=== PATIENT | male | born 1935 | race Caucasian/White ===

== ENCOUNTER 2016-12-02 20:18 | Inpatient (IN) | payer MEDICARE, OTHER ==
[~2016-12-02] VITALS: Ht 175.3 cm; Wt 59.0 kg
[~2016-12-02 20:18] MED LIST: ADVAIR 250-501 EACH INH; ALFUZOSIN HCL10 MG PO; AMBIEN5 MG PO; ASPIRIN EC81 MG PO; ATROVENT HFA12.9 GM HHN; AVODART0.5 MG PO; BYSTOLIC 10MG10 MG *; CARDIZEM60 MG PO; CICLOPIROX15 GM TP; CREON DR 24,001 EACH PO; Daliresp; FLOMAX0.4 MG PO; KLONOPIN1 MG PO; LEVAQUIN500 MG PO; LEXAPRO20 MG PO; LIPITOR10 MG PO; LORAZEPAM0.5 MG PO; MACRODANTIN100 MG PO; MEDROL4 MG PO; MEDROL8 MG PO; MOM30 ML PO; MONTELUKAST SOD10 MG PO; MUCINEX600 MG PO; NEXIUM40 MG PO; NICODERM 21MG/241 EA TD; NITROGLYCERIN0.4 MG SL; PROSCAR5 MG PO; PROTONIX40 MG PO; PROVENTIL4 MG INH; SPIRIVA18 MCG INH; SYMBICORT 1601 PUFFS INH; ZAFIRLUKAST10 MG PO; ZOFRAN4 MG PO; ZOLPIDEM TARTRA10 MG PO; [UNRECOGNIZED DRUG - OTHER]
[2016-12-02] MEDS ORDERED: PROPYLTHIOURACI50 MG PO (20:23)
[2016-12-02] MEDS ORDERED: BYSTOLIC10 MG ORAL (20:23)
[2016-12-02] MEDS ORDERED: CREON DR 24,001 EACH PO (20:23)
[2016-12-02] MEDS ORDERED: Solu-MEDROL 125mg Inj IVP ONE (20:30)
[2016-12-02] MEDS: Albuterol ud Inhalation HHN SCH ×2 (20:32→21:14)
[2016-12-02] MEDS: Ipratropium 0.02% Inh Soln 2.5ml UD HHN SCH ×2 (20:32→21:14)
[2016-12-02 21:09] LABS: BASOPHILS % (AUTO) 1.5 % (0.0-2.0); EOSINOPHILS % (AUTO) 4.4 % (0.0-3.0); LYMPHOCYTES % (AUTO) 8.3 % (20.0-45.0); MEAN CORPUSCULAR HEMOGLOBIN 30.6 PG (27.0-31.0); MEAN CORPUSCULAR HGB CONC 31.5 G/DL (32.0-36.0); MEAN CORPUSCULAR VOLUME 97 FL (80-99); MEAN PLATELET VOLUME 6.1 FL (6.5-10.1); NEUTROPHILS % (AUTO) 76.7 % (45.0-75.0); PLATELET COUNT 195 K/UL (150-450); RED BLOOD COUNT 4.59 M/UL (4.70-6.10); RED CELL DISTRIBUTION WIDTH 12.7 % (11.6-14.8); WHITE BLOOD COUNT 10.1 K/UL (4.8-10.8)
[2016-12-02 21:14] VITALS: BP 127/48
[2016-12-02 21:35] LABS: ALANINE AMINOTRANSFERASE 12 U/L (3-41); ALBUMIN/GLOBULIN RATIO 1.7 (1.0-2.7); ANION GAP 6 (5-15); ASPARTATE AMINO TRANSFERASE 18 U/L (5-40); CALCIUM 9.5 mg/dL (8.6-10.2); CARBON DIOXIDE 38 mEQ/L (20-30); CHLORIDE 98 mEQ/L (98-107); CREATININE 0.7 mg/dL (0.7-1.2); HEMOLYSIS 2; POTASSIUM 4.4 mEQ/L (3.4-4.9); SODIUM 142 mEQ/L (135-145); TOTAL PROTEIN 6.5 g/dL (6.6-8.7); TROPONIN I < 0.30 ng/mL (<=0.30)
[2016-12-02 21:45] LABS: CKMB 1.9 ng/mL (< 6.7)
[2016-12-02] MEDS ORDERED: cefTRIAXone 1 GM in D5W 55 ML IVPB SCH (21:45)
[2016-12-02] MEDS ORDERED: Nitroglycerin Subl 0.4mg tab (Bottle Of 25) SL PRN (21:45)
[2016-12-02] MEDS ORDERED: LORazepam 0.5mg tab ORAL PRN ×2 (21:45→22:45)
[2016-12-02] MEDS ORDERED: Solu-MEDROL 125mg Inj IVP SCH (22:00)
[2016-12-02 22:42] VITALS: BP 95/53
--- NOTE | 2016-12-02 22:46 | Emergency Room Report ---
History of Present Illness General Chief Complaint: Dyspnea/Respdistress Source: Patient, Family Member, EMS Present Illness HPI 81 yo Male presents ED for respiratory distress. Per EMS patient called 911 because he was short of breath today. Patient has history of COPD. Per EMS patient was in distress initially and was started on CPAP + nebs. Upon arrival patient is improved but is still wheezing diffusely. Denies any chest pain. Denies any fevers or chills. Denies sick contacts or recent travel. No other aggravating relieving factors. Denies any other associated symptom Allergies: Coded Allergies: No Known Allergies (Unverified , 09/26/12) Patient History Past Medical History: COPD Past Surgical History: none Pertinent Family History: none Social History: Denies: alcohol use, drug use, smoking Immunizations: UTD Reviewed Nursing Documentation: PMH: Agreed, PSxH: Agreed Nursing Documentation-PMH Past Medical History: No History, Except For Hx Cardiac Problems: No Hx Asthma: No Hx COPD: Yes Hx Cancer: No Hx Gastrointestinal Problems: No Hx Neurological Problems: No Review of Systems All Other Systems: negative except mentioned in HPI Physical Exam Vital Signs Date Time Temp Pulse Resp B/P Pulse Ox O2 Delivery O2 Flow Rate FiO2 12/02/16 20:14 113 21 167/93 100 Simple Mask 15.0 Sp02 EP Interpretation: reviewed, normal General Appearance: alert, GCS 15, non-toxic, mild distress Head: normocephalic Eyes: bilateral eye PERRL, bilateral eye normal inspection ENT: normal ENT inspection Neck: normal inspection Respiratory: chest non-tender, speaking full sentences, wheezing Cardiovascular #1: regular rate, rhythm, no edema Gastrointestinal: normal inspection Rectal: deferred Genitourinary: no CVA tenderness Musculoskeletal: normal inspection Neurologic: alert, oriented x3, responsive, motor strength/tone normal, sensory intact, speech normal Psychiatric: normal inspection Skin: normal inspection Lymphatic: normal inspection Medical Decision Making Diagnostic Impression: Primary Impression: COPD exacerbation ER Course Hospital Course 81-year-old M presenting to ED with SOB. h/o COPD Differential diagnoses include: Pneumonia, CHF exacerbation, pneumothorax, fluid overload Clinical course Patient placed on stretcher. On phototypesetting equipment monitor. Patient looks improved but still has diffuse wheezing. Will discontinue the CPAP and continue on nebulizer treatments I ordered labs, IV fluids, EKG, chest x-ray, blood cultures, UA. Labs - no leukocytosis noted, hemoglobin/hematocrit stable, electrolytes okay, lactate okay, troponins negative CXR - hyperinflated lungs. no infiltrates patient does appear improved but still has wheezing, tachycardic. Antibiotics given per Case discussed with Dr. Arevalo (covering for Dion) and he agreed to the patient to his service for further care and support I feel this is a highly complex case requiring extensive working including EKG/ Rhythm strip, Xray/CT/US, Blood/urine lab work, repeat exams while in ED, and administration of strong opiates/narcotics for pain control, admission to hospital or close patient follow up. Diagnosis - COPD exacerbation Patient admitted to telemetry in serious condition Labs Test 12/02/16 20:55 White Blood Count 10.1 K/UL (4.8-10.8) Red Blood Count 4.59 M/UL (4.70-6.10) Hemoglobin 14.0 G/DL (14.2-18.0) Hematocrit 44.5 % (42.0-52.0) Mean Corpuscular Volume 97 FL (80-99) Mean Corpuscular Hemoglobin 30.6 PG (27.0-31.0) Mean Corpuscular Hemoglobin Concent 31.5 G/DL (32.0-36.0) Red Cell Distribution Width 12.7 % (11.6-14.8) Platelet Count 195 K/UL (150-450) Mean Platelet Volume 6.1 FL (6.5-10.1) Neutrophils (%) (Auto) 76.7 % (45.0-75.0) Lymphocytes (%) (Auto) 8.3 % (20.0-45.0) Monocytes (%) (Auto) 9.0 % (1.0-10.0) Eosinophils (%) (Auto) 4.4 % (0.0-3.0) Basophils (%) (Auto) 1.5 % (0.0-2.0) Sodium Level 142 mEQ/L (135-145) Potassium Level 4.4 mEQ/L (3.4-4.9) Chloride Level 98 mEQ/L (98-107) Carbon Dioxide Level 38 mEQ/L (20-30) Anion Gap 6 (5-15) Blood Urea Nitrogen 14 mg/dL (7-23) Creatinine 0.7 mg/dL (0.7-1.2) Estimat Glomerular Filtration Rate mL/min (>60) Glucose Level 131 mg/dL (74-106) Lactic Acid Level 1.10 mmol/L (0.66-2.22) Calcium Level 9.5 mg/dL (8.6-10.2) Total Bilirubin 0.2 mg/dL (0.0-1.2) Aspartate Amino Transf (AST/SGOT) 18 U/L (5-40) Alanine Aminotransferase (ALT/SGPT) 12 U/L (3-41) Alkaline Phosphatase 84 U/L (40-129) Total Creatine Kinase 29 U/L (38-174) Creatine Kinase MB 1.9 ng/mL (< 6.7) Creatine Kinase MB Relative Index 6.5 Troponin I < 0.30 ng/mL (<=0.30) Pro-B-Type Natriuretic Peptide 178 pg/mL (0-450) Total Protein 6.5 g/dL (6.6-8.7) Albumin 4.1 g/dL (3.5-5.2) Globulin 2.4 g/dL Albumin/Globulin Ratio 1.7 (1.0-2.7) EKG Diagnostic Results Rate: tachycardiac Rhythm: NSR ST Segments: no acute changes ASA given to the pt in ED: No Rhythm Strip Diag. Results EP Interpretation: yes Rhythm: NSR, no PVC's, no ectopy Chest X-Ray Diagnostic Results EP Interpretation: Yes Findings: no consolidation, no effusion, no pneumothorax, no acute cardiopulmonary disease, other - hyperinflated lungs Number of Views: 1 Last Vital Signs Date Time Temp Pulse Resp B/P Pulse Ox O2 Delivery O2 Flow Rate FiO2 12/02/16 22:34 139 18 127/48 100 Room Air 15.0 Status: improved Disposition: ADMITTED INPATIENT Condition: Serious Referrals: NOT CHOSEN ESTEPHANIA/,REFERRING (PCP) BIN HEREDIA M.D. Dec 02, 2016 22:46
[2016-12-03] MEDS: cefTRIAXone 1 GM in D5W 55 ML IVPB SCH ×2
[2016-12-03 00:31] VITALS: BP 113/54
[2016-12-03] MEDS: DuoNeb 0.5-3(2.5)mg/3ml neb HHN SCH ×7 (02:09→23:30)
[2016-12-03 02:55] LABS: APPEARANCE,URINE CLEAR; KETONES,URINE NEGATIVE (NEGATIVE); LEUKOCYTE ESTERASE ,URINE 1+ (NEGATIVE); NITRITE,URINE NEGATIVE (NEGATIVE); PH,URINE 5 (4.5-8.0); PROTEIN,URINE 1+ (NEGATIVE); UROBILINOGEN,URINE NORMAL MG/DL (0.0-1.0)
[2016-12-03 03:08] LABS: BACTERIA,URINE FEW /HPF; MUCUS,URINE FEW /LPF (NONE/OCC); RBC,URINE 0-2 /HPF (0 - 0); SQUAMOUS EPITHELIAL CELL,UR FEW /LPF (NONE/OCC)
[2016-12-03 04:16] VITALS: BP 123/64
[2016-12-03] MEDS: Solu-MEDROL 125mg Inj IVP SCH ×3 (06:25→21:00)
[2016-12-03 07:10] LABS: MEAN CORPUSCULAR HEMOGLOBIN 30.9 PG (27.0-31.0); MEAN CORPUSCULAR HGB CONC 32.4 G/DL (32.0-36.0); MEAN CORPUSCULAR VOLUME 96 FL (80-99); MEAN PLATELET VOLUME 6.8 FL (6.5-10.1); PLATELET COUNT 201 K/UL (150-450); RED BLOOD COUNT 4.03 M/UL (4.70-6.10); RED CELL DISTRIBUTION WIDTH 13.3 % (11.6-14.8); WHITE BLOOD COUNT 6.8 K/UL (4.8-10.8)
[2016-12-03 07:20] LABS: ALANINE AMINOTRANSFERASE 11 U/L (3-41); ALBUMIN/GLOBULIN RATIO 1.4 (1.0-2.7); ANION GAP 16 (5-15); ASPARTATE AMINO TRANSFERASE 16 U/L (5-40); CALCIUM 9.4 mg/dL (8.6-10.2); CARBON DIOXIDE 28 mEQ/L (20-30); CHLORIDE 103 mEQ/L (98-107); CREATININE 0.8 mg/dL (0.7-1.2); HEMOLYSIS 8; POTASSIUM 4.2 mEQ/L (3.4-4.9); SODIUM 147 mEQ/L (135-145); TOTAL PROTEIN 5.7 g/dL (6.6-8.7)
[2016-12-03 08:00] VITALS: BP 125/69
[2016-12-03] MEDS: Montelukast 10mg tablet ORAL SCH (09:26)
[2016-12-03] MEDS: Pancrease Cap ORAL SCH ×3 (09:27→18:07)
[2016-12-03] MEDS: Aspirin EC 81mg tab ORAL SCH (09:27)
[2016-12-03] MEDS: Propylthiouracil 50mg tab ORAL SCH ×3 (09:27→18:07)
[2016-12-03] MEDS: Heparin 5000 units/ml inj SUBQ SCH ×2 (09:31→21:10)
[2016-12-03] MEDS: Advair 250/50 Inhaler - 14 dose INH SCH ×2 (09:55→18:38)
--- NOTE | 2016-12-03 10:05 | Diagnostic Imaging Report ---
Indication: SOB Technique: One view of the chest Comparison: none Findings: Lungs and pleural spaces are clear. Heart size is normal. No significant interim change Impression: No acute process This agrees with the preliminary interpretation provided by the emergency room physician
[2016-12-03 11:00] LABS: BAND NEUTROPHILS % (MANUAL) 0 % (0-8); BASOPHILS % (MANUAL) 0 % (0-2); EOSINOPHILS % (MANUAL) 0 % (0-3); LYMPHOCYTES % (MANUAL) 2 % (20-45); NEUTROPHILS % (MANUAL) 97 % (45-75); PLATELET ESTIMATE ADEQUATE; PLATELET MORPHOLOGY NORMAL; TOTAL CELLS COUNTED 100
[2016-12-03 12:00] VITALS: BP 137/84
--- NOTE | 2016-12-03 12:47 | Consultation ---
Consult Note Assessment/Plan [id number] MARTINA ATWOOD M.D. Dec 03, 2016 12:47
[2016-12-03 13:01] LABS: ABG PCO2 66.8 mmHg (35.0-45.0)
[2016-12-03 13:02] LABS: ABG ALLEN TEST POSITIVE; ABG BASE EXCESS 6.8
[2016-12-03] MEDS ORDERED: DuoNeb 0.5-3(2.5)mg/3ml neb HHN PRN (13:30)
--- NOTE | 2016-12-03 15:37 | History and Physical Report ---
DATE OF ADMISSION: 12/02/2016 CHIEF COMPLAINT: Chronic obstructive pulmonary disease exacerbation and shortness of breath. HISTORY OF PRESENT ILLNESS: The patient is a pleasant 81-year-old male. He has a history of chronic obstructive pulmonary disease, hypertension, pancreatic insufficiency who presented from home with complaints of several days of progressive shortness of breath. He had been using nebulizers at home but has failed to improve. He presented to the emergency room, there he was initially placed on BiPAP. Because of respiratory distress, he has received a dose of intravenous steroids and additional breathing treatment, he has improved but remains significantly symptomatic. He is now admitted for further evaluation and care. The patient denies any fevers or chills. He has had nonproductive cough. He denies any ill contacts. PAST MEDICAL HISTORY: As above. PAST SURGICAL HISTORY: None. CURRENT MEDICATIONS: Reconciled and reviewed. ALLERGIES: None. SOCIAL HISTORY: The patient is a former smoker but quit. No alcohol or drugs. FAMILY HISTORY: None. REVIEW OF SYSTEMS: General: No fever or chills. HEENT: No headaches or visual changes. Cardiopulmonary: Positive shortness of breath, chest tightness. Mild nonproductive cough. Gastrointestinal: No nausea or vomiting. Genitourinary: No urgency or frequency. Musculoskeletal: No joint pain or swelling. Neurologic: No evidence of seizures. PHYSICAL EXAMINATION: VITAL SIGNS: Temperature 98 degrees, blood pressure 123/64, pulse of 108, respirations 20, O2 saturation 98% on 3 liters nasal cannula. GENERAL: The patient is a well-developed male, in no apparent distress. HEART: Regular rate and rhythm. LUNGS: Significant for poor breath sounds with diffuse wheezes and poor air movement. ABDOMEN: Soft, nontender, nondistended. EXTREMITIES: Without clubbing or cyanosis. LABORATORY AND DIAGNOSTIC DATA: White count of 10, hemoglobin 14, hematocrit 44, platelets 195,000. Sodium 142, potassium 4.4, glucose 131, creatinine 0.7. Troponin was negative. Urine was clear. Chest x-ray also was clear ASSESSMENT: This is a pleasant male admitted with complaints of shortness of breath secondary to severe chronic obstructive pulmonary disease exacerbation. 1. Chronic obstructive pulmonary disease exacerbation. 2. Hypertension. 3. History of . PLAN: 1. IV steroids. 2. Respiratory treatments. 3. Empiric antibiotic therapy. 4. Pulmonary consultation and monitor. 5. We will follow up chest x-ray results. 6. The patient will receive deep venous thrombosis and stress ulcer prophylaxis. Nilo Arevalo M.D. DR: Sarabjit JOB#: [id number] CC:
[2016-12-03 16:00] VITALS: BP 119/55
--- NOTE | 2016-12-03 18:27 | Consultation ---
DATE OF CONSULTATION: 12/03/2016 PULMONARY CONSULTATION This is in coverage of Dr. Munir Ashley. CONSULTING PHYSICIAN: Aime Lawrence M.D. REFERRING PHYSICIAN: Nilo Arevalo M.D. REASON FOR CONSULTATION: COPD exacerbation. HISTORY OF PRESENT ILLNESS: The patient is an 81-year-old male smoker with history of COPD, hypertension, hyperlipidemia, tremor, osteoporosis, and tobacco use who presented to the ER after EMS was called with shortness of breath. The patient has been having shortness of breath and wheezing for several days. He has been using his Advair, Spiriva, and p.r.n. albuterol without relief. No fever or chills. No rhinorrhea or congestion. No headaches or dizziness. No nausea, vomiting, diarrhea, or constipation. Chest x-ray was unremarkable. He was started on IV steroids, bronchodilators, and antibiotics and has been transferred to the floor. PAST MEDICAL HISTORY: 1. COPD. 2. Hypertension. 3. Hyperlipidemia. 4. Essential tremor. 5. BPH. 6. History of pancreatic insufficiency. 7. Insomnia. ALLERGIES: No known drug allergies. MEDICATIONS: Prior to admission medications reviewed. SOCIAL HISTORY: He is a smoker. No drug or alcohol. FAMILY HISTORY: Noncontributory. REVIEW OF SYSTEMS: Negative other than HPI. PHYSICAL EXAMINATION: VITAL SIGNS: Temperature 97.1, pulse 97, blood pressure 125/69, respiratory rate 17, and saturating 95% on 2 liters. GENERAL: He is an elderly male, in no acute distress. Awake, alert, and oriented x3. HEENT: Normocephalic and atraumatic. Oropharynx is clear with moist mucous membranes. NECK: Supple without lymphadenopathy or JVP. CHEST: Distant with faint wheezing. HEART: Regular rate and rhythm. ABDOMEN: Soft, nontender, and nondistended. EXTREMITIES: No cyanosis, clubbing, or edema. He does have bilateral upper extremity intention tremor. ANCILLARY DATA: Sodium 147, potassium 4.2, chloride 102, bicarbonate 28, BUN 14, creatinine 0.8, glucose 186. Lactic acid 1.1. LFTs within normal limits. Albumin 3.4 and protein 5.7. White count 6.8, hemoglobin 12.5, hematocrit 38.5, and platelet count 201,000. Urinalysis, 1+ glucose, 1+ protein, and 1+ leukocyte esterase. Influenza A and B negative. Chest x-ray, senescent changes were noted. There were no infiltrates, effusions, or consolidation. There was evidence of hyperinflation. Please note this was reviewed by myself. ASSESSMENT: The patient is an 81-year-old male smoker with a history of chronic obstructive pulmonary disease, hypertension, hyperlipidemia, benign prostatic hyperplasia, and insomnia, presenting with shortness of breath, likely secondary to an exacerbation of his underlying chronic obstructive pulmonary disease. PROBLEM LIST: 1. Chronic obstructive pulmonary disease with acute exacerbation. 2. Hypoxemic respiratory failure secondary to above. 3. Likely superimposed respiratory infection, viral upper respiratory tract infection versus community-acquired tracheobronchitis. 4. Urinary tract infection. 5. Benign prostatic hyperplasia. 6. Hypertension. 7. Hyperlipidemia. 8. Insomnia. 9. History of pancreatic insufficiency. TREATMENT PLAN: 1. Optimize pulmonary hygiene, mobilize as tolerated. 2. Round the clock and p.r.n. DuoNebs. 3. Continue Solu-Medrol 60 IV 3 t.i.d. for now. We will taper based on clinical response. 4. Continue Levaquin. 5. Follow up sputum culture and respiratory panel. 6. Check ABG. 7. We will check a duplex and a D-dimer to rule out venous thromboembolism. 8. Monitor volumes. 9. Heparin subcutaneous for DVT prophylaxis. 10. Continue the patient's Advair. 11. Hold Spiriva while on [id number] ipratropium. We will resume once the patient's bronchodilators have been spaced out. 12. Aspiration precautions. 13. The patient is Full Code. Dr. Arevalo, thank you for allowing us to assist in the care of your patient. If we may be of any assistance in the future, please do not hesitate to ask. Damien Madrid JOB#: [id number] CC:
[2016-12-03 20:00] VITALS: BP 120/69
[2016-12-03] MEDS: Milk of Magnesia 30ml Ud ORAL SCH (21:00)
[2016-12-03] MEDS: Tamsulosin 0.4mg cap ORAL SCH (21:00)
[2016-12-03] MEDS: Zolpidem 5mg tab ORAL SCH (21:00)
[2016-12-04 00:09] VITALS: BP 132/64
[2016-12-04] MEDS: cefTRIAXone 1 GM in D5W 55 ML IVPB SCH (00:09)
[2016-12-04] MEDS: DuoNeb 0.5-3(2.5)mg/3ml neb HHN SCH ×6 (03:31→22:53)
[2016-12-04 04:17] VITALS: BP 124/62
--- NOTE | 2016-12-04 05:57 | Consultation ---
DATE OF CONSULTATION: 12/03/2016 CARDIOLOGY CONSULTATION CONSULTING PHYSICIAN: Farhad Esparza M.D. REQUESTING PHYSICIAN: Nilo Arevaol M.D. REASON FOR CONSULTATION: Tachycardia. HISTORY OF PRESENT ILLNESS: This is an 81-year-old male, presented to the emergency room last night with shortness of breath of one day duration. He was using nebulizers frequently and placed on CPAP in the emergency room, but continued to have distress. He was admitted to the hospital for further management. I have been asked to assist with cardiovascular care addressing his rapid heart rate. The patient denies chest pain. He has noted palpitations. PAST MEDICAL HISTORY: COPD. MEDICATIONS: Reviewed and reconciled. ALLERGIES: None known. REVIEW OF SYSTEMS: No history of irregular heartbeats or atrial fibrillation. No history of endocarditis. No history of myocardial infarction. No known history of blood clotting. PHYSICAL EXAMINATION: VITAL SIGNS: Blood pressure 127/48, pulse 139, respirations 18, and afebrile. HEENT: Normocephalic and atraumatic. Conjunctivae pink. Oropharynx is clear. Mucous membranes dry. NECK: Supple with accessory muscle use. LUNGS: With diminished breath sounds and diffuse expiratory wheezes. CARDIAC: Regular rhythm. Rapid rate. Normal S1 and S2. ABDOMEN: Soft. EXTREMITIES: Without edema. There is no asterixis. LABORATORY AND DIAGNOSTIC DATA: White count 10.1 and hemoglobin 14. Sodium 142, potassium 4.4, bicarbonate 38, BUN 14, and creatinine 0.7. Pro-natriuretic peptide 178. Troponin negative. EKG, sinus tachycardia with no acute abnormalities. Chest x-ray with no acute process. seen. IMPRESSION: 1. Chronic obstructive pulmonary disease with acute exacerbation. 2. Acute bronchospasm. 3. Sinus tachycardia secondary to respiratory insufficiency and inhaled beta agonist therapy. PLAN: 1. Hydration with cautious intravenous steroids. 2. Avoid beta agonist with rapid heart rates above 100. 3. Consider ipratropium and cardiac monitoring. 4. DVT prophylaxis. 5. Venous duplex to assess for possible source of pulmonary emboli. 6. The patient is at high risk in for decompensation in this clinical setting. Farhad Esparza M.D. DR: Berenice JOB#: [id number] CC:
[2016-12-04] MEDS: Solu-MEDROL 125mg Inj IVP SCH ×3 (06:03→22:28)
[2016-12-04 08:00] VITALS: BP 131/72
[2016-12-04 08:24] LABS: ALANINE AMINOTRANSFERASE 29 U/L (3-41); ALBUMIN/GLOBULIN RATIO 1.9 (1.0-2.7); ANION GAP 6 (5-15); ASPARTATE AMINO TRANSFERASE 33 U/L (5-40); CALCIUM 9.4 mg/dL (8.6-10.2); CARBON DIOXIDE 36 mEQ/L (20-30); CHLORIDE 101 mEQ/L (98-107); CREATININE 0.8 mg/dL (0.7-1.2); HEMOLYSIS 12; MAGNESIUM 2.2 mg/dL (1.7-2.5); POTASSIUM 4.6 mEQ/L (3.4-4.9); SODIUM 143 mEQ/L (135-145); TOTAL PROTEIN 5.8 g/dL (6.6-8.7)
[2016-12-04] MEDS: Montelukast 10mg tablet ORAL SCH (08:26)
[2016-12-04] MEDS: Propylthiouracil 50mg tab ORAL SCH ×3 (08:26→18:12)
[2016-12-04] MEDS: Pancrease Cap ORAL SCH ×3 (08:26→18:12)
[2016-12-04] MEDS: Aspirin EC 81mg tab ORAL SCH (08:27)
[2016-12-04] MEDS: Advair 250/50 Inhaler - 14 dose INH SCH ×2 (08:27→19:36)
[2016-12-04] MEDS: Heparin 5000 units/ml inj SUBQ SCH ×2 (08:28→22:28)
--- NOTE | 2016-12-04 09:19 | General Progress Note ---
Assessment/Plan Problem List: (1) COPD exacerbation ICD Codes: J44.1 - Chronic obstructive pulmonary disease with (acute) exacerbation SNOMED: 208646341, [id number] Status: stable Assessment/Plan iv steoids resp rx iv abx monitor abg/cxr Subjective ROS Limited/Unobtainable: No Constitutional: Reports: malaise, weakness HEENT: Reports: no symptoms Cardiovascular: Reports: no symptoms Respiratory: Reports: cough, shortness of breath, wheezing Gastrointestinal/Abdominal: Reports: no symptoms Genitourinary: Reports: no symptoms Neurologic/Psychiatric: Reports: no symptoms Endocrine: Reports: no symptoms Hematologic/Lymphatic: Reports: no symptoms Allergies: Coded Allergies: No Known Allergies (Unverified , 09/26/12) All Systems: reviewed and negative except above Subjective still sob. on venti mask. "a little better." no chest pain on iv steroids and iv abx. Objective Last 24 Hour Vital Signs Date Time Temp Pulse Resp B/P Pulse Ox O2 Delivery O2 Flow Rate FiO2 12/04/16 08:00 97.5 80 19 131/72 97 Venturi Mask 8.0 12/04/16 06:04 86 124/62 12/04/16 04:17 98.3 86 20 124/62 97 12/04/16 04:00 84 12/04/16 03:20 82 18 98 Venturi Mask 8.0 40 12/04/16 03:20 84 18 99 Venturi Mask 8.0 40 12/04/16 00:09 98.7 88 21 132/64 95 Room Air 12/04/16 00:00 81 12/03/16 23:30 78 18 96 Venturi Mask 8.0 40 12/03/16 23:30 81 18 97 Venturi Mask 8.0 40 12/03/16 21:29 Nasal Cannula 12/03/16 21:28 Nasal Cannula 12/03/16 21:10 100 121/48 12/03/16 20:00 94 12/03/16 20:00 98.0 95 20 120/69 95 12/03/16 18:43 85 18 98 Venturi Mask 8.0 40 12/03/16 18:42 87 18 98 Venturi Mask 8.0 40 12/03/16 18:41 96 Venturi Mask 2.0 40 12/03/16 18:41 Venturi Mask 10.0 40 12/03/16 16:00 91 12/03/16 16:00 97.5 90 20 119/55 96 12/03/16 15:58 87 20 98 Venturi Mask 8.0 35 12/03/16 15:48 85 20 97 Venturi Mask 8.0 40 12/03/16 13:14 90 125/69 12/03/16 12:00 97.7 98 18 137/84 95 12/03/16 11:17 90 20 97 Nasal Cannula 2.0 12/03/16 11:07 88 20 96 Nasal Cannula 2.0 12/03/16 09:58 92 20 92 Nasal Cannula 2.0 12/03/16 09:55 91 20 92 Nasal Cannula 2.0 12/03/16 09:52 91 20 92 Nasal Cannula 12/03/16 09:50 91 20 92 Nasal Cannula 2.0 Intake and Output 12/03/16 12/04/16 19:00 07:00 Intake Total 640 ml 55 ml Output Total 450 ml 300 ml Balance 190 ml -245 ml Intake Oral 640 ml IV Total 55 ml Output Urine Total 450 ml 300 ml # Voids 2 2 Laboratory Tests 12/03/16 12:37: Arterial Blood pH 7.330L, Arterial Blood Partial Pressure CO2 66.8*H, Arterial Blood Partial Pressure O2 93.9, Arterial Blood HCO3 34.9H, Arterial Blood Oxygen Saturation 96.3, Arterial Blood Base Excess 6.8, Maxi Test Positive 12/04/16 07:30: Sodium Level 143, Potassium Level 4.6, Chloride Level 101, Carbon Dioxide Level 36H, Anion Gap 6, Blood Urea Nitrogen 30H, Creatinine 0.8, Estimat Glomerular Filtration Rate , Glucose Level 161H, Calcium Level 9.4, Magnesium Level 2.2, Total Bilirubin < 0.2, Aspartate Amino Transf (AST/SGOT) 33, Alanine Aminotransferase (ALT/SGPT) 29, Alkaline Phosphatase 65, Pro-B-Type Natriuretic Peptide 1379H, Total Protein 5.8L, Albumin 3.8, Globulin 2.0, Albumin/Globulin Ratio 1.9 Height (Feet): 5 Height (Inches): 9.00 Weight (Pounds): 130 General Appearance: WD/WN, alert Neck: supple Cardiovascular: normal rate, regular rhythm Respiratory/Chest: expiratory wheezing Abdomen: normal bowel sounds, non tender, soft, no organomegaly Edema: no edema noted Arm (L), no edema noted Arm (R), no edema noted Leg (L), no edema noted Leg (R), no edema noted Pedal (L), no edema noted Pedal (R), no edema noted Generalized CRYSTAL FOSTER Dec 04, 2016 09:19
[2016-12-04 12:00] VITALS: BP 123/71
[2016-12-04 16:00] VITALS: BP 102/78
[2016-12-04 20:00] VITALS: BP 117/61
--- NOTE | 2016-12-04 20:54 | Pulmonology Progress Note ---
Assessment/Plan Assessment/Plan PROBLEM LIST: 1. Chronic obstructive pulmonary disease with acute exacerbation. 2. Hypoxemic respiratory failure secondary to above. 3. Likely superimposed respiratory infection, viral upper respiratory tract infection versus community-acquired tracheobronchitis. 4. Urinary tract infection. 5. Benign prostatic hyperplasia. 6. Hypertension. 7. Hyperlipidemia. 8. Insomnia. 9. History of pancreatic insufficiency. TREATMENT PLAN: 1. Optimize pulmonary hygiene, mobilize as tolerated. 2. Round the clock and p.r.n. DuoNebs. 3. Continue Solu-Medrol 60 IV 3 t.i.d. for now. We will taper based on clinical response. 4. Continue Levaquin. 5. Follow up sputum culture and respiratory panel. 6. Check ABG. 7. We will check a duplex and a D-dimer to rule out venous thromboembolism. 8. Monitor volumes. 9. Heparin subcutaneous for DVT prophylaxis. 10. Continue the patient's Advair. 11. Hold Spiriva while on [id number] ipratropium. We will resume once the patient's bronchodilators have been spaced out. 12. Aspiration precautions. 13. The patient is Full Code. Subjective Constitutional: Reports: no symptoms HEENT: Repors: no symptoms Respiratory: Reports: dry cough, wheezing Cardiovascular: Reports: no symptoms Gastrointestinal/Abdominal: Reports: no symptoms Genitourinary: Reports: no symptoms Neurologic: Reports: no symptoms Endocrine: Reports: no symptoms Hematologic: Reports: no symptoms Allergies: Coded Allergies: No Known Allergies (Unverified , 09/26/12) Subjective awake remains on fm still wheezing but better no cp nv or bleeding toelrating po no fever Objective Last 24 Hour Vital Signs Date Time Temp Pulse Resp B/P Pulse Ox O2 Delivery O2 Flow Rate FiO2 12/04/16 19:51 95 18 98 Venturi Mask 8.0 40 12/04/16 19:30 95 18 98 Venturi Mask 8.0 40 12/04/16 19:20 82 Venturi Mask 8.0 40 12/04/16 19:20 82 18 98 Venturi Mask 8.0 40 12/04/16 19:20 82 19 98 Venturi Mask 8.0 40 12/04/16 19:20 Venturi Mask 8.0 40 12/04/16 16:00 71 12/04/16 16:00 97.2 77 20 102/78 92 Nasal Cannula 4.0 12/04/16 15:35 85 20 97 Nasal Cannula 5.0 40 12/04/16 15:30 82 20 93 Nasal Cannula 5.0 40 12/04/16 13:05 68 123/71 12/04/16 12:00 68 12/04/16 12:00 97.4 78 19 123/71 97 Nasal Cannula 4.0 12/04/16 11:35 84 20 99 Venturi Mask 8.0 40 12/04/16 11:30 82 20 97 Venturi Mask 8.0 40 12/04/16 09:30 80 19 97 Venturi Mask 8.0 40 12/04/16 09:30 82 20 97 Venturi Mask 8.0 40 12/04/16 08:00 97.5 80 19 131/72 97 Venturi Mask 8.0 12/04/16 08:00 78 12/04/16 07:35 82 20 99 Venturi Mask 8.0 40 12/04/16 07:30 Venturi Mask 8.0 40 12/04/16 07:30 82 Venturi Mask 8.0 40 12/04/16 07:30 80 19 97 Venturi Mask 8.0 40 12/04/16 06:04 86 124/62 12/04/16 04:17 98.3 86 20 124/62 97 12/04/16 04:00 84 12/04/16 03:20 82 18 98 Venturi Mask 8.0 40 12/04/16 03:20 84 18 99 Venturi Mask 8.0 40 12/04/16 00:09 98.7 88 21 132/64 95 Room Air 12/04/16 00:00 81 12/03/16 23:30 78 18 96 Venturi Mask 8.0 40 12/03/16 23:30 81 18 97 Venturi Mask 8.0 40 12/03/16 21:29 Nasal Cannula 12/03/16 21:28 Nasal Cannula 12/03/16 21:10 100 121/48 Intake and Output 12/03/16 12/04/16 19:00 07:00 Intake Total 640 ml 55 ml Output Total 450 ml 300 ml Balance 190 ml -245 ml Intake Oral 640 ml IV Total 55 ml Output Urine Total 450 ml 300 ml # Voids 2 2 General Appearance: cachetic HEENT: atraumatic Respiratory/Chest: rhonchi, expiratory wheezing Cardiovascular: normal rate, regular rhythm Abdomen: soft, non tender Extremities: no cyanosis Neurologic/Psychiatric: alert, other - tremor Lymphatic: no neck adenopathy Musculoskeletal: normal muscle bulk Microbiology Date/Time Source Procedure Growth Status 12/02/16 20:55 Blood Blood Culture - Preliminary NO GROWTH AFTER 24 HOURS Resulted 12/02/16 20:40 Blood Blood Culture - Preliminary NO GROWTH AFTER 24 HOURS Resulted 12/03/16 04:10 Nasal Nares Influenza Types A,B Antigen (MEET) - Final Complete Laboratory Tests 12/04/16 07:30: Sodium Level 143, Potassium Level 4.6, Chloride Level 101, Carbon Dioxide Level 36H, Anion Gap 6, Blood Urea Nitrogen 30H, Creatinine 0.8, Estimat Glomerular Filtration Rate , Glucose Level 161H, Calcium Level 9.4, Magnesium Level 2.2, Total Bilirubin < 0.2, Aspartate Amino Transf (AST/SGOT) 33, Alanine Aminotransferase (ALT/SGPT) 29, Alkaline Phosphatase 65, Pro-B-Type Natriuretic Peptide 1379H, Total Protein 5.8L, Albumin 3.8, Globulin 2.0, Albumin/Globulin Ratio 1.9 Current Medications Medications (Trade) Dose Ordered Sig/Larissa Route PRN Reason Start Time Stop Time Status Last Admin Dose Admin Acetaminophen (Tylenol) 650 mg Q4H PRN ORAL Mild Pain/Temp > 100.5 12/03/16 21:15 01/02/17 21:14 12/03/16 22:13 Albuterol/ Ipratropium (DuoNeb 0.5-3(2.5)mg/3ml) 3 ml Q4H PRN HHN Shortness of Breath 12/03/16 13:30 12/08/16 13:29 Albuterol/ Ipratropium (DuoNeb 0.5-3(2.5)mg/3ml) 3 ml Q4HRT HHN 12/02/16 23:00 12/07/16 22:59 12/04/16 19:36 Alfuzosin HCl (Uroxatrol) 10 mg DAILY ORAL 12/03/16 09:00 01/02/17 08:59 12/04/16 08:27 Amylase/Lipase/ Protease (Pancrease) 2 ea THREE TIMES A DAY ORAL 12/03/16 09:00 01/02/17 08:59 12/04/16 18:12 Aspirin (Ecotrin) 81 mg DAILY ORAL 12/03/16 09:00 01/02/17 08:59 12/04/16 08:27 Atorvastatin Calcium (Lipitor) 10 mg BEDTIME ORAL 12/03/16 21:00 01/02/17 20:59 12/03/16 20:59 Ceftriaxone Sodium/Dextrose (Rocephin/D5W) 55 ml @ 110 mls/hr Q24H IVPB 12/03/16 00:00 12/10/16 00:00 12/04/16 00:09 Clonazepam (KlonoPIN) 1 mg Q6H PRN ORAL For Anxiety 12/02/16 21:45 12/09/16 21:44 12/04/16 03:33 Diltiazem HCl (Cardizem) 60 mg Q8HR ORAL 12/02/16 22:00 01/01/17 21:59 12/04/16 13:05 Escitalopram Oxalate (Lexapro) 20 mg DAILY ORAL 12/03/16 09:00 01/02/17 08:59 12/04/16 08:26 Finasteride (Proscar) 5 mg DAILY ORAL 12/03/16 09:00 01/02/17 08:59 12/04/16 08:26 Heparin Sodium (Porcine) 5000 units 5,000 units EVERY 12 HOURS SUBQ 12/03/16 09:00 01/02/17 08:59 12/04/16 08:28 Lorazepam (Ativan) 0.5 mg Q8H PRN ORAL For Anxiety 12/02/16 22:45 12/09/16 21:44 Magnesium Hydroxide (Mom) 30 ml QHS ORAL 12/03/16 21:00 01/02/17 20:59 Methylprednisolone Sodium Succinate (Solu-MEDROL) 60 mg EVERY 8 HOURS IVP 12/03/16 06:00 01/02/17 05:59 12/04/16 13:05 Montelukast Sodium (Singulair) 10 mg DAILY ORAL 12/03/16 09:00 01/02/17 08:59 12/04/16 08:26 Nebivolol (Bystolic) 10 mg DAILY ORAL 12/03/16 09:00 01/02/17 08:59 12/04/16 08:26 Nicotine (Nicoderm) 1 patch DAILY TDERMAL 12/03/16 10:00 01/02/17 09:59 12/04/16 08:26 Nitroglycerin (Ntg) 0.4 mg DAILY PRN SL Prn Chest Pain 12/02/16 21:45 01/01/17 21:44 Propylthiouracil (Ptu) 50 mg TID ORAL 12/03/16 09:00 01/02/17 08:59 12/04/16 18:12 Ranitidine HCl (Zantac) 150 mg BEDTIME ORAL 12/03/16 21:00 01/02/17 20:59 12/03/16 21:00 Salmeterol Xinafoate/ Fluticasone (Advair 250/50 Diskus) 1 puffs BID INH 12/03/16 09:00 01/02/17 08:59 12/04/16 19:36 Tamsulosin HCl (Flomax) 0.4 mg QHS ORAL 12/03/16 21:00 01/02/17 20:59 12/03/16 21:00 Zolpidem Tartrate (Ambien) 5 mg QHS ORAL 12/03/16 21:00 01/02/17 20:59 12/03/16 21:00 INDIGO ZHENG DO Dec 04, 2016 20:54
[2016-12-04] MEDS: Tamsulosin 0.4mg cap ORAL SCH (22:29)
[2016-12-04] MEDS: Milk of Magnesia 30ml Ud ORAL SCH (22:29)
[2016-12-04] MEDS: Zolpidem 5mg tab ORAL SCH (22:29)
[2016-12-05] VITALS: BP 137/72
[2016-12-05] MEDS: cefTRIAXone 1 GM in D5W 55 ML IVPB SCH ×2 (00:15→23:52)
[2016-12-05] MEDS: DuoNeb 0.5-3(2.5)mg/3ml neb HHN SCH ×6 (02:54→23:11)
--- NOTE | 2016-12-05 03:28 | Progress Note ---
DATE: 12/04/2016 CARDIOLOGY PROGRESS NOTE SUBJECTIVE: The patient has continued congestion and shortness of breath. He remains on a face mask for adequate oxygenation. OBJECTIVE: VITAL SIGNS: Blood pressure 102/78, pulse 77, respirations 20, and afebrile. NECK: Accessory muscle use. LUNGS: Bilateral breath sounds with rhonchi. No wheezing. HEART: Regular rhythm and rate. Normal S1 and S2 with a fourth heart sound. ABDOMEN: Soft. EXTREMITIES: No edema. LABORATORY STUDIES: Sodium 143, potassium 4.6, bicarbonate 36, BUN 30, and creatinine 0.8. Magnesium is 3.2. Pro-natriuretic peptide is 1379. IMPRESSION: 1. Chronic obstructive pulmonary disease exacerbation. 2. Acute bronchitis. 3. Acute and chronic diastolic congestive heart failure. 4. Hypoxia. 5. Hypertensive heart disease. PLAN: 1. Inhaled bronchodilators. 2. Antimicrobials. 3. Additional diuresis. 4. DVT prophylaxis. 5. Repeat chest x-ray. 6. Oxygen with titration. Farhad Esparza M.D. DR: MARIA ESTHER JOB#: [id number] CC:
[2016-12-05 04:00] VITALS: BP 125/57
[2016-12-05] MEDS: Solu-MEDROL 125mg Inj IVP SCH ×2 (05:22→17:23)
[2016-12-05 06:52] LABS: MEAN CORPUSCULAR HEMOGLOBIN 30.9 PG (27.0-31.0); MEAN CORPUSCULAR HGB CONC 32.6 G/DL (32.0-36.0); MEAN CORPUSCULAR VOLUME 95 FL (80-99); MEAN PLATELET VOLUME 6.5 FL (6.5-10.1); PLATELET COUNT 190 K/UL (150-450); RED BLOOD COUNT 4.08 M/UL (4.70-6.10); RED CELL DISTRIBUTION WIDTH 12.9 % (11.6-14.8); WHITE BLOOD COUNT 7.6 K/UL (4.8-10.8)
[2016-12-05 07:52] LABS: ALANINE AMINOTRANSFERASE 32 U/L (3-41); ANION GAP 9 (5-15); ASPARTATE AMINO TRANSFERASE 27 U/L (5-40); CALCIUM 8.7 mg/dL (8.6-10.2); CARBON DIOXIDE 37 mEQ/L (20-30); CHLORIDE 96 mEQ/L (98-107); CREATININE 0.8 mg/dL (0.7-1.2); HEMOLYSIS 5; MAGNESIUM 2.7 mg/dL (1.7-2.5); POTASSIUM 4.5 mEQ/L (3.4-4.9); SODIUM 142 mEQ/L (135-145); TOTAL PROTEIN 5.5 g/dL (6.6-8.7)
[2016-12-05 08:00] VITALS: BP 97/52
[2016-12-05] MEDS: Propylthiouracil 50mg tab ORAL SCH ×3 (08:32→17:23)
--- NOTE | 2016-12-05 08:32 | General Progress Note ---
Assessment/Plan Problem List: (1) COPD exacerbation ICD Codes: J44.1 - Chronic obstructive pulmonary disease with (acute) exacerbation SNOMED: 372296140, [id number] Status: stable, progressing Assessment/Plan iv steoids- wean resp rx try to wean venti mask iv abx monitor abg/cxr not stable for dc Subjective ROS Limited/Unobtainable: No Constitutional: Reports: malaise, weakness HEENT: Reports: no symptoms Cardiovascular: Reports: no symptoms Respiratory: Reports: SOB at rest, cough, wheezing Gastrointestinal/Abdominal: Reports: no symptoms Genitourinary: Reports: no symptoms Neurologic/Psychiatric: Reports: no symptoms Endocrine: Reports: no symptoms Hematologic/Lymphatic: Reports: no symptoms Allergies: Coded Allergies: No Known Allergies (Unverified , 09/26/12) All Systems: reviewed and negative except above Subjective still sob. on venti mask. "a little better." no chest pain on iv steroids and iv abx. D/w night rn. Patient desaturated to 60 when placed on nasal cannula. still very weak Objective Last 24 Hour Vital Signs Date Time Temp Pulse Resp B/P Pulse Ox O2 Delivery O2 Flow Rate FiO2 12/05/16 08:00 96.9 72 18 97/52 96 Venturi Mask 14.0 12/05/16 05:22 92 125/57 12/05/16 04:00 84 12/05/16 04:00 97.2 92 20 125/57 98 Venturi Mask 14.0 12/05/16 02:53 Venturi Mask 12/05/16 02:53 Venturi Mask 12/05/16 00:00 97.0 101 19 137/72 97 Venturi Mask 14.0 12/05/16 00:00 86 12/04/16 22:52 Venturi Mask 12/04/16 22:52 Venturi Mask 12/04/16 22:28 93 117/61 12/04/16 20:00 89 12/04/16 20:00 97.7 93 20 117/61 98 Venturi Mask 14.0 12/04/16 19:51 95 18 98 Venturi Mask 8.0 40 12/04/16 19:30 95 18 98 Venturi Mask 8.0 40 12/04/16 19:20 82 Venturi Mask 8.0 40 12/04/16 19:20 82 18 98 Venturi Mask 8.0 40 12/04/16 19:20 82 19 98 Venturi Mask 8.0 40 12/04/16 19:20 Venturi Mask 8.0 40 12/04/16 16:00 71 12/04/16 16:00 97.2 77 20 102/78 92 Nasal Cannula 4.0 12/04/16 15:35 85 20 97 Nasal Cannula 5.0 40 12/04/16 15:30 82 20 93 Nasal Cannula 5.0 40 12/04/16 13:05 68 123/71 12/04/16 12:00 68 12/04/16 12:00 97.4 78 19 123/71 97 Nasal Cannula 4.0 12/04/16 11:35 84 20 99 Venturi Mask 8.0 40 12/04/16 11:30 82 20 97 Venturi Mask 8.0 40 12/04/16 09:30 80 19 97 Venturi Mask 8.0 40 12/04/16 09:30 82 20 97 Venturi Mask 8.0 40 Intake and Output 12/04/16 12/05/16 19:00 07:00 Intake Total 530 ml 350 ml Output Total 360 ml Balance 170 ml 350 ml Intake Oral 530 ml 295 ml IV Total 55 ml Output Urine Total 360 ml # Voids 2 2 Laboratory Tests 12/05/16 05:50: White Blood Count 7.6, Red Blood Count 4.08L, Hemoglobin 12.6L, Hematocrit 38.7L , Mean Corpuscular Volume 95, Mean Corpuscular Hemoglobin 30.9, Mean Corpuscular Hemoglobin Concent 32.6, Red Cell Distribution Width 12.9, Platelet Count 190, Mean Platelet Volume 6.5, Neutrophils (%) (Auto) , Lymphocytes (%) ( Auto) , Monocytes (%) (Auto) , Eosinophils (%) (Auto) , Basophils (%) (Auto) , Neutrophils % (Manual) [Pending], Lymphocytes % (Manual) [Pending], Platelet Estimate [Pending], Platelet Morphology [Pending], Sodium Level 142, Potassium Level 4.5, Chloride Level 96L, Carbon Dioxide Level 37H, Anion Gap 9, Blood Urea Nitrogen 41H, Creatinine 0.8, Estimat Glomerular Filtration Rate , Glucose Level 130H, Calcium Level 8.7, Magnesium Level 2.7H, Total Bilirubin < 0.2, Aspartate Amino Transf (AST/SGOT) 27, Alanine Aminotransferase (ALT/SGPT) 32, Alkaline Phosphatase 61, Total Protein 5.5L, Albumin 3.7, Globulin 1.8, Albumin/ Globulin Ratio 2.0 Height (Feet): 5 Height (Inches): 9.00 Weight (Pounds): 130 Objective General Appearance: WD/WN, alert Neck: supple Cardiovascular: normal rate, regular rhythm Respiratory/Chest: expiratory wheezing- but less. improved air movement Abdomen: normal bowel sounds, non tender, soft, no organomegaly Edema: no edema noted Arm (L), no edema noted Arm (R), no edema noted Leg (L), no edema noted Leg (R), no edema noted Pedal (L), no edema noted Pedal (R), no edema noted Generalized CRYSTAL FOSTER Dec 05, 2016 08:31
[2016-12-05] MEDS: Pancrease Cap ORAL SCH ×3 (08:33→17:22)
[2016-12-05] MEDS: Montelukast 10mg tablet ORAL SCH (08:33)
[2016-12-05] MEDS: Aspirin EC 81mg tab ORAL SCH (08:33)
[2016-12-05] MEDS: Heparin 5000 units/ml inj SUBQ SCH ×2 (08:35→21:28)
[2016-12-05 08:46] LABS: BAND NEUTROPHILS % (MANUAL) 0 % (0-8); BASOPHILS % (MANUAL) 0 % (0-2); EOSINOPHILS % (MANUAL) 0 % (0-3); LYMPHOCYTES % (MANUAL) 8 % (20-45); NEUTROPHILS % (MANUAL) 90 % (45-75); PLATELET ESTIMATE ADEQUATE; PLATELET MORPHOLOGY NORMAL; TOTAL CELLS COUNTED 100
[2016-12-05] MEDS: Advair 250/50 Inhaler - 14 dose INH SCH ×2 (09:00→21:16)
--- NOTE | 2016-12-05 11:04 | Diagnostic Imaging Report ---
\H\Clinical history: Acute shortness of breath. Technique: Frontal and lateral chest radiographs were obtained. Comparison: 12/02/16. Findings: Suspected scarring or trace effusion at the left costophrenic angle. There is otherwise no significant interval change in the interval, allowing for differences in technique and positioning. \N\\H\Impression: Probable scattered changes of chronic lung disease with pulmonary hyperinflation and suspected emphysema. No evidence of pneumonia. Suspected scarring or trace effusion at the left costophrenic angle.\N\
[2016-12-05 12:00] VITALS: BP 117/52
[2016-12-05 16:00] VITALS: BP 113/58
--- NOTE | 2016-12-05 18:10 | Pulmonology Progress Note ---
Assessment/Plan Assessment/Plan PROBLEM LIST: 1. Chronic obstructive pulmonary disease with acute exacerbation. 2. Hypoxemic respiratory failure secondary to above. 3. Likely superimposed respiratory infection, viral upper respiratory tract infection versus community-acquired tracheobronchitis. 4. Urinary tract infection. 5. Benign prostatic hyperplasia. 6. Hypertension. 7. Hyperlipidemia. 8. Insomnia. 9. History of pancreatic insufficiency. TREATMENT PLAN: 1. Optimize pulmonary hygiene, mobilize as tolerated. 2. Round the clock and p.r.n. DuoNebs. 3. Continue Solu-Medrol 60 IV bid for now. We will taper based on clinical response. 4. Continue Levaquin. 5. Follow up sputum culture and respiratory panel. 6. Check ABG. 8. Monitor volumes. 9. Heparin subcutaneous for DVT prophylaxis. 10. Continue the patient's Advair. 11. Hold Spiriva while on exxbo-irr-souhr ipratropium. We will resume once the patient's bronchodilators have been spaced out. 12. Aspiration precautions. 13. The patient is Full Code. Subjective Constitutional: Reports: no symptoms HEENT: Repors: no symptoms Respiratory: Reports: dry cough, shortness of breath Cardiovascular: Reports: no symptoms Genitourinary: Reports: no symptoms Psychiatric: Reports: no symptoms Skin: Reports: no symptoms Allergies: Coded Allergies: No Known Allergies (Unverified , 09/26/12) Subjective awake on nc no wheezing but better no cp nv or bleeding tolerating po no fever oob better today Objective Last 24 Hour Vital Signs Date Time Temp Pulse Resp B/P Pulse Ox O2 Delivery O2 Flow Rate FiO2 12/05/16 16:05 85 18 95 Venturi Mask 5.0 40 12/05/16 16:00 97.5 83 113/58 Venturi Mask 12/05/16 15:55 89 20 95 Venturi Mask 8.0 40 12/05/16 15:55 40 12/05/16 13:03 88 117/52 12/05/16 12:00 97.0 80 19 117/52 97 Venturi Mask 14.0 12/05/16 12:00 88 12/05/16 11:30 79 20 100 Venturi Mask 8.0 40 12/05/16 11:14 50 12/05/16 11:14 78 19 97 Venturi Mask 12.0 50 12/05/16 08:00 96.9 72 18 97/52 96 Venturi Mask 14.0 12/05/16 08:00 64 12/05/16 07:45 75 19 98 Venturi Mask 12.0 50 12/05/16 07:35 71 18 97 Venturi Mask 12.0 50 12/05/16 07:35 71 18 97 Venturi Mask 12.0 50 12/05/16 07:35 97 Venturi Mask 12.0 50 12/05/16 07:35 50 12/05/16 07:35 71 18 97 Venturi Mask 12.0 50 12/05/16 07:35 Venturi Mask 12.0 50 12/05/16 05:22 92 125/57 12/05/16 04:00 84 12/05/16 04:00 97.2 92 20 125/57 98 Venturi Mask 14.0 12/05/16 02:53 Venturi Mask 12/05/16 02:53 Venturi Mask 12/05/16 00:00 97.0 101 19 137/72 97 Venturi Mask 14.0 12/05/16 00:00 86 12/04/16 22:52 Venturi Mask 12/04/16 22:52 Venturi Mask 12/04/16 22:28 93 117/61 12/04/16 20:00 89 12/04/16 20:00 97.7 93 20 117/61 98 Venturi Mask 14.0 12/04/16 19:51 95 18 98 Venturi Mask 8.0 40 12/04/16 19:30 95 18 98 Venturi Mask 8.0 40 12/04/16 19:20 82 Venturi Mask 8.0 40 12/04/16 19:20 82 18 98 Venturi Mask 8.0 40 12/04/16 19:20 82 19 98 Venturi Mask 8.0 40 12/04/16 19:20 Venturi Mask 8.0 40 Intake and Output 12/04/16 12/05/16 19:00 07:00 Intake Total 530 ml 350 ml Output Total 360 ml Balance 170 ml 350 ml Intake Oral 530 ml 295 ml IV Total 55 ml Output Urine Total 360 ml # Voids 2 2 HEENT: atraumatic Respiratory/Chest: rhonchi Cardiovascular: normal peripheral pulses, normal rate, regular rhythm Abdomen: soft, non tender Extremities: no cyanosis Skin: no lesions Neurologic/Psychiatric: senior data analyst II-XII grossly normal, abnormal gait, other - tremor Microbiology Date/Time Source Procedure Growth Status 12/02/16 20:55 Blood Blood Culture - Preliminary NO GROWTH AFTER 48 HOURS Resulted 12/02/16 20:40 Blood Blood Culture - Preliminary NO GROWTH AFTER 48 HOURS Resulted 12/03/16 04:10 Nasal Nares Influenza Types A,B Antigen (MEET) - Final Complete Laboratory Tests 12/05/16 05:50: White Blood Count 7.6, Red Blood Count 4.08L, Hemoglobin 12.6L, Hematocrit 38.7L , Mean Corpuscular Volume 95, Mean Corpuscular Hemoglobin 30.9, Mean Corpuscular Hemoglobin Concent 32.6, Red Cell Distribution Width 12.9, Platelet Count 190, Mean Platelet Volume 6.5, Neutrophils (%) (Auto) , Lymphocytes (%) ( Auto) , Monocytes (%) (Auto) , Eosinophils (%) (Auto) , Basophils (%) (Auto) , Differential Total Cells Counted 100, Neutrophils % (Manual) 90H, Lymphocytes % (Manual) 8L, Monocytes % (Manual) 2, Eosinophils % (Manual) 0, Basophils % ( Manual) 0, Band Neutrophils 0, Platelet Estimate Adequate, Platelet Morphology Normal, Red Blood Cell Morphology Normal, Sodium Level 142, Potassium Level 4.5 , Chloride Level 96L, Carbon Dioxide Level 37H, Anion Gap 9, Blood Urea Nitrogen 41H, Creatinine 0.8, Estimat Glomerular Filtration Rate , Glucose Level 130H, Calcium Level 8.7, Magnesium Level 2.7H, Total Bilirubin < 0.2, Aspartate Amino Transf (AST/SGOT) 27, Alanine Aminotransferase (ALT/SGPT) 32, Alkaline Phosphatase 61, Total Protein 5.5L, Albumin 3.7, Globulin 1.8, Albumin/ Globulin Ratio 2.0 Current Medications Medications (Trade) Dose Ordered Sig/Larissa Route PRN Reason Start Time Stop Time Status Last Admin Dose Admin Acetaminophen (Tylenol) 650 mg Q4H PRN ORAL Mild Pain/Temp > 100.5 12/03/16 21:15 01/02/17 21:14 12/03/16 22:13 Albuterol/ Ipratropium (DuoNeb 0.5-3(2.5)mg/3ml) 3 ml Q4H PRN HHN Shortness of Breath 12/03/16 13:30 12/08/16 13:29 Albuterol/ Ipratropium (DuoNeb 0.5-3(2.5)mg/3ml) 3 ml Q4HRT HHN 12/02/16 23:00 12/07/16 22:59 12/05/16 15:55 Alfuzosin HCl (Uroxatrol) 10 mg DAILY ORAL 12/03/16 09:00 01/02/17 08:59 12/05/16 08:33 Amylase/Lipase/ Protease (Pancrease) 2 ea THREE TIMES A DAY ORAL 12/03/16 09:00 01/02/17 08:59 12/05/16 17:22 Aspirin (Ecotrin) 81 mg DAILY ORAL 12/03/16 09:00 01/02/17 08:59 12/05/16 08:33 Atorvastatin Calcium (Lipitor) 10 mg BEDTIME ORAL 12/03/16 21:00 01/02/17 20:59 12/04/16 22:29 Ceftriaxone Sodium/Dextrose (Rocephin/D5W) 55 ml @ 110 mls/hr Q24H IVPB 12/03/16 00:00 12/10/16 00:00 12/05/16 00:15 Clonazepam (KlonoPIN) 1 mg Q6H PRN ORAL For Anxiety 12/02/16 21:45 12/09/16 21:44 12/04/16 03:33 Diltiazem HCl (Cardizem) 60 mg Q8HR ORAL 12/02/16 22:00 01/01/17 21:59 12/05/16 13:03 Escitalopram Oxalate (Lexapro) 20 mg DAILY ORAL 12/03/16 09:00 01/02/17 08:59 12/05/16 08:33 Finasteride (Proscar) 5 mg DAILY ORAL 12/03/16 09:00 01/02/17 08:59 12/05/16 08:32 Heparin Sodium (Porcine) 5000 units 5,000 units EVERY 12 HOURS SUBQ 12/03/16 09:00 01/02/17 08:59 12/05/16 08:35 Lorazepam (Ativan) 0.5 mg Q8H PRN ORAL For Anxiety 12/02/16 22:45 12/09/16 21:44 Magnesium Hydroxide (Mom) 30 ml QHS ORAL 12/03/16 21:00 01/02/17 20:59 12/04/16 22:29 Methylprednisolone Sodium Succinate (Solu-MEDROL) 60 mg Q12H IVP 12/05/16 18:00 01/04/17 17:59 12/05/16 17:23 Montelukast Sodium (Singulair) 10 mg DAILY ORAL 12/03/16 09:00 01/02/17 08:59 12/05/16 08:33 Nebivolol (Bystolic) 10 mg DAILY ORAL 12/03/16 09:00 01/02/17 08:59 12/04/16 08:26 Nicotine (Nicoderm) 1 patch DAILY TDERMAL 12/03/16 10:00 01/02/17 09:59 12/05/16 08:33 Nitroglycerin (Ntg) 0.4 mg DAILY PRN SL Prn Chest Pain 12/02/16 21:45 01/01/17 21:44 Propylthiouracil (Ptu) 50 mg TID ORAL 12/03/16 09:00 01/02/17 08:59 12/05/16 17:23 Ranitidine HCl (Zantac) 150 mg BEDTIME ORAL 12/03/16 21:00 01/02/17 20:59 12/04/16 22:29 Salmeterol Xinafoate/ Fluticasone (Advair 250/50 Diskus) 1 puffs BID INH 12/03/16 09:00 01/02/17 08:59 12/05/16 09:00 Tamsulosin HCl (Flomax) 0.4 mg QHS ORAL 12/03/16 21:00 01/02/17 20:59 12/04/16 22:29 Zolpidem Tartrate (Ambien) 5 mg QHS ORAL 12/03/16 21:00 01/02/17 20:59 12/04/16 22:29 INDIGO ZHENG DO Dec 05, 2016 18:10
[2016-12-05 20:00] VITALS: BP 130/62
[2016-12-05] MEDS: Milk of Magnesia 30ml Ud ORAL SCH (21:26)
[2016-12-05] MEDS: Tamsulosin 0.4mg cap ORAL SCH (21:27)
[2016-12-05] MEDS: Zolpidem 5mg tab ORAL SCH (21:27)
[2016-12-06] VITALS: BP 123/61
--- NOTE | 2016-12-06 01:48 | Progress Note ---
DATE: 12/05/2016 SUBJECTIVE: The patient is somewhat less short of breath, but he is still requiring a with 40% FiO2. He still has wheezing and congestion. OBJECTIVE: VITAL SIGNS: Blood pressure 113/58, pulse 83, and respiratory rate 20. NECK: Accessory muscle use. LUNGS: breath sounds with bilateral rhonchi. HEART: Regular rhythm and rate. Normal S1 and S2 with a fourth heart sound. ABDOMEN: Soft. EXTREMITIES: No edema. LABORATORY DATA: Sodium 142, potassium 4.5, bicarbonate 37, BUN 41, creatinine 0.8, and albumin 3.7. White count is 7.6 and hemoglobin 12.6. X-ray today revealed hyperinflation, small pleural effusions, and scarring. IMPRESSION: 1. Chronic obstructive pulmonary disease exacerbation. 2. Hypertensive heart disease. 3. Chronic diastolic congestive heart failure with pleural effusion. 4. Graves disease, on . 5. Acute bronchospasm, on beta-angeles therapy. PLAN: 1. Check full thyroid panel. 2. Discontinue beta-angeles. 3. Advance . 4. Continue bronchodilators, steroids, and respiratory hygiene with empiric antibiotics. 5. Taper oxygen requirement as able. The patient remains high risk. Farhad Esparza M.D. DR: RASHID JOB#: [id number] CC:
[2016-12-06] MEDS: DuoNeb 0.5-3(2.5)mg/3ml neb HHN SCH ×6 (02:42→23:34)
[2016-12-06 04:00] VITALS: BP 117/94
[2016-12-06] MEDS: Solu-MEDROL 125mg Inj IVP SCH (05:36)
[2016-12-06] MEDS: Advair 250/50 Inhaler - 14 dose INH SCH ×2 (07:46→19:28)
[2016-12-06 07:57] VITALS: BP 121/52
[2016-12-06 07:59] LABS: ANION GAP 6 (5-15); CALCIUM 8.6 mg/dL (8.6-10.2); CARBON DIOXIDE 38 mEQ/L (20-30); CHLORIDE 98 mEQ/L (98-107); CREATININE 0.8 mg/dL (0.7-1.2); HEMOLYSIS 5; MAGNESIUM 2.9 mg/dL (1.7-2.5); POTASSIUM 4.9 mEQ/L (3.4-4.9); SODIUM 142 mEQ/L (135-145)
[2016-12-06 08:01] LABS: THYROID STIMULATING HORMONE 0.799 uIU/mL (0.300-4.500)
[2016-12-06] MEDS: Pancrease Cap ORAL SCH ×3 (08:53→18:31)
[2016-12-06] MEDS: Montelukast 10mg tablet ORAL SCH (08:53)
[2016-12-06] MEDS: Propylthiouracil 50mg tab ORAL SCH ×3 (08:53→18:31)
[2016-12-06] MEDS: Aspirin EC 81mg tab ORAL SCH (08:54)
[2016-12-06] MEDS: Heparin 5000 units/ml inj SUBQ SCH ×2 (08:55→21:11)
[2016-12-06 11:20] VITALS: BP 110/76
--- NOTE | 2016-12-06 11:55 | General Progress Note ---
Assessment/Plan Problem List: (1) COPD exacerbation ICD Codes: J44.1 - Chronic obstructive pulmonary disease with (acute) exacerbation SNOMED: 052325999, [id number] Assessment/Plan iv steoids- wean pulm follow up resp rx try to wean venti mask iv abx monitor abg/cxr not stable for dc possibly next 2-3 days if able to wean venti mask Subjective ROS Limited/Unobtainable: No Constitutional: Reports: malaise, weakness HEENT: Reports: no symptoms Cardiovascular: Reports: no symptoms Respiratory: Reports: cough, shortness of breath Gastrointestinal/Abdominal: Reports: no symptoms Genitourinary: Reports: no symptoms Neurologic/Psychiatric: Reports: no symptoms Endocrine: Reports: no symptoms Hematologic/Lymphatic: Reports: no symptoms Allergies: Coded Allergies: No Known Allergies (Unverified , 09/26/12) All Systems: reviewed and negative except above Subjective still sob. on venti mask. "a little better." no chest pain on iv steroids and iv abx. D/w night rn. Patient desaturated to 60 when placed on nasal cannula. still very weak Objective Last 24 Hour Vital Signs Date Time Temp Pulse Resp B/P Pulse Ox O2 Delivery O2 Flow Rate FiO2 12/06/16 11:20 96.6 87 20 110/76 96 Venturi Mask 40 12/06/16 08:00 90 12/06/16 07:57 97.3 90 20 121/52 96 Venturi Mask 40 12/06/16 07:49 Venturi Mask 8.0 40 12/06/16 07:48 86 22 97 Venturi Mask 8.0 40 12/06/16 07:40 82 16 96 Venturi Mask 8.0 40 12/06/16 07:39 96 Venturi Mask 8.0 40 12/06/16 05:37 91 117/94 12/06/16 04:00 85 12/06/16 04:00 97.9 91 18 117/94 96 Venturi Mask 6.0 12/06/16 02:50 79 18 97 Venturi Mask 6.0 35 12/06/16 02:44 35 12/06/16 02:42 79 16 95 Venturi Mask 6.0 35 12/06/16 00:00 97.7 90 18 123/61 95 Venturi Mask 6.0 12/06/16 00:00 91 12/05/16 23:53 90 123/61 12/05/16 23:27 101 18 97 Venturi Mask 6.0 35 12/05/16 23:14 35 12/05/16 23:13 96 20 97 Venturi Mask 6.0 35 12/05/16 21:19 101 18 97 Venturi Mask 6.0 35 12/05/16 21:17 101 18 95 Venturi Mask 6.0 35 12/05/16 20:00 92 12/05/16 20:00 97.3 90 18 130/62 Venturi Mask 12/05/16 19:27 107 18 95 Venturi Mask 6.0 35 12/05/16 19:26 Venturi Mask 6.0 35 12/05/16 19:22 92 Venturi Mask 6.0 35 12/05/16 19:21 35 12/05/16 19:19 97 20 92 Venturi Mask 6.0 35 12/05/16 16:05 85 18 95 Venturi Mask 5.0 40 12/05/16 16:00 82 12/05/16 16:00 97.5 83 113/58 Venturi Mask 12/05/16 15:55 89 20 95 Venturi Mask 8.0 40 12/05/16 15:55 40 12/05/16 13:03 88 117/52 12/05/16 12:00 97.0 80 19 117/52 97 Venturi Mask 14.0 12/05/16 12:00 88 Intake and Output 12/05/16 12/06/16 19:00 07:00 Intake Total 420 ml 655 ml Output Total 400 ml Balance 420 ml 255 ml Intake Oral 420 ml 600 ml IV Total 55 ml Output Urine Total 400 ml # Voids 1 1 Laboratory Tests 12/06/16 06:55: Sodium Level 142, Potassium Level 4.9, Chloride Level 98, Carbon Dioxide Level 38H, Anion Gap 6, Blood Urea Nitrogen 50H, Creatinine 0.8, Estimat Glomerular Filtration Rate , Glucose Level 157H, Calcium Level 8.6, Magnesium Level 2.9H, Thyroid Stimulating Hormone (TSH) 0.799, Free Thyroxine 0.99, Triiodothyronine ( T3) Uptake [Pending] Height (Feet): 5 Height (Inches): 9.00 Weight (Pounds): 130 Objective General Appearance: WD/WN, alert Neck: supple Cardiovascular: normal rate, regular rhythm Respiratory/Chest: expiratory wheezing- but less. improved air movement Abdomen: normal bowel sounds, non tender, soft, no organomegaly Edema: no edema noted Arm (L), no edema noted Arm (R), no edema noted Leg (L), no edema noted Leg (R), no edema noted Pedal (L), no edema noted Pedal (R), no edema noted Generalized CRYSTAL FOSTER Dec 06, 2016 11:55
--- NOTE | 2016-12-06 13:38 | Pulmonology Progress Note ---
Assessment/Plan Problems: (1) COPD (chronic obstructive pulmonary disease) (2) COPD exacerbation Assessment/Plan ASSESSMENT: The patient is an 81-year-old male smoker with a history of chronic obstructive pulmonary disease, hypertension, hyperlipidemia, benign prostatic hyperplasia, and insomnia, presenting with shortness of breath, likely secondary to an exacerbation of his underlying chronic obstructive pulmonary disease. PROBLEM LIST: 1. Chronic obstructive pulmonary disease with acute exacerbation. 2. Hypoxemic respiratory failure secondary to above. 3. Likely superimposed respiratory infection, viral upper respiratory tract infection versus community-acquired tracheobronchitis. 4. Urinary tract infection. 5. Benign prostatic hyperplasia. 6. Hypertension. 7. Hyperlipidemia. 8. Insomnia. 9. History of pancreatic insufficiency. TREATMENT PLAN: 1. Optimize pulmonary hygiene, mobilize as tolerated. 2. Continue Advair (hold Spiriva) + Round the clock and p.r.n. DuoNebs. 3. Decrease SM to 40 IV BID and taper 4. Continue CTX (D4) 5. Titrate down FiO2 to keep SaO2 > 90% 6. F/U TTE 7. F/U cardiology recs 8. Monitor volumes. 9. Heparin subcutaneous for DVT prophylaxis. 10. Aspiration precautions. 11. The patient is Full Code. Subjective Allergies: Coded Allergies: No Known Allergies (Unverified , 09/26/12) Subjective Still with high O2 needs, desats when taken off O2 Less cough, some wheezing, no SOB, no F/C, no CP Objective Last 24 Hour Vital Signs Date Time Temp Pulse Resp B/P Pulse Ox O2 Delivery O2 Flow Rate FiO2 12/06/16 13:19 91 110/76 12/06/16 11:54 91 18 98 Venturi Mask 8.0 40 12/06/16 11:45 40 12/06/16 11:45 85 20 96 Venturi Mask 8.0 40 12/06/16 11:20 96.6 87 20 110/76 96 Venturi Mask 40 12/06/16 08:00 90 12/06/16 07:57 97.3 90 20 121/52 96 Venturi Mask 40 12/06/16 07:49 Venturi Mask 8.0 40 12/06/16 07:48 86 22 97 Venturi Mask 8.0 40 12/06/16 07:40 82 16 96 Venturi Mask 8.0 40 12/06/16 07:39 96 Venturi Mask 8.0 40 12/06/16 05:37 91 117/94 12/06/16 04:00 85 12/06/16 04:00 97.9 91 18 117/94 96 Venturi Mask 6.0 12/06/16 02:50 79 18 97 Venturi Mask 6.0 35 12/06/16 02:44 35 12/06/16 02:42 79 16 95 Venturi Mask 6.0 35 12/06/16 00:00 97.7 90 18 123/61 95 Venturi Mask 6.0 12/06/16 00:00 91 12/05/16 23:53 90 123/61 12/05/16 23:27 101 18 97 Venturi Mask 6.0 35 12/05/16 23:14 35 12/05/16 23:13 96 20 97 Venturi Mask 6.0 35 12/05/16 21:19 101 18 97 Venturi Mask 6.0 35 12/05/16 21:17 101 18 95 Venturi Mask 6.0 35 12/05/16 20:00 92 12/05/16 20:00 97.3 90 18 130/62 Venturi Mask 12/05/16 19:27 107 18 95 Venturi Mask 6.0 35 12/05/16 19:26 Venturi Mask 6.0 35 12/05/16 19:22 92 Venturi Mask 6.0 35 12/05/16 19:21 35 12/05/16 19:19 97 20 92 Venturi Mask 6.0 35 12/05/16 16:05 85 18 95 Venturi Mask 5.0 40 12/05/16 16:00 82 12/05/16 16:00 97.5 83 113/58 Venturi Mask 12/05/16 15:55 89 20 95 Venturi Mask 8.0 40 12/05/16 15:55 40 Intake and Output 12/05/16 12/06/16 19:00 07:00 Intake Total 420 ml 655 ml Output Total 400 ml Balance 420 ml 255 ml Intake Oral 420 ml 600 ml IV Total 55 ml Output Urine Total 400 ml # Voids 1 1 General Appearance: no acute distress, cachetic, other - frail elderly HEENT: normocephalic, atraumatic, mucous membranes moist Respiratory/Chest: lungs clear - but distant Cardiovascular: normal peripheral pulses, normal rate, regular rhythm Abdomen: normal bowel sounds, soft, non tender, no organomegaly, non distended Extremities: no cyanosis, no clubbing, no edema Laboratory Tests 12/06/16 06:55: Sodium Level 142, Potassium Level 4.9, Chloride Level 98, Carbon Dioxide Level 38H, Anion Gap 6, Blood Urea Nitrogen 50H, Creatinine 0.8, Estimat Glomerular Filtration Rate , Glucose Level 157H, Calcium Level 8.6, Magnesium Level 2.9H, Thyroid Stimulating Hormone (TSH) 0.799, Free Thyroxine 0.99, Triiodothyronine ( T3) Uptake [Pending] Current Medications Medications (Trade) Dose Ordered Sig/Larissa Route PRN Reason Start Time Stop Time Status Last Admin Dose Admin Acetaminophen (Tylenol) 650 mg Q4H PRN ORAL Mild Pain/Temp > 100.5 12/03/16 21:15 01/02/17 21:14 12/03/16 22:13 Albuterol/ Ipratropium (DuoNeb 0.5-3(2.5)mg/3ml) 3 ml Q4H PRN HHN Shortness of Breath 12/03/16 13:30 12/08/16 13:29 Albuterol/ Ipratropium (DuoNeb 0.5-3(2.5)mg/3ml) 3 ml Q4HRT HHN 12/02/16 23:00 12/07/16 22:59 12/06/16 11:45 Alfuzosin HCl (Uroxatrol) 10 mg DAILY ORAL 12/03/16 09:00 01/02/17 08:59 12/06/16 08:54 Amylase/Lipase/ Protease (Pancrease) 2 ea THREE TIMES A DAY ORAL 12/03/16 09:00 01/02/17 08:59 12/06/16 13:19 Aspirin (Ecotrin) 81 mg DAILY ORAL 12/03/16 09:00 01/02/17 08:59 12/06/16 08:54 Atorvastatin Calcium (Lipitor) 10 mg BEDTIME ORAL 12/03/16 21:00 01/02/17 20:59 12/05/16 21:27 Ceftriaxone Sodium/Dextrose (Rocephin/D5W) 55 ml @ 110 mls/hr Q24H IVPB 12/03/16 00:00 12/10/16 00:00 12/05/16 23:52 Clonazepam (KlonoPIN) 1 mg Q6H PRN ORAL For Anxiety 12/02/16 21:45 12/09/16 21:44 12/04/16 03:33 Diltiazem HCl (Cardizem) 60 mg EVERY 6 HOURS ORAL 12/06/16 00:00 01/05/17 00:00 12/06/16 13:19 Escitalopram Oxalate (Lexapro) 20 mg DAILY ORAL 12/03/16 09:00 01/02/17 08:59 12/06/16 08:53 Finasteride (Proscar) 5 mg DAILY ORAL 12/03/16 09:00 01/02/17 08:59 12/06/16 08:53 Heparin Sodium (Porcine) 5000 units 5,000 units EVERY 12 HOURS SUBQ 12/03/16 09:00 01/02/17 08:59 12/06/16 08:55 Lorazepam (Ativan) 0.5 mg Q8H PRN ORAL For Anxiety 12/02/16 22:45 12/09/16 21:44 Magnesium Hydroxide (Mom) 30 ml QHS ORAL 12/03/16 21:00 01/02/17 20:59 12/05/16 21:26 Methylprednisolone Sodium Succinate (Solu-MEDROL) 60 mg Q12H IVP 12/05/16 18:00 01/04/17 17:59 12/06/16 05:36 Montelukast Sodium (Singulair) 10 mg DAILY ORAL 12/03/16 09:00 01/02/17 08:59 12/06/16 08:53 Nicotine (Nicoderm) 1 patch DAILY TDERMAL 12/03/16 10:00 01/02/17 09:59 12/06/16 08:57 Nitroglycerin (Ntg) 0.4 mg DAILY PRN SL Prn Chest Pain 12/02/16 21:45 01/01/17 21:44 Propylthiouracil (Ptu) 50 mg TID ORAL 12/03/16 09:00 01/02/17 08:59 12/06/16 13:20 Ranitidine HCl (Zantac) 150 mg BEDTIME ORAL 12/03/16 21:00 01/02/17 20:59 12/05/16 21:27 Salmeterol Xinafoate/ Fluticasone (Advair 250/50 Diskus) 1 puffs BID INH 12/03/16 09:00 01/02/17 08:59 12/06/16 07:46 Tamsulosin HCl (Flomax) 0.4 mg QHS ORAL 12/03/16 21:00 01/02/17 20:59 12/05/16 21:27 Zolpidem Tartrate (Ambien) 5 mg QHS ORAL 12/03/16 21:00 01/02/17 20:59 12/05/16 21:27 MARTINA ATWOOD M.D. Dec 06, 2016 13:37
[2016-12-06 14:09] LABS: ABG ALLEN TEST POSITIVE; ABG BASE EXCESS 10.6; ABG PCO2 59.7 mmHg (35.0-45.0)
[2016-12-06 16:00] VITALS: BP 136/62
[2016-12-06 20:00] VITALS: BP 131/69
[2016-12-06] MEDS: Milk of Magnesia 30ml Ud ORAL SCH ×3 (21:00→21:35)
[2016-12-06] MEDS ORDERED: Solu-MEDROL 40mg Inj IVP SCH (21:00)
[2016-12-06] MEDS: Tamsulosin 0.4mg cap ORAL SCH (21:10)
[2016-12-06] MEDS: Zolpidem 5mg tab ORAL SCH (21:10)
[2016-12-07 00:13] VITALS: BP 106/61
[2016-12-07] MEDS: cefTRIAXone 1 GM in D5W 55 ML IVPB SCH (00:59)
--- NOTE | 2016-12-07 02:29 | Progress Note ---
DATE: 12/06/2016 CARDIOLOGY PROGRESS NOTE SUBJECTIVE: The patient continues to have congestion. His oxygen requirements are decreasing. OBJECTIVE: VITAL SIGNS: He is afebrile. Blood pressure 110/76, pulse 87, and respirations 20. LUNGS: Bilateral rhonchi. Some expiratory wheezing. HEART: Regular rhythm rate. Normal S1 and S2 with a fourth heart sound. ABDOMEN: Soft. Trace dependent edema. LABORATORY DATA: ABG today, pH 7.41, pCO2 60, and pO2 74. Sodium 142, potassium 4.9, bicarb 38, BUN 50, and creatinine 0.8. TSH is 0.8. Free T4 is 0.99. IMPRESSION: 1. Chronic obstructive pulmonary disease exacerbation. 2. Bronchospasm. 3. Hypoxia. 4. Bronchial pneumonia. 5. Hyperglycemia. 6. Acute and chronic diastolic congestive heart failure. 7. Paroxysmal sinus tachycardia. 8. Graves disease on propylthiouracil. 9. Metabolic alkalosis PLAN: 1. Antibiotics. 2. Respiratory hygiene. 3. Taper oxygen. 4. Continue current dose of propylthiouracil. 5. Protein supplement. 6. DVT prophylaxis. 7. Cautious diuresis with Diamox in view of acid-base parameters. Farhad Esparza M.D. DR: SLIM JOB#: [id number] CC:
[2016-12-07] MEDS: DuoNeb 0.5-3(2.5)mg/3ml neb HHN SCH ×6 (03:26→23:09)
[2016-12-07 04:23] VITALS: BP 109/55
[2016-12-07] MEDS: Advair 250/50 Inhaler - 14 dose INH SCH ×2 (07:24→19:35)
[2016-12-07 08:00] VITALS: BP 124/81
--- NOTE | 2016-12-07 08:34 | General Progress Note ---
Assessment/Plan Problem List: (1) COPD exacerbation ICD Codes: J44.1 - Chronic obstructive pulmonary disease with (acute) exacerbation SNOMED: 485545753, [id number] (2) BPH (benign prostatic hypertrophy) with urinary obstruction ICD Codes: N40.1 - Benign prostatic hyperplasia with lower urinary tract symptoms; N13.8 - Other obstructive and reflux uropathy SNOMED: 887372410 (3) BPH (benign prostatic hypertrophy) with urinary retention ICD Codes: N40.1 - Benign prostatic hyperplasia with lower urinary tract symptoms; R33.8 - Other retention of urine SNOMED: [id number], [id number] Status: progressing Assessment/Plan iv steoids- wean pulm follow up resp rx wean fio2 iv abx monitor abg/cxr soler increase flomax Subjective ROS Limited/Unobtainable: No Constitutional: Reports: malaise, weakness HEENT: Reports: no symptoms Cardiovascular: Reports: no symptoms Respiratory: Reports: shortness of breath Gastrointestinal/Abdominal: Reports: no symptoms Genitourinary: Reports: other - cant void Neurologic/Psychiatric: Reports: no symptoms Endocrine: Reports: no symptoms Allergies: Coded Allergies: No Known Allergies (Unverified , 09/26/12) All Systems: reviewed and negative except above Subjective less sob. less congested. cant void. Objective Last 24 Hour Vital Signs Date Time Temp Pulse Resp B/P Pulse Ox O2 Delivery O2 Flow Rate FiO2 12/07/16 08:00 96.3 95 20 124/81 98 Nasal Cannula 5.0 12/07/16 07:26 95 18 99 Nasal Cannula 5.0 12/07/16 07:25 Nasal Cannula 5.0 12/07/16 07:17 91 18 97 Nasal Cannula 5.0 12/07/16 07:15 97 Nasal Cannula 5.0 12/07/16 05:43 95 126/67 12/07/16 04:23 98.0 95 20 109/55 96 Room Air 12/07/16 04:00 87 12/07/16 03:27 92 18 95 Nasal Cannula 5.0 12/07/16 03:27 92 20 95 Nasal Cannula 5.0 12/07/16 00:13 97.0 96 20 106/61 96 Nasal Cannula 2.0 12/07/16 00:00 96 106/61 12/06/16 23:53 96 12/06/16 23:35 88 20 96 Nasal Cannula 5.0 12/06/16 23:34 87 18 95 Nasal Cannula 5.0 12/06/16 20:00 106 12/06/16 20:00 98.4 104 20 131/69 94 Nasal Cannula 5.0 12/06/16 19:32 96 20 96 Nasal Cannula 5.0 12/06/16 19:31 101 18 96 Nasal Cannula 5.0 12/06/16 19:31 Nasal Cannula 5.0 12/06/16 19:30 94 Nasal Cannula 5.0 12/06/16 18:31 100 136/62 12/06/16 16:00 98.0 100 22 136/62 93 Nasal Cannula 5.0 12/06/16 16:00 95 12/06/16 15:56 98 23 98 Nasal Cannula 5.0 12/06/16 15:45 100 29 83 Nasal Cannula 5.0 12/06/16 13:19 91 110/76 12/06/16 12:00 91 12/06/16 11:54 91 18 98 Venturi Mask 8.0 40 12/06/16 11:45 40 12/06/16 11:45 85 20 96 Venturi Mask 8.0 40 12/06/16 11:20 96.6 87 20 110/76 96 Venturi Mask 40 Intake and Output 12/06/16 12/07/16 19:00 07:00 Intake Total 120 ml 110 ml Output Total 100 ml 360 ml Balance 20 ml -250 ml Intake Oral 120 ml IV Total 110 ml Output Urine Total 100 ml 360 ml Laboratory Tests 12/06/16 13:38: Arterial Blood pH 7.415, Arterial Blood Partial Pressure CO2 59.7*H, Arterial Blood Partial Pressure O2 73.8L, Arterial Blood HCO3 37.4H, Arterial Blood Oxygen Saturation 94.0, Arterial Blood Base Excess 10.6, Maxi Test Positive Height (Feet): 5 Height (Inches): 9.00 Weight (Pounds): 130 Objective General Appearance: WD/WN, alert Neck: supple Cardiovascular: normal rate, regular rhythm Respiratory/Chest: minimal wheezing. improved air movement Abdomen: normal bowel sounds, non tender, soft, no organomegaly Edema: no edema noted Arm (L), no edema noted Arm (R), no edema noted Leg (L), no edema noted Leg (R), no edema noted Pedal (L), no edema noted Pedal (R), no edema noted Generalized CRYSTAL FOSTER Dec 07, 2016 08:34
--- NOTE | 2016-12-07 09:13 | Pulmonology Progress Note ---
Assessment/Plan Problems: (1) COPD (chronic obstructive pulmonary disease) (2) COPD exacerbation Assessment/Plan ASSESSMENT: The patient is an 81-year-old male smoker with a history of chronic obstructive pulmonary disease, hypertension, hyperlipidemia, benign prostatic hyperplasia, and insomnia, presenting with shortness of breath, likely secondary to an exacerbation of his underlying chronic obstructive pulmonary disease. PROBLEM LIST: 1. Chronic obstructive pulmonary disease with acute exacerbation. 2. Hypoxemic respiratory failure secondary to above. 3. Likely superimposed respiratory infection, viral upper respiratory tract infection versus community-acquired tracheobronchitis. 4. Urinary tract infection. 5. Benign prostatic hyperplasia --> now with urinary retention 6. Hypertension. 7. Hyperlipidemia. 8. Insomnia. 9. History of pancreatic insufficiency. 10. Grave's disease 11. CHF with DD and mod TREATMENT PLAN: 1. Optimize pulmonary hygiene, mobilize as tolerated. 2. Continue Advair (hold Spiriva) + Round the clock and p.r.n. DuoNebs. 3. Decrease SM to 30 IV BID and taper 4. Continue CTX (D5) 5. Titrate down FiO2 to keep SaO2 > 90% 6. TTE reviewed 7. F/U cardiology recs 8. Monitor volumes/diamox per cards 9. Heparin subcutaneous for DVT prophylaxis. 10. Aspiration precautions. 11. The patient is Full Code. Subjective Allergies: Coded Allergies: No Known Allergies (Unverified , 09/26/12) Subjective Better, on 5L now, less SOB, no cough, no wheezing Started on Diamox by cards + urinary retention Objective Last 24 Hour Vital Signs Date Time Temp Pulse Resp B/P Pulse Ox O2 Delivery O2 Flow Rate FiO2 12/07/16 08:00 96.3 95 20 124/81 98 Nasal Cannula 5.0 12/07/16 07:26 95 18 99 Nasal Cannula 5.0 12/07/16 07:25 Nasal Cannula 5.0 12/07/16 07:17 91 18 97 Nasal Cannula 5.0 12/07/16 07:15 97 Nasal Cannula 5.0 12/07/16 05:43 95 126/67 12/07/16 04:23 98.0 95 20 109/55 96 Room Air 12/07/16 04:00 87 12/07/16 03:27 92 18 95 Nasal Cannula 5.0 12/07/16 03:27 92 20 95 Nasal Cannula 5.0 12/07/16 00:13 97.0 96 20 106/61 96 Nasal Cannula 2.0 12/07/16 00:00 96 106/61 12/06/16 23:53 96 12/06/16 23:35 88 20 96 Nasal Cannula 5.0 12/06/16 23:34 87 18 95 Nasal Cannula 5.0 12/06/16 20:00 106 12/06/16 20:00 98.4 104 20 131/69 94 Nasal Cannula 5.0 12/06/16 19:32 96 20 96 Nasal Cannula 5.0 12/06/16 19:31 101 18 96 Nasal Cannula 5.0 12/06/16 19:31 Nasal Cannula 5.0 12/06/16 19:30 94 Nasal Cannula 5.0 12/06/16 18:31 100 136/62 12/06/16 16:00 98.0 100 22 136/62 93 Nasal Cannula 5.0 12/06/16 16:00 95 12/06/16 15:56 98 23 98 Nasal Cannula 5.0 12/06/16 15:45 100 29 83 Nasal Cannula 5.0 12/06/16 13:19 91 110/76 12/06/16 12:00 91 12/06/16 11:54 91 18 98 Venturi Mask 8.0 40 12/06/16 11:45 40 12/06/16 11:45 85 20 96 Venturi Mask 8.0 40 12/06/16 11:20 96.6 87 20 110/76 96 Venturi Mask 40 Intake and Output 12/06/16 12/07/16 19:00 07:00 Intake Total 120 ml 110 ml Output Total 100 ml 360 ml Balance 20 ml -250 ml Intake Oral 120 ml IV Total 110 ml Output Urine Total 100 ml 360 ml General Appearance: no acute distress, cachetic, other - frail elderly male HEENT: normocephalic, atraumatic, mucous membranes moist Respiratory/Chest: lungs clear - but distant, rhonchi - faint Cardiovascular: normal peripheral pulses, normal rate, regular rhythm Abdomen: normal bowel sounds, soft, non tender, no organomegaly, non distended Extremities: no cyanosis, no clubbing, no edema Laboratory Tests 12/06/16 13:38: Arterial Blood pH 7.415, Arterial Blood Partial Pressure CO2 59.7*H, Arterial Blood Partial Pressure O2 73.8L, Arterial Blood HCO3 37.4H, Arterial Blood Oxygen Saturation 94.0, Arterial Blood Base Excess 10.6, Maxi Test Positive Current Medications Medications (Trade) Dose Ordered Sig/Larissa Route PRN Reason Start Time Stop Time Status Last Admin Dose Admin Acetaminophen (Tylenol) 650 mg Q4H PRN ORAL Mild Pain/Temp > 100.5 12/03/16 21:15 01/02/17 21:14 12/03/16 22:13 Acetazolamide (Diamox) 250 mg TWICE A DAY ORAL 12/07/16 09:00 01/06/17 08:59 Albuterol/ Ipratropium (DuoNeb 0.5-3(2.5)mg/3ml) 3 ml Q4H PRN HHN Shortness of Breath 12/03/16 13:30 12/08/16 13:29 Albuterol/ Ipratropium (DuoNeb 0.5-3(2.5)mg/3ml) 3 ml Q4HRT HHN 12/02/16 23:00 12/07/16 22:59 12/07/16 07:23 Alfuzosin HCl (Uroxatrol) 10 mg DAILY ORAL 12/03/16 09:00 01/02/17 08:59 12/06/16 08:54 Amylase/Lipase/ Protease (Pancrease) 2 ea THREE TIMES A DAY ORAL 12/03/16 09:00 01/02/17 08:59 12/06/16 18:31 Aspirin (Ecotrin) 81 mg DAILY ORAL 12/03/16 09:00 01/02/17 08:59 12/06/16 08:54 Atorvastatin Calcium (Lipitor) 10 mg BEDTIME ORAL 12/03/16 21:00 01/02/17 20:59 12/06/16 21:10 Ceftriaxone Sodium/Dextrose (Rocephin/D5W) 55 ml @ 110 mls/hr Q24H IVPB 12/03/16 00:00 12/10/16 00:00 12/07/16 00:59 Clonazepam (KlonoPIN) 1 mg Q6H PRN ORAL For Anxiety 12/02/16 21:45 12/09/16 21:44 12/06/16 23:54 Diltiazem HCl (Cardizem) 60 mg EVERY 6 HOURS ORAL 12/06/16 00:00 01/05/17 00:00 12/07/16 05:43 Escitalopram Oxalate (Lexapro) 20 mg DAILY ORAL 12/03/16 09:00 01/02/17 08:59 12/06/16 08:53 Finasteride (Proscar) 5 mg DAILY ORAL 12/03/16 09:00 01/02/17 08:59 12/06/16 08:53 Heparin Sodium (Porcine) 5000 units 5,000 units EVERY 12 HOURS SUBQ 12/03/16 09:00 01/02/17 08:59 12/06/16 21:11 Lorazepam (Ativan) 0.5 mg Q8H PRN ORAL For Anxiety 12/02/16 22:45 12/09/16 21:44 12/06/16 23:57 Magnesium Hydroxide (Mom) 30 ml QHS ORAL 12/03/16 21:00 01/02/17 20:59 12/05/16 21:26 Methylprednisolone Sodium Succinate (Solu-MEDROL) 40 mg Q12HR IVP 12/06/16 21:00 01/05/17 20:59 12/06/16 21:10 Montelukast Sodium (Singulair) 10 mg DAILY ORAL 12/03/16 09:00 01/02/17 08:59 12/06/16 08:53 Nicotine (Nicoderm) 1 patch DAILY TDERMAL 12/03/16 10:00 01/02/17 09:59 12/06/16 08:57 Nitroglycerin (Ntg) 0.4 mg DAILY PRN SL Prn Chest Pain 12/02/16 21:45 01/01/17 21:44 Propylthiouracil (Ptu) 50 mg TID ORAL 12/03/16 09:00 01/02/17 08:59 12/06/16 18:31 Ranitidine HCl (Zantac) 150 mg BEDTIME ORAL 12/03/16 21:00 01/02/17 20:59 12/06/16 21:10 Salmeterol Xinafoate/ Fluticasone (Advair 250/50 Diskus) 1 puffs BID INH 12/03/16 09:00 01/02/17 08:59 12/07/16 07:24 Tamsulosin HCl (Flomax) 0.8 mg QHS ORAL 12/07/16 21:00 01/06/17 20:59 Zolpidem Tartrate (Ambien) 5 mg QHS ORAL 12/03/16 21:00 01/02/17 20:59 12/06/16 21:10 MARTINA ATWOOD M.D. Dec 07, 2016 09:13
[2016-12-07] MEDS: Pancrease Cap ORAL SCH ×3 (09:39→17:59)
[2016-12-07] MEDS: Propylthiouracil 50mg tab ORAL SCH ×3 (09:40→17:58)
[2016-12-07] MEDS: Montelukast 10mg tablet ORAL SCH (09:41)
[2016-12-07] MEDS: Aspirin EC 81mg tab ORAL SCH (09:41)
[2016-12-07] MEDS: Heparin 5000 units/ml inj SUBQ SCH ×2 (09:42→22:00)
[2016-12-07] MEDS ORDERED: Solu-MEDROL 40mg Inj IVP SCH (10:00)
[2016-12-07 11:24] VITALS: BP 125/64
[2016-12-07] MEDS ORDERED: Cathflo Alteplase 2mg Inj INJ ONE (13:00)
[2016-12-07] MEDS ORDERED: Tubing IV Secondary IV ONE (15:04)
[2016-12-07 16:00] VITALS: BP 131/58
[2016-12-07] MEDS ORDERED: DuoNeb 0.5-3(2.5)mg/3ml neb HHN PRN (17:00)
[2016-12-07] MEDS ORDERED: LORazepam 0.5mg tab ORAL PRN (17:00)
[2016-12-07] MEDS ORDERED: Nitroglycerin Subl 0.4mg tab (Bottle Of 25) SL PRN (18:00)
[2016-12-07 20:00] VITALS: BP 123/60
--- NOTE | 2016-12-07 20:28 | Cardiology Report ---
APPROVED REPORT EKG Measurement Heart [id number] [id number] Sinus tachycardia Left axis deviation Cannot rule out Anteroseptal infarct, age undetermined Abnormal ECG
--- NOTE | 2016-12-07 20:48 | Consultation ---
DATE OF CONSULTATION: 12/07/2016 CONSULTING PHYSICIAN: Jostin Arcos M.D. REFERRING PHYSICIAN: Nilo Arevalo M.D. REASON FOR CONSULTATION: For evaluation of urinary retention. HISTORY OF PRESENT ILLNESS: This is an 81-year-old male with a history of COPD who was admitted to the hospital because of exacerbation with shortness of breath. The patient has a history of BPH and has had difficulty voiding. Earlier this morning, a Hatch catheter was placed with over 600 mL of residual urine, and Urology evaluation is requested. The patient is Estonian speaking. I did talk to him through an mixing roll operator. He denies previous prostate surgery. PAST MEDICAL HISTORY: Significant for above, again COPD, also history of hypertension, history of pancreatic insufficiency, and BPH. PAST SURGICAL HISTORY: Unknown. MEDICATIONS: Current medications in the hospital, the patient is on Solu-Medrol, Diamox, Cardizem, Tylenol, Lipitor, , Ambien, Zantac, DuoNeb, NicoDerm, Uroxatral, Ecotrin, Proscar, Advair, Singulair, Lexapro, Pancreaze, heparin, Rocephin, Ativan, Klonopin, and nitroglycerin. ALLERGIES: No known drug allergies. SOCIAL HISTORY: He is currently nonsmoker. REVIEW OF SYSTEMS: As above. FAMILY HISTORY: Noncontributory. PHYSICAL EXAMINATION: GENERAL: The patient is an elderly male, in no acute distress. VITAL SIGNS: Temperature is 96.6, blood pressure is 125/64, pulse is 86, and respirations are 20. HEENT: Normocephalic. NECK: Supple. ABDOMEN: Soft. BACK: There is no CVA tenderness. GENITOURINARY: Normal phallus. There is a Hatch catheter in place draining yellow urine. RECTAL: Firm prostate about 40 grams. EXTREMITIES: No clubbing or cyanosis. LABORATORY DATA: His UA showed 5 to 10 WBCs, 1+ leukocytes, and 1+ protein. White count is 7.6, hemoglobin 12.6, and platelets are 190,000. BUN is 50, creatinine 0.8, and potassium 4.9. DIAGNOSTIC IMAGING: The patient had a chest x-ray, which was reviewed. IMPRESSION: 1. Urinary retention. 2. Benign prostatic hypertrophy. 3. Possible neurogenic bladder. 4. Pyuria. 5. Proteinuria. 6. Possible chronic prostatitis. PLAN AND DISCUSSION: Again as noted above, the patient did have difficulty voiding and Hatch catheter is indwelling. He is on maximal medical therapy. He is already on finasteride and Uroxatral, and his Flomax has been increased to 0.8 mg, which I agree with. I would recommend keeping the Hatch catheter indwelling with a voiding trial once he is a bit more ambulatory. He did have pyuria and he may have a component of chronic prostatitis and he is on antibiotics. At some point, he may need to have cystoscopy to evaluate the lower urinary tract. I will follow the patient and any other recommendations will be forthcoming. Thank you, Dr. Arevalo, for asking me to see this patient in consultation. Jostin Arcos M.D. DR: RAYSA JOB#: [id number] CC: Wu Martini M.D. Ashkan Naraghi, M.D.
[2016-12-07] MEDS ORDERED: Tamsulosin 0.4mg cap ORAL SCH (21:00)
[2016-12-07] MEDS: Milk of Magnesia 30ml Ud ORAL SCH (21:57)
[2016-12-07] MEDS: Solu-MEDROL 40mg Inj IVP SCH (21:58)
[2016-12-07] MEDS: Zolpidem 5mg tab ORAL SCH (21:58)
[2016-12-07] MEDS: Tamsulosin 0.4mg cap ORAL SCH (21:58)
[2016-12-08] VITALS: BP 110/60
[2016-12-08] MEDS: cefTRIAXone 1 GM in D5W 55 ML IVPB SCH (00:34)
--- NOTE | 2016-12-08 01:27 | Progress Note ---
DATE: 12/07/2016 SUBJECTIVE: The patient remains with congestion, hypoxia, and shortness of breath with activity. OBJECTIVE: VITAL SIGNS: Afebrile, blood pressure 124/81, pulse 95, and respiratory rate 20. LUNGS: Bilateral breath sounds with rhonchi. HEART: Regular rhythm and rate. Normal S1 and S2. ABDOMEN: Soft. EXTREMITIES: Trace edema. IMPRESSION: 1. Chronic obstructive pulmonary disease exacerbation. 2. Hypoxia. 3. Metabolic alkalosis. 4. Urinary tract infection. 5. Hypertensive heart disease. 6. Paroxysmal atrial ectopy. 7. Degenerative valve disease. 8. Diastolic dysfunction. 9. Aortic stenosis. 10. Chronic diastolic congestive heart failure. PLAN: 1. Diamox to help stimulate respiratory drive by improving acid-based status. 2. Bronchodilators, respiratory hygiene. No antiarrhythmics at this time. 3. Diuresis based on clinical parameters, trend natriuretic peptide assay. Farhad Esparza M.D. DR: RASHID JOB#: [id number] CC:
[2016-12-08] MEDS: DuoNeb 0.5-3(2.5)mg/3ml neb HHN SCH ×6 (03:41→23:40)
[2016-12-08 04:00] VITALS: BP 132/66
[2016-12-08 07:09] LABS: MEAN CORPUSCULAR HEMOGLOBIN 31.7 PG (27.0-31.0); MEAN CORPUSCULAR HGB CONC 33.4 G/DL (32.0-36.0); MEAN CORPUSCULAR VOLUME 95 FL (80-99); MEAN PLATELET VOLUME 7.1 FL (6.5-10.1); PLATELET COUNT 165 K/UL (150-450); RED CELL DISTRIBUTION WIDTH 12.7 % (11.6-14.8); WHITE BLOOD COUNT 5.2 K/UL (4.8-10.8)
[2016-12-08 07:33] LABS: ALANINE AMINOTRANSFERASE 27 U/L (3-41); ALBUMIN/GLOBULIN RATIO 2.4 (1.0-2.7); ANION GAP 8 (5-15); ASPARTATE AMINO TRANSFERASE 16 U/L (5-40); CALCIUM 8.9 mg/dL (8.6-10.2); CARBON DIOXIDE 34 mEQ/L (20-30); CHLORIDE 100 mEQ/L (98-107); CREATININE 0.8 mg/dL (0.7-1.2); HEMOLYSIS 8; MAGNESIUM 2.5 mg/dL (1.7-2.5); POTASSIUM 4.2 mEQ/L (3.4-4.9); SODIUM 142 mEQ/L (135-145); TOTAL PROTEIN 5.1 g/dL (6.6-8.7)
[2016-12-08 07:46] VITALS: BP 130/82
--- NOTE | 2016-12-08 08:10 | Pulmonology Progress Note ---
Assessment/Plan Assessment/Plan PROBLEM LIST: 1. Chronic obstructive pulmonary disease with acute exacerbation. 2. Hypoxemic respiratory failure 3. Tracheobronchitis. 4. Urinary tract infection. 5. Benign prostatic hyperplasia 6. Hypertension. 7. Hyperlipidemia. 8. Aortic Stenosis 9. History of pancreatic insufficiency. 10. Grave's disease 11. CHF TREATMENT PLAN: 1. Optimize respiratory status and encourage cough 2. Continue Advair and ATC and p.r.n. DuoNebs. 3. Decrease solumedrol as able 4. Monitor congestion 5. Titrate down FiO2 to keep SaO2 > 90% 6. optimize cards status 7. PT and OT 8. on Diamox 9. Heparin subcutaneous for DVT prophylaxis. impression, plan, and exam edited and reviewed in detail care discussed with RN Subjective Allergies: Coded Allergies: No Known Allergies (Unverified , 09/26/12) Subjective reviewed care exam noted on oxygen no distress Objective Last 24 Hour Vital Signs Date Time Temp Pulse Resp B/P Pulse Ox O2 Delivery O2 Flow Rate FiO2 12/08/16 07:46 97.6 97 21 130/82 95 Nasal Cannula 2.0 12/08/16 07:38 90 18 96 Nasal Cannula 4.0 12/08/16 07:38 89 16 98 Nasal Cannula 4.0 12/08/16 07:38 Nasal Cannula 4.0 12/08/16 07:38 96 Nasal Cannula 4.0 12/08/16 05:50 95 132/66 12/08/16 04:00 97.7 95 20 132/66 95 Nasal Cannula 5.0 12/08/16 03:41 88 18 91 Nasal Cannula 4.0 12/08/16 03:30 92 18 99 Nasal Cannula 4.0 12/08/16 00:35 87 123/60 12/08/16 00:00 91.0 96 20 110/60 94 Room Air 5.0 12/07/16 23:22 87 18 99 Nasal Cannula 4.0 12/07/16 23:08 87 18 94 Nasal Cannula 4.0 12/07/16 20:00 98.2 96 20 123/60 91 Room Air 12/07/16 19:45 85 18 99 Nasal Cannula 5.0 12/07/16 19:38 84 18 Nasal Cannula 4.0 12/07/16 19:37 84 18 94 Nasal Cannula 4.0 12/07/16 19:35 Nasal Cannula 4.0 12/07/16 19:35 94 Nasal Cannula 4.0 12/07/16 17:58 100 131/58 12/07/16 16:00 98.1 100 21 131/58 97 Nasal Cannula 5.0 12/07/16 15:56 95 18 99 Nasal Cannula 5.0 12/07/16 15:44 93 18 97 Nasal Cannula 5.0 12/07/16 12:39 96 125/64 12/07/16 12:00 100 12/07/16 11:42 96 18 99 Nasal Cannula 5.0 12/07/16 11:33 90 18 97 Nasal Cannula 5.0 12/07/16 11:24 96.6 86 20 125/64 97 Nasal Cannula 6.0 Intake and Output 12/07/16 12/08/16 19:00 07:00 Intake Total 390 ml 240 ml Output Total 1000 ml 1000 ml Balance -610 ml -760 ml Intake Oral 390 ml 240 ml Output Urine Total 1000 ml 1000 ml # Voids 1 Objective WDWN advanced age NAD coarse breath sounds bilaterally with some rhonchi and wheeze [id number] with midsys murmur; no RG NABS nontender no HSM; no distention no CCE nonfocal; weak and slightly confused Laboratory Tests 12/08/16 04:35: White Blood Count 5.2, Red Blood Count 4.00L, Hemoglobin 12.7L, Hematocrit 38.0L , Mean Corpuscular Volume 95, Mean Corpuscular Hemoglobin 31.7H, Mean Corpuscular Hemoglobin Concent 33.4, Red Cell Distribution Width 12.7, Platelet Count 165, Mean Platelet Volume 7.1, Neutrophils (%) (Auto) , Lymphocytes (%) ( Auto) , Monocytes (%) (Auto) , Eosinophils (%) (Auto) , Basophils (%) (Auto) , Neutrophils % (Manual) [Pending], Lymphocytes % (Manual) [Pending], Platelet Estimate [Pending], Platelet Morphology [Pending], Sodium Level 142, Potassium Level 4.2, Chloride Level 100, Carbon Dioxide Level 34H, Anion Gap 8, Blood Urea Nitrogen 35H, Creatinine 0.8, Estimat Glomerular Filtration Rate , Glucose Level 151H, Calcium Level 8.9, Magnesium Level 2.5, Total Bilirubin 0.3, Aspartate Amino Transf (AST/SGOT) 16, Alanine Aminotransferase (ALT/SGPT) 27, Alkaline Phosphatase 47, Pro-B-Type Natriuretic Peptide 611H, Total Protein 5.1L , Albumin 3.6, Globulin 1.5, Albumin/Globulin Ratio 2.4 Current Medications Medications (Trade) Dose Ordered Sig/Larissa Route PRN Reason Start Time Stop Time Status Last Admin Dose Admin Acetaminophen (Tylenol) 650 mg Q4H PRN ORAL Mild Pain/Temp > 100.5 12/07/16 17:00 01/06/17 16:59 Acetazolamide (Diamox) 250 mg TWICE A DAY ORAL 12/07/16 18:00 01/06/17 17:59 12/07/16 17:58 Albuterol/ Ipratropium (DuoNeb 0.5-3(2.5)mg/3ml) 3 ml Q4H PRN HHN Shortness of Breath 12/07/16 17:00 12/12/16 16:59 Albuterol/ Ipratropium (DuoNeb 0.5-3(2.5)mg/3ml) 3 ml Q4HRT HHN 12/07/16 19:00 12/12/16 18:59 12/08/16 07:38 Alfuzosin HCl (Uroxatrol) 10 mg DAILY ORAL 12/08/16 09:00 01/07/17 08:59 Amylase/Lipase/ Protease (Pancrease) 2 ea THREE TIMES A DAY ORAL 12/07/16 18:00 01/06/17 17:59 12/07/16 17:59 Aspirin (Ecotrin) 81 mg DAILY ORAL 12/08/16 09:00 01/07/17 08:59 Atorvastatin Calcium (Lipitor) 10 mg BEDTIME ORAL 12/07/16 21:00 01/06/17 20:59 12/07/16 21:57 Ceftriaxone Sodium/Dextrose (Rocephin/D5W) 55 ml @ 110 mls/hr Q24H IVPB 12/08/16 00:00 12/15/16 00:00 12/08/16 00:34 Clonazepam (KlonoPIN) 1 mg Q6H PRN ORAL For Anxiety 12/07/16 17:00 12/14/16 16:59 Diltiazem HCl (Cardizem) 60 mg EVERY 6 HOURS ORAL 12/07/16 18:00 01/06/17 17:59 12/08/16 05:50 Escitalopram Oxalate (Lexapro) 20 mg DAILY ORAL 12/08/16 09:00 01/07/17 08:59 Finasteride (Proscar) 5 mg DAILY ORAL 12/08/16 09:00 01/07/17 08:59 Heparin Sodium (Porcine) (Heparin 5000 units/ml) 5,000 units EVERY 12 HOURS SUBQ 12/07/16 21:00 01/06/17 20:59 12/07/16 22:00 Lorazepam (Ativan) 0.5 mg Q8H PRN ORAL ANXIETY UNRELIEVED BY KLONOPIN 12/07/16 17:00 12/14/16 16:59 Magnesium Hydroxide (Mom) 30 ml QHS ORAL 12/07/16 21:00 01/06/17 20:59 12/07/16 21:57 Methylprednisolone Sodium Succinate (Solu-MEDROL) 30 mg Q12HR IVP 12/07/16 21:00 01/06/17 20:59 12/07/16 21:58 Montelukast Sodium (Singulair) 10 mg DAILY ORAL 12/08/16 09:00 01/07/17 08:59 Nicotine (Nicoderm) 1 patch DAILY TDERMAL 12/08/16 09:00 01/07/17 08:59 Nitroglycerin (Ntg) 0.4 mg Q5MIN X 3 DOSES PRN SL Prn Chest Pain 12/07/16 18:00 01/06/17 17:59 Propylthiouracil (Ptu) 50 mg TID ORAL 12/07/16 18:00 01/06/17 17:59 12/07/16 17:58 Ranitidine HCl (Zantac) 150 mg BEDTIME ORAL 12/07/16 21:00 01/06/17 20:59 12/07/16 21:58 Salmeterol Xinafoate/ Fluticasone (Advair 250/50 Diskus) 1 puffs BID INH 12/07/16 18:00 01/06/17 17:59 12/07/16 19:35 Tamsulosin HCl (Flomax) 0.8 mg QHS ORAL 12/07/16 21:00 01/06/17 20:59 12/07/16 21:58 Zolpidem Tartrate (Ambien) 5 mg QHS ORAL 12/07/16 21:00 01/06/17 20:59 12/07/16 21:58 TAVO SMITH Dec 08, 2016 08:10
--- NOTE | 2016-12-08 08:22 | General Progress Note ---
Assessment/Plan Problem List: (1) COPD exacerbation ICD Codes: J44.1 - Chronic obstructive pulmonary disease with (acute) exacerbation SNOMED: 754293469, [id number] (2) BPH (benign prostatic hypertrophy) with urinary obstruction ICD Codes: N40.1 - Benign prostatic hyperplasia with lower urinary tract symptoms; N13.8 - Other obstructive and reflux uropathy SNOMED: 016592608 (3) BPH (benign prostatic hypertrophy) with urinary retention ICD Codes: N40.1 - Benign prostatic hyperplasia with lower urinary tract symptoms; R33.8 - Other retention of urine SNOMED: 013133740, [id number] Status: stable, progressing Assessment/Plan iv steoids- wean pulm follow up resp rx wean fio2 iv abx monitor abg/cxr soler increase flomax stable. slow improvement Subjective ROS Limited/Unobtainable: No Constitutional: Reports: malaise, weakness HEENT: Reports: no symptoms Cardiovascular: Reports: no symptoms Respiratory: Reports: cough Gastrointestinal/Abdominal: Reports: no symptoms Genitourinary: Reports: no symptoms Neurologic/Psychiatric: Reports: no symptoms Endocrine: Reports: no symptoms Hematologic/Lymphatic: Reports: no symptoms Allergies: Coded Allergies: No Known Allergies (Unverified , 09/26/12) All Systems: reviewed and negative except above Subjective less sob. less congested. cant void. w/o complaints. overall states he feels better. Objective Last 24 Hour Vital Signs Date Time Temp Pulse Resp B/P Pulse Ox O2 Delivery O2 Flow Rate FiO2 12/08/16 07:46 97.6 97 21 130/82 95 Nasal Cannula 2.0 12/08/16 07:38 90 18 96 Nasal Cannula 4.0 12/08/16 07:38 89 16 98 Nasal Cannula 4.0 12/08/16 07:38 Nasal Cannula 4.0 12/08/16 07:38 96 Nasal Cannula 4.0 12/08/16 05:50 95 132/66 12/08/16 04:00 97.7 95 20 132/66 95 Nasal Cannula 5.0 12/08/16 03:41 88 18 91 Nasal Cannula 4.0 12/08/16 03:30 92 18 99 Nasal Cannula 4.0 12/08/16 00:35 87 123/60 12/08/16 00:00 91.0 96 20 110/60 94 Room Air 5.0 2/7/17 23:22 87 18 99 Nasal Cannula 4.0 12/07/16 23:08 87 18 94 Nasal Cannula 4.0 12/07/16 20:00 98.2 96 20 123/60 91 Room Air 12/07/16 19:45 85 18 99 Nasal Cannula 5.0 12/07/16 19:38 84 18 Nasal Cannula 4.0 12/07/16 19:37 84 18 94 Nasal Cannula 4.0 12/07/16 19:35 Nasal Cannula 4.0 12/07/16 19:35 94 Nasal Cannula 4.0 12/07/16 17:58 100 131/58 12/07/16 16:00 98.1 100 21 131/58 97 Nasal Cannula 5.0 12/07/16 15:56 95 18 99 Nasal Cannula 5.0 12/07/16 15:44 93 18 97 Nasal Cannula 5.0 12/07/16 12:39 96 125/64 12/07/16 12:00 100 12/07/16 11:42 96 18 99 Nasal Cannula 5.0 12/07/16 11:33 90 18 97 Nasal Cannula 5.0 12/07/16 11:24 96.6 86 20 125/64 97 Nasal Cannula 6.0 Intake and Output 12/07/16 12/08/16 19:00 07:00 Intake Total 390 ml 240 ml Output Total 1000 ml 1000 ml Balance -610 ml -760 ml Intake Oral 390 ml 240 ml Output Urine Total 1000 ml 1000 ml # Voids 1 Laboratory Tests 12/08/16 04:35: White Blood Count 5.2, Red Blood Count 4.00L, Hemoglobin 12.7L, Hematocrit 38.0L , Mean Corpuscular Volume 95, Mean Corpuscular Hemoglobin 31.7H, Mean Corpuscular Hemoglobin Concent 33.4, Red Cell Distribution Width 12.7, Platelet Count 165, Mean Platelet Volume 7.1, Neutrophils (%) (Auto) , Lymphocytes (%) ( Auto) , Monocytes (%) (Auto) , Eosinophils (%) (Auto) , Basophils (%) (Auto) , Neutrophils % (Manual) [Pending], Lymphocytes % (Manual) [Pending], Platelet Estimate [Pending], Platelet Morphology [Pending], Sodium Level 142, Potassium Level 4.2, Chloride Level 100, Carbon Dioxide Level 34H, Anion Gap 8, Blood Urea Nitrogen 35H, Creatinine 0.8, Estimat Glomerular Filtration Rate , Glucose Level 151H, Calcium Level 8.9, Magnesium Level 2.5, Total Bilirubin 0.3, Aspartate Amino Transf (AST/SGOT) 16, Alanine Aminotransferase (ALT/SGPT) 27, Alkaline Phosphatase 47, Pro-B-Type Natriuretic Peptide 611H, Total Protein 5.1L , Albumin 3.6, Globulin 1.5, Albumin/Globulin Ratio 2.4 Height (Feet): 5 Height (Inches): 9.00 Weight (Pounds): 130 Objective General Appearance: WD/WN, alert Neck: supple Cardiovascular: normal rate, regular rhythm Respiratory/Chest: minimal wheezing. improved air movement Abdomen: normal bowel sounds, non tender, soft, no organomegaly Edema: no edema noted Arm (L), no edema noted Arm (R), no edema noted Leg (L), no edema noted Leg (R), no edema noted Pedal (L), no edema noted Pedal (R), no edema noted Generalized CRYSTAL FOSTER Dec 08, 2016 08:22
--- NOTE | 2016-12-08 08:46 | Cardiology Report ---
APPROVED REPORT EXAM: Two-dimensional and M-mode echocardiogram with Doppler and color Doppler. INDICATION Congestive Heart Failure M-Mode DIMENSIONS IVSd.9 (0.7-1.1cm)Left Atrium (MM)2.9 (1.6-4.0cm) LVDd5.0 (3.5-5.6cm)Aortic Root2.4 (2.0-3.7cm) PWd.9 (0.7-1.1cm)Aortic Cusp Exc..7 (1.5-2.0cm) LVDs2.9 (2.5-4.0cm) PWs1.7 cm Technically difficult study due to poor acoustic windows. Study quality precludes accurate assessment of regional wall motion. Normal left ventricular chamber size, systolic function and wall motion. Left ventricular ejection fraction estimated to be 50-55 %. No evidence of ventricular hypertrophy. Anterior Echo-free space, may be due to pericardial fat or effusion. No evidence of pericardial effusion. All other cardiac chamber sizes are within normal limits. Aortic valve calcification with decreased cusp excursion. Mildly thickened mitral valve leaflets with normal excursion. Moderate mitral annulus and aortic root calcification. Pulmonic valve not well visualized. Normal tricuspid valve structure. IVC dilated at 2.1cm with minimal physiologic collapse. A color flow and spectral Doppler study was performed and revealed: Trace aortic regurgitation. Peak aortic valve gradient of 57 mmHg and a mean of 21 mmHg. Aortic valve area 1.3 cm2 calculated by continuity equation consistent with mild aortic stenosis. Trace mitral regurgitation. Mitral diastolic velocities suggest reduced left ventricular relaxation (Grade I). Trace tricuspid regurgitation. Tricuspid systolic velocities suggests peak right ventricular systolic pressure of 32 mmHg. Trace pulmonic regurgitation present.
[2016-12-08] MEDS: Aspirin EC 81mg tab ORAL SCH (08:59)
[2016-12-08] MEDS: Propylthiouracil 50mg tab ORAL SCH ×3 (08:59→18:29)
[2016-12-08] MEDS: Montelukast 10mg tablet ORAL SCH (09:00)
[2016-12-08] MEDS ORDERED: Nitroglycerin Subl 0.4mg tab (Bottle Of 25) SL PRN (09:00)
[2016-12-08] MEDS: Pancrease Cap ORAL SCH ×3 (09:02→18:30)
[2016-12-08] MEDS: Heparin 5000 units/ml inj SUBQ SCH ×2 (09:05→22:44)
[2016-12-08] MEDS: Advair 250/50 Inhaler - 14 dose INH SCH ×2 (09:20→19:10)
[2016-12-08] MEDS: Solu-MEDROL 40mg Inj IVP SCH ×2 (10:05→22:41)
[2016-12-08 10:23] LABS: BAND NEUTROPHILS % (MANUAL) 0 % (0-8); BASOPHILS % (MANUAL) 0 % (0-2); EOSINOPHILS % (MANUAL) 0 % (0-3); HYPOCHROMASIA 1+; LYMPHOCYTES % (MANUAL) 8 % (20-45); NEUTROPHILS % (MANUAL) 87 % (45-75); PLATELET ESTIMATE ADEQUATE; PLATELET MORPHOLOGY NORMAL; TOTAL CELLS COUNTED 100
[2016-12-08 11:22] VITALS: BP 139/75
--- NOTE | 2016-12-08 11:23 | Urology Progress Note ---
Assessment/Plan Assessment/Plan 1. Urinary retention. 2. Benign prostatic hypertrophy. 3. Possible neurogenic bladder. 4. Pyuria. 5. Proteinuria. 6. Possible chronic prostatitis. soler indwelling cont with flomax, uroxatral and proscar abx as ordered voiding trial later Subjective Allergies: Coded Allergies: No Known Allergies (Unverified , 09/26/12) Subjective all noted Objective Last 24 Hour Vital Signs Date Time Temp Pulse Resp B/P Pulse Ox O2 Delivery O2 Flow Rate FiO2 12/08/16 11:16 87 18 96 Nasal Cannula 4.0 12/08/16 07:46 97.6 97 21 130/82 95 Nasal Cannula 2.0 12/08/16 07:38 90 18 96 Nasal Cannula 4.0 12/08/16 07:38 89 16 98 Nasal Cannula 4.0 12/08/16 07:38 Nasal Cannula 4.0 12/08/16 07:38 96 Nasal Cannula 4.0 12/08/16 05:50 95 132/66 12/08/16 04:00 97.7 95 20 132/66 95 Nasal Cannula 5.0 12/08/16 03:41 88 18 91 Nasal Cannula 4.0 12/08/16 03:30 92 18 99 Nasal Cannula 4.0 12/08/16 00:35 87 123/60 12/08/16 00:00 91.0 96 20 110/60 94 Room Air 5.0 12/07/16 23:22 87 18 99 Nasal Cannula 4.0 12/07/16 23:08 87 18 94 Nasal Cannula 4.0 12/07/16 20:00 98.2 96 20 123/60 91 Room Air 12/07/16 19:45 85 18 99 Nasal Cannula 5.0 12/07/16 19:38 84 18 Nasal Cannula 4.0 12/07/16 19:37 84 18 94 Nasal Cannula 4.0 12/07/16 19:35 Nasal Cannula 4.0 12/07/16 19:35 94 Nasal Cannula 4.0 12/07/16 17:58 100 131/58 12/07/16 16:00 98.1 100 21 131/58 97 Nasal Cannula 5.0 12/07/16 15:56 95 18 99 Nasal Cannula 5.0 12/07/16 15:44 93 18 97 Nasal Cannula 5.0 12/07/16 12:39 96 125/64 12/07/16 12:00 100 12/07/16 11:42 96 18 99 Nasal Cannula 5.0 12/07/16 11:33 90 18 97 Nasal Cannula 5.0 12/07/16 11:24 96.6 86 20 125/64 97 Nasal Cannula 6.0 Intake and Output 12/07/16 12/08/16 19:00 07:00 Intake Total 390 ml 240 ml Output Total 1000 ml 1000 ml Balance -610 ml -760 ml Intake Oral 390 ml 240 ml Output Urine Total 1000 ml 1000 ml # Voids 1 Microbiology Date/Time Source Procedure Growth Status 12/02/16 20:55 Blood Blood Culture - Final NO GROWTH AFTER 5 DAYS Complete 12/03/16 04:10 Nasal Nares Influenza Types A,B Antigen (MEET) - Final Complete Current Medications Medications (Trade) Dose Ordered Sig/Larissa Route PRN Reason Start Time Stop Time Status Last Admin Dose Admin Acetaminophen (Tylenol) 650 mg Q4H PRN ORAL Mild Pain/Temp > 100.5 12/07/16 17:00 01/06/17 16:59 Acetazolamide (Diamox) 250 mg TWICE A DAY ORAL 12/07/16 18:00 01/06/17 17:59 12/08/16 08:59 Albuterol/ Ipratropium (DuoNeb 0.5-3(2.5)mg/3ml) 3 ml Q4H PRN N Shortness of Breath 12/07/16 17:00 12/12/16 16:59 Albuterol/ Ipratropium (DuoNeb 0.5-3(2.5)mg/3ml) 3 ml Q4HRT HHN 12/07/16 19:00 12/12/16 18:59 12/08/16 07:38 Alfuzosin HCl (Uroxatrol) 10 mg DAILY ORAL 12/08/16 09:00 01/07/17 08:59 12/08/16 10:05 Amylase/Lipase/ Protease (Pancrease) 2 ea THREE TIMES A DAY ORAL 12/07/16 18:00 01/06/17 17:59 12/08/16 09:02 Aspirin (Ecotrin) 81 mg DAILY ORAL 12/08/16 09:00 01/07/17 08:59 12/08/16 08:59 Atorvastatin Calcium (Lipitor) 10 mg BEDTIME ORAL 12/07/16 21:00 01/06/17 20:59 12/07/16 21:57 Ceftriaxone Sodium/Dextrose (Rocephin/D5W) 55 ml @ 110 mls/hr Q24H IVPB 12/08/16 00:00 12/15/16 00:00 12/08/16 00:34 Clonazepam (KlonoPIN) 1 mg Q6H PRN ORAL For Anxiety 12/07/16 17:00 12/14/16 16:59 Diltiazem HCl (Cardizem) 60 mg EVERY 6 HOURS ORAL 12/07/16 18:00 01/06/17 17:59 12/08/16 05:50 Escitalopram Oxalate (Lexapro) 20 mg DAILY ORAL 12/08/16 09:00 01/07/17 08:59 12/08/16 08:59 Finasteride (Proscar) 5 mg DAILY ORAL 12/08/16 09:00 01/07/17 08:59 12/08/16 09:00 Heparin Sodium (Porcine) (Heparin 5000 units/ml) 5,000 units EVERY 12 HOURS SUBQ 12/07/16 21:00 01/06/17 20:59 12/08/16 09:05 Lorazepam (Ativan) 0.5 mg Q8H PRN ORAL ANXIETY UNRELIEVED BY KLONOPIN 12/07/16 17:00 12/14/16 16:59 Magnesium Hydroxide (Mom) 30 ml QHS ORAL 12/07/16 21:00 01/06/17 20:59 12/07/16 21:57 Methylprednisolone Sodium Succinate (Solu-MEDROL) 30 mg Q12HR IVP 12/07/16 21:00 01/06/17 20:59 12/08/16 10:05 Montelukast Sodium (Singulair) 10 mg DAILY ORAL 12/08/16 09:00 01/07/17 08:59 12/08/16 09:00 Nicotine (Nicoderm) 1 patch DAILY TDERMAL 12/08/16 09:00 01/07/17 08:59 12/08/16 09:01 Nitroglycerin (Ntg) 0.4 mg Q5MIN X 3 DOSES PRN SL Prn Chest Pain 12/07/16 18:00 01/06/17 17:59 Propylthiouracil (Ptu) 50 mg TID ORAL 12/07/16 18:00 01/06/17 17:59 12/08/16 08:59 Ranitidine HCl (Zantac) 150 mg BEDTIME ORAL 12/07/16 21:00 01/06/17 20:59 12/07/16 21:58 Salmeterol Xinafoate/ Fluticasone (Advair 250/50 Diskus) 1 puffs BID INH 12/07/16 18:00 01/06/17 17:59 12/08/16 09:20 Tamsulosin HCl (Flomax) 0.8 mg QHS ORAL 12/07/16 21:00 01/06/17 20:59 12/07/16 21:58 Zolpidem Tartrate (Ambien) 5 mg QHS ORAL 12/07/16 21:00 01/06/17 20:59 12/07/16 21:58 Laboratory Tests 12/08/16 04:35: White Blood Count 5.2, Red Blood Count 4.00L, Hemoglobin 12.7L, Hematocrit 38.0L , Mean Corpuscular Volume 95, Mean Corpuscular Hemoglobin 31.7H, Mean Corpuscular Hemoglobin Concent 33.4, Red Cell Distribution Width 12.7, Platelet Count 165, Mean Platelet Volume 7.1, Neutrophils (%) (Auto) , Lymphocytes (%) ( Auto) , Monocytes (%) (Auto) , Eosinophils (%) (Auto) , Basophils (%) (Auto) , Differential Total Cells Counted 100, Neutrophils % (Manual) 87H, Lymphocytes % (Manual) 8L, Monocytes % (Manual) 5, Eosinophils % (Manual) 0, Basophils % ( Manual) 0, Band Neutrophils 0, Platelet Estimate Adequate, Platelet Morphology Normal, Hypochromasia 1+, Sodium Level 142, Potassium Level 4.2, Chloride Level 100, Carbon Dioxide Level 34H, Anion Gap 8, Blood Urea Nitrogen 35H, Creatinine 0.8, Estimat Glomerular Filtration Rate , Glucose Level 151H, Calcium Level 8.9 , Magnesium Level 2.5, Total Bilirubin 0.3, Aspartate Amino Transf (AST/SGOT) 16 , Alanine Aminotransferase (ALT/SGPT) 27, Alkaline Phosphatase 47, Pro-B-Type Natriuretic Peptide 611H, Total Protein 5.1L, Albumin 3.6, Globulin 1.5, Albumin /Globulin Ratio 2.4 Height (Feet): 5 Height (Inches): 9.00 Weight (Pounds): 130 Objective exam stable RADHA CASTELLANO Dec 08, 2016 11:23
[2016-12-08 16:00] VITALS: BP 127/67
--- NOTE | 2016-12-08 16:17 | Diagnostic Imaging Report ---
APPROVED REPORT CPT Code: 11310 Present Symptoms Shortness of breath BILATERAL: Imaging reveals a patent deep venous system bilaterally. There is no evidence of thrombus within the femoral, popliteal or tibial segments. The greater saphenous veins are also within normal limits. Doppler indicates normal spontaneous flow within these segments.
[2016-12-08 20:00] VITALS: BP 137/96
[2016-12-08] MEDS: Milk of Magnesia 30ml Ud ORAL SCH (22:40)
[2016-12-08] MEDS: Tamsulosin 0.4mg cap ORAL SCH (22:40)
[2016-12-08] MEDS: Zolpidem 5mg tab ORAL SCH (22:40)
[2016-12-09] VITALS: BP 126/77
[2016-12-09] MEDS: cefTRIAXone 1 GM in D5W 55 ML IVPB SCH (01:03)
[2016-12-09] MEDS: DuoNeb 0.5-3(2.5)mg/3ml neb HHN SCH ×4 (03:00→15:45)
--- NOTE | 2016-12-09 03:18 | Progress Note ---
DATE: 12/02/2016 CARDIOLOGY PROGRESS NOTE: SUBJECTIVE: The patient has congestion and shortness of breath persists, but slowly improving. He continues to have high oxygen requirements. He has difficulty voiding. OBJECTIVE: VITAL SIGNS: Blood pressure 130/80, heart rate 97, and respiratory rate 20, monitor sinus tachycardia with rare atrial ectopics. LUNGS: Bilateral breath sounds. Rhonchi. Few wheezes. HEART: Regular rhythm and rate. Normal S1 and S2. ABDOMEN: Soft. No edema. GENITOURINARY: Hatch catheter in place. LABORATORY DATA: White count 5.2, hemoglobin 12.7. Potassium 4.2, sodium 142, bicarbonate 34, BUN 35, and creatinine 0.8. Pro-natriuretic peptide is down to 611. IMPRESSION: 1. Chronic obstructive pulmonary disease exacerbation. 2. Acute on chronic diastolic congestive heart failure, significantly improved. 3. Contraction alkalosis. 4. Prostatic hypertrophy with urinary retention. 5. Paroxysmal atrial ectopy/tachyarrhythmias. PLAN: Hatch catheter. No diuretics at this time. Continue diltiazem. No role for digoxin. Taper steroids per extraction machine operator. Farhad Esparza M.D. DR: Esther JOB#: [id number] CC:
[2016-12-09 04:00] VITALS: BP 125/60
[2016-12-09 07:49] VITALS: BP 96/64
[2016-12-09] MEDS: Propylthiouracil 50mg tab ORAL SCH ×2 (08:00→12:01)
[2016-12-09] MEDS: Aspirin EC 81mg tab ORAL SCH (08:01)
[2016-12-09] MEDS: Montelukast 10mg tablet ORAL SCH (08:01)
[2016-12-09] MEDS: Pancrease Cap ORAL SCH ×2 (08:02→15:08)
[2016-12-09] MEDS: Solu-MEDROL 40mg Inj IVP SCH (08:08)
[2016-12-09] MEDS: Heparin 5000 units/ml inj SUBQ SCH (08:09)
--- NOTE | 2016-12-09 08:44 | General Progress Note ---
Assessment/Plan Problem List: (1) COPD exacerbation ICD Codes: J44.1 - Chronic obstructive pulmonary disease with (acute) exacerbation SNOMED: 476139172, 198586298 (2) BPH (benign prostatic hypertrophy) with urinary obstruction ICD Codes: N40.1 - Benign prostatic hyperplasia with lower urinary tract symptoms; N13.8 - Other obstructive and reflux uropathy SNOMED: 211234564 (3) BPH (benign prostatic hypertrophy) with urinary retention ICD Codes: N40.1 - Benign prostatic hyperplasia with lower urinary tract symptoms; R33.8 - Other retention of urine SNOMED: 957101006, [id number] Status: stable, progressing Assessment/Plan iv steoids- wean pulm follow up resp rx wean fio2 iv abx monitor abg/cxr soler increase flomax voiding trial tomorrrow pt/ot eval ?dc planning tomorrow if able to void and cleared by pt/ot stable. slow improvement Subjective ROS Limited/Unobtainable: No Constitutional: Reports: malaise, weakness HEENT: Reports: no symptoms Cardiovascular: Reports: no symptoms Respiratory: Reports: cough, shortness of breath, wheezing Gastrointestinal/Abdominal: Reports: no symptoms Genitourinary: Reports: other - urinary retention Neurologic/Psychiatric: Reports: no symptoms Endocrine: Reports: no symptoms Hematologic/Lymphatic: Reports: no symptoms Allergies: Coded Allergies: No Known Allergies (Unverified , 09/26/12) All Systems: reviewed and negative except above Subjective less sob. less congested. cant void. still with soler catheter. w/o complaints. overall states he feels better. Objective Last 24 Hour Vital Signs Date Time Temp Pulse Resp B/P Pulse Ox O2 Delivery O2 Flow Rate FiO2 12/09/16 07:49 98.6 77 16 96/64 93 Nasal Cannula 12/09/16 05:23 80 125/60 12/09/16 04:00 96.8 80 17 125/60 94 Nasal Cannula 2.0 12/09/16 03:46 Nasal Cannula 4.0 12/09/16 03:43 Nasal Cannula 4.0 12/09/16 01:03 83 137/96 12/09/16 00:00 98.0 90 18 126/77 94 Room Air 12/08/16 23:50 83 16 98 Nasal Cannula 4.0 12/08/16 23:40 79 18 94 Nasal Cannula 4.0 12/08/16 20:00 97.4 82 18 137/96 94 Room Air 12/08/16 19:18 Nasal Cannula 4.0 12/08/16 19:17 Nasal Cannula 4.0 12/08/16 19:17 95 Nasal Cannula 4.0 12/08/16 19:17 Nasal Cannula 4.0 12/08/16 18:30 88 139/75 12/08/16 16:00 96.9 84 16 127/67 93 Room Air 12/08/16 15:05 88 18 95 Nasal Cannula 4.0 12/08/16 11:58 95 139/75 12/08/16 11:22 97.8 95 20 139/75 93 Nasal Cannula 4.0 12/08/16 11:16 87 18 96 Nasal Cannula 4.0 Intake and Output 12/08/16 12/09/16 19:00 07:00 Intake Total 320 ml 380 ml Output Total 400 ml 650 ml Balance -80 ml -270 ml Intake Oral 320 ml 380 ml Output Urine Total 400 ml 650 ml Height (Feet): 5 Height (Inches): 9.00 Weight (Pounds): 130 Objective General Appearance: WD/WN, alert Neck: supple Cardiovascular: normal rate, regular rhythm Respiratory/Chest: minimal wheezing. improved air movement Abdomen: normal bowel sounds, non tender, soft, no organomegaly Edema: no edema noted Arm (L), no edema noted Arm (R), no edema noted Leg (L), no edema noted Leg (R), no edema noted Pedal (L), no edema noted Pedal (R), no edema noted Generalized CRYSTAL FOSTER Dec 09, 2016 08:44
[2016-12-09] MEDS: Advair 250/50 Inhaler - 14 dose INH SCH (08:55)
--- NOTE | 2016-12-09 08:59 | Pulmonology Progress Note ---
Assessment/Plan Assessment/Plan PROBLEM LIST: 1. Chronic obstructive pulmonary disease with acute exacerbation. 2. Hypoxemic respiratory failure 3. Tracheobronchitis. 4. Urinary tract infection. 5. Benign prostatic hyperplasia 6. Hypertension. 7. Hyperlipidemia. 8. Aortic Stenosis 9. History of pancreatic insufficiency. 10. Grave's disease 11. CHF TREATMENT PLAN: 1. dc today on medrol james and levaquin 2. Continue Advair and ATC and p.r.n. DuoNebs. 3. dc solumedrol 4. Monitor congestion 5. on home oxygen 6. optimize cards status 7. PT and OT 8. on Diamox; ? use at home 9. home health on discharge impression, plan, and exam edited and reviewed in detail care discussed with RN Subjective Allergies: Coded Allergies: No Known Allergies (Unverified , 09/26/12) Subjective reviewed care exam noted on oxygen no distress family and patient want him home Objective Last 24 Hour Vital Signs Date Time Temp Pulse Resp B/P Pulse Ox O2 Delivery O2 Flow Rate FiO2 12/09/16 07:49 98.6 77 16 96/64 93 Nasal Cannula 12/09/16 05:23 80 125/60 12/09/16 04:00 96.8 80 17 125/60 94 Nasal Cannula 2.0 12/09/16 03:46 Nasal Cannula 4.0 12/09/16 03:43 Nasal Cannula 4.0 12/09/16 01:03 83 137/96 12/09/16 00:00 98.0 90 18 126/77 94 Room Air 12/08/16 23:50 83 16 98 Nasal Cannula 4.0 12/08/16 23:40 79 18 94 Nasal Cannula 4.0 12/08/16 20:00 97.4 82 18 137/96 94 Room Air 12/08/16 19:18 Nasal Cannula 4.0 12/08/16 19:17 Nasal Cannula 4.0 12/08/16 19:17 95 Nasal Cannula 4.0 12/08/16 19:17 Nasal Cannula 4.0 12/08/16 18:30 88 139/75 12/08/16 16:00 96.9 84 16 127/67 93 Room Air 12/08/16 15:05 88 18 95 Nasal Cannula 4.0 12/08/16 11:58 95 139/75 12/08/16 11:22 97.8 95 20 139/75 93 Nasal Cannula 4.0 12/08/16 11:16 87 18 96 Nasal Cannula 4.0 Intake and Output 12/08/16 12/09/16 19:00 07:00 Intake Total 320 ml 380 ml Output Total 400 ml 650 ml Balance -80 ml -270 ml Intake Oral 320 ml 380 ml Output Urine Total 400 ml 650 ml Objective WDWN advanced age NAD coarse breath sounds bilaterally with some rhonchi and wheeze [id number] with midsys murmur; no RG NABS nontender no HSM; no distention no CCE nonfocal; weak and slightly confused Current Medications Medications (Trade) Dose Ordered Sig/Larissa Route PRN Reason Start Time Stop Time Status Last Admin Dose Admin Acetaminophen (Tylenol) 650 mg Q4H PRN ORAL Mild Pain/Temp > 100.5 12/07/16 17:00 01/06/17 16:59 Acetazolamide (Diamox) 250 mg TWICE A DAY ORAL 12/07/16 18:00 01/06/17 17:59 12/09/16 08:01 Albuterol/ Ipratropium (DuoNeb 0.5-3(2.5)mg/3ml) 3 ml Q4H PRN HHN Shortness of Breath 12/07/16 17:00 12/12/16 16:59 Albuterol/ Ipratropium (DuoNeb 0.5-3(2.5)mg/3ml) 3 ml Q4HRT HHN 12/07/16 19:00 12/12/16 18:59 12/08/16 23:40 Alfuzosin HCl (Uroxatrol) 10 mg DAILY ORAL 12/08/16 09:00 01/07/17 08:59 12/09/16 08:01 Amylase/Lipase/ Protease (Pancrease) 2 ea THREE TIMES A DAY ORAL 12/07/16 18:00 01/06/17 17:59 12/09/16 08:02 Aspirin (Ecotrin) 81 mg DAILY ORAL 12/08/16 09:00 01/07/17 08:59 12/09/16 08:01 Atorvastatin Calcium (Lipitor) 10 mg BEDTIME ORAL 12/07/16 21:00 01/06/17 20:59 12/08/16 22:40 Ceftriaxone Sodium/Dextrose (Rocephin/D5W) 55 ml @ 110 mls/hr Q24H IVPB 12/08/16 00:00 12/15/16 00:00 12/09/16 01:03 Clonazepam (KlonoPIN) 1 mg Q6H PRN ORAL For Anxiety 12/07/16 17:00 12/14/16 16:59 Diltiazem HCl (Cardizem) 60 mg EVERY 6 HOURS ORAL 12/07/16 18:00 01/06/17 17:59 12/09/16 05:23 Escitalopram Oxalate (Lexapro) 20 mg DAILY ORAL 12/08/16 09:00 01/07/17 08:59 12/09/16 08:01 Finasteride (Proscar) 5 mg DAILY ORAL 12/08/16 09:00 01/07/17 08:59 12/09/16 08:01 Heparin Sodium (Porcine) (Heparin 5000 units/ml) 5,000 units EVERY 12 HOURS SUBQ 12/07/16 21:00 01/06/17 20:59 12/09/16 08:09 Lorazepam (Ativan) 0.5 mg Q8H PRN ORAL ANXIETY UNRELIEVED BY KLONOPIN 12/07/16 17:00 12/14/16 16:59 Magnesium Hydroxide (Mom) 30 ml QHS ORAL 12/07/16 21:00 01/06/17 20:59 12/08/16 22:40 Methylprednisolone Sodium Succinate (Solu-MEDROL) 30 mg Q12HR IVP 12/07/16 21:00 01/06/17 20:59 12/09/16 08:08 Montelukast Sodium (Singulair) 10 mg DAILY ORAL 12/08/16 09:00 01/07/17 08:59 12/09/16 08:01 Nicotine (Nicoderm) 1 patch DAILY TDERMAL 12/08/16 09:00 01/07/17 08:59 12/09/16 08:01 Nitroglycerin (Ntg) 0.4 mg Q5MIN X 3 DOSES PRN SL Prn Chest Pain 12/07/16 18:00 01/06/17 17:59 Propylthiouracil (Ptu) 50 mg TID ORAL 12/07/16 18:00 01/06/17 17:59 12/09/16 08:00 Ranitidine HCl (Zantac) 150 mg BEDTIME ORAL 12/07/16 21:00 01/06/17 20:59 12/08/16 22:40 Salmeterol Xinafoate/ Fluticasone (Advair 250/50 Diskus) 1 puffs BID INH 12/07/16 18:00 01/06/17 17:59 12/08/16 19:10 Tamsulosin HCl (Flomax) 0.8 mg QHS ORAL 12/07/16 21:00 01/06/17 20:59 12/08/16 22:40 Zolpidem Tartrate (Ambien) 5 mg QHS ORAL 12/07/16 21:00 01/06/17 20:59 12/08/16 22:40 TAVO SMITH Dec 09, 2016 08:59
--- NOTE | 2016-12-09 09:35 | Urology Progress Note ---
Assessment/Plan Assessment/Plan 1. Urinary retention. 2. Benign prostatic hypertrophy. 3. Possible neurogenic bladder. 4. Pyuria. 5. Proteinuria. 6. Possible chronic prostatitis. soler indwelling cont with flomax, uroxatral and proscar abx as ordered voiding trial tomorrw d/w Dr. Arevalo Subjective Allergies: Coded Allergies: No Known Allergies (Unverified , 09/26/12) Subjective all noted Objective Last 24 Hour Vital Signs Date Time Temp Pulse Resp B/P Pulse Ox O2 Delivery O2 Flow Rate FiO2 12/09/16 09:05 82 16 96 Nasal Cannula 4.0 12/09/16 08:55 80 18 95 Nasal Cannula 4.0 12/09/16 08:55 Nasal Cannula 4.0 12/09/16 08:55 95 Nasal Cannula 4.0 12/09/16 07:49 98.6 77 16 96/64 93 Nasal Cannula 12/09/16 05:23 80 125/60 12/09/16 04:00 96.8 80 17 125/60 94 Nasal Cannula 2.0 12/09/16 03:46 Nasal Cannula 4.0 12/09/16 03:43 Nasal Cannula 4.0 12/09/16 01:03 83 137/96 12/09/16 00:00 98.0 90 18 126/77 94 Room Air 12/08/16 23:50 83 16 98 Nasal Cannula 4.0 12/08/16 23:40 79 18 94 Nasal Cannula 4.0 12/08/16 20:00 97.4 82 18 137/96 94 Room Air 12/08/16 19:18 Nasal Cannula 4.0 12/08/16 19:17 Nasal Cannula 4.0 12/08/16 19:17 95 Nasal Cannula 4.0 12/08/16 19:17 Nasal Cannula 4.0 12/08/16 18:30 88 139/75 12/08/16 16:00 96.9 84 16 127/67 93 Room Air 12/08/16 15:05 88 18 95 Nasal Cannula 4.0 12/08/16 11:58 95 139/75 12/08/16 11:22 97.8 95 20 139/75 93 Nasal Cannula 4.0 12/08/16 11:16 87 18 96 Nasal Cannula 4.0 Intake and Output 12/08/16 12/09/16 19:00 07:00 Intake Total 320 ml 380 ml Output Total 400 ml 650 ml Balance -80 ml -270 ml Intake Oral 320 ml 380 ml Output Urine Total 400 ml 650 ml Microbiology Date/Time Source Procedure Growth Status 12/02/16 20:55 Blood Blood Culture - Final NO GROWTH AFTER 5 DAYS Complete 12/03/16 04:10 Nasal Nares Influenza Types A,B Antigen (MEET) - Final Complete Current Medications Medications (Trade) Dose Ordered Sig/Larissa Route PRN Reason Start Time Stop Time Status Last Admin Dose Admin Acetaminophen (Tylenol) 650 mg Q4H PRN ORAL Mild Pain/Temp > 100.5 12/07/16 17:00 01/06/17 16:59 Acetazolamide (Diamox) 250 mg TWICE A DAY ORAL 12/07/16 18:00 01/06/17 17:59 12/09/16 08:01 Albuterol/ Ipratropium (DuoNeb 0.5-3(2.5)mg/3ml) 3 ml Q4H PRN HHN Shortness of Breath 12/07/16 17:00 12/12/16 16:59 Albuterol/ Ipratropium (DuoNeb 0.5-3(2.5)mg/3ml) 3 ml Q4HRT HHN 12/07/16 19:00 12/12/16 18:59 12/09/16 08:55 Alfuzosin HCl (Uroxatrol) 10 mg DAILY ORAL 12/08/16 09:00 01/07/17 08:59 12/09/16 08:01 Amylase/Lipase/ Protease (Pancrease) 2 ea THREE TIMES A DAY ORAL 12/07/16 18:00 01/06/17 17:59 12/09/16 08:02 Aspirin (Ecotrin) 81 mg DAILY ORAL 12/08/16 09:00 01/07/17 08:59 12/09/16 08:01 Atorvastatin Calcium (Lipitor) 10 mg BEDTIME ORAL 12/07/16 21:00 01/06/17 20:59 12/08/16 22:40 Ceftriaxone Sodium/Dextrose (Rocephin/D5W) 55 ml @ 110 mls/hr Q24H IVPB 12/08/16 00:00 12/15/16 00:00 12/09/16 01:03 Clonazepam (KlonoPIN) 1 mg Q6H PRN ORAL For Anxiety 12/07/16 17:00 12/14/16 16:59 Diltiazem HCl (Cardizem) 60 mg EVERY 6 HOURS ORAL 12/07/16 18:00 01/06/17 17:59 12/09/16 05:23 Escitalopram Oxalate (Lexapro) 20 mg DAILY ORAL 12/08/16 09:00 01/07/17 08:59 12/09/16 08:01 Finasteride (Proscar) 5 mg DAILY ORAL 12/08/16 09:00 01/07/17 08:59 12/09/16 08:01 Heparin Sodium (Porcine) (Heparin 5000 units/ml) 5,000 units EVERY 12 HOURS SUBQ 12/07/16 21:00 01/06/17 20:59 12/09/16 08:09 Lorazepam (Ativan) 0.5 mg Q8H PRN ORAL ANXIETY UNRELIEVED BY KLONOPIN 12/07/16 17:00 12/14/16 16:59 Magnesium Hydroxide (Mom) 30 ml QHS ORAL 12/07/16 21:00 01/06/17 20:59 12/08/16 22:40 Methylprednisolone Sodium Succinate (Solu-MEDROL) 30 mg Q12HR IVP 12/07/16 21:00 01/06/17 20:59 12/09/16 08:08 Montelukast Sodium (Singulair) 10 mg DAILY ORAL 12/08/16 09:00 01/07/17 08:59 12/09/16 08:01 Nicotine (Nicoderm) 1 patch DAILY TDERMAL 12/08/16 09:00 01/07/17 08:59 12/09/16 08:01 Nitroglycerin (Ntg) 0.4 mg Q5MIN X 3 DOSES PRN SL Prn Chest Pain 12/07/16 18:00 01/06/17 17:59 Propylthiouracil (Ptu) 50 mg TID ORAL 12/07/16 18:00 01/06/17 17:59 12/09/16 08:00 Ranitidine HCl (Zantac) 150 mg BEDTIME ORAL 12/07/16 21:00 01/06/17 20:59 12/08/16 22:40 Salmeterol Xinafoate/ Fluticasone (Advair 250/50 Diskus) 1 puffs BID INH 12/07/16 18:00 01/06/17 17:59 12/09/16 08:55 Tamsulosin HCl (Flomax) 0.8 mg QHS ORAL 12/07/16 21:00 01/06/17 20:59 12/08/16 22:40 Zolpidem Tartrate (Ambien) 5 mg QHS ORAL 12/07/16 21:00 01/06/17 20:59 12/08/16 22:40 Height (Feet): 5 Height (Inches): 9.00 Weight (Pounds): 130 Objective exam stable RADHA CASTELLANO Dec 09, 2016 09:35
[2016-12-09 11:16] VITALS: BP 125/69
[2016-12-09] MEDS ORDERED: LEVAQUIN500 MG ORAL (13:33)
[2016-12-09] MEDS ORDERED: Tubing IV Secondary IV ONE (15:47)
[2016-12-09 15:59] VITALS: BP 126/66
--- NOTE | 2016-12-10 00:28 | Progress Note ---
DATE: 12/09/2016 CARDIOLOGY PROGRESS NOTE: SUBJECTIVE: The patient's condition has improved. He is on oral steroid now with a taper initiated. He is requiring less oxygen and nebulizer treatments, but does have chronic oxygen therapy at home. OBJECTIVE: VITAL SIGNS: Blood pressure is 196/64 to 137/96, heart rate 77, and respiratory rate 17, and he is afebrile. CHEST: Coarse breath sounds. Few rhonchi. No wheezes. CARDIAC: Regular rhythm and rate. Normal S1 and S2. ABDOMEN: Soft. No edema. LABORATORY DATA: White count is 5.2 and hemoglobin 12.7. Potassium is 4.2, bicarbonate 34, BUN 35, and creatinine 0.8. Pro-natriuretic peptide has decreased to 600 from peak over 1300. IMPRESSION: 1. Acute on chronic diastolic congestive heart failure, now clinically compensated. 2. Prerenal azotemia due to steroids in the setting of chronic kidney disease. 3. Chronic obstructive pulmonary disease exacerbation, improved. 4. Hypoxia, chronic, but improved. 5. Acute bronchospasm, stabilized. 6. Metabolic alkalosis, improving with Diamox. PLAN: Once bicarbonate levels are closer to 30, Diamox can be discontinued. Maintenance dose furosemide, long-term. Pulmonary regimen as outlined. No additional cardiovascular workup presently planned. Outpatient followup arranged. Farhad Esparza M.D. DR: Suzanna JOB#: [id number] CC:
--- NOTE | 2016-12-10 11:27 | Discharge Summary ---
Discharge Summary Hospital Course Date of Admission Dec 02, 2016 at 20:48 Date of Discharge Dec 09, 2016 at 16:53 Admitting Diagnosis COPD MARLENA Chase is a 81 year old male who was admitted on Dec 02, 2016 at 20:48 for Chronic Obstructive Pulmonary Disease Hospital Course [id number] Discharge Discharge Disposition Patient was discharged to Home with Home Health(06) Discharge Diagnoses: Abimbola Pacheco NP Dec 10, 2016 11:27
--- NOTE | 2016-12-11 01:19 | Discharge Summary 2 SIG ---
DATE OF ADMISSION: 12/02/2016 DATE OF DISCHARGE: 12/09/2016 CONSULTANTS: 1. Nilo Arevalo M.D. 2. Farhad Esparza M.D. 3. Jostin Arcos M.D. BRIEF HOSPITAL COURSE: The patient is an 81-year-old male, who has history of chronic obstructive pulmonary disease, hypertension, and pancreatic insufficiency, presented from home with complaints of progressive shortness of breath for several days. He had been using nebulizers at home, but has failed to improve. He presented to the emergency room. He was initially placed on BiPAP. Because of respiratory distress, he received a dose of IV steroids and additional breathing treatment. He has improved, but remained significantly symptomatic. He was then admitted to telemetry and was started on IV steroids, bronchodilator, and antibiotics. Chest x-ray done was unremarkable. D-dimer was 358. Venous duplex showed a patent deep venous system bilaterally. Negative for DVT. Dr. Esparza was consulted for evaluation of tachycardia. Dr. Arcos was consulted for evaluation of urinary retention. The patient is on finasteride and Uroxatral, Flomax was increased to 0.8 mg. He was given voiding trials and Hatch catheter was removed. He underwent physical therapy and occupational therapy. Steroid was tapered and he was eventually discharged home on Medrol Dosepak and p.o. Levaquin. He was discharged home with home health. FINAL DIAGNOSES: 1. Acute chronic obstructive pulmonary disease exacerbation. 2. Acute hypoxemic respiratory failure, resolved. 3. Tracheobronchitis. 4. Urinary tract infection. 5. Benign prostatic hypertrophy. 6. Hypertension. 7. Hyperlipidemia. 8. Aortic stenosis. 9. Pancreatic insufficiency. 10. Graves disease. 11. Acute on chronic diastolic congestive heart failure. 12. Paroxysmal atrial tachyarrhythmia. 13. Proteinuria. 14. Possible chronic prostatitis. 15. Probable neurogenic bladder. 16. Urinary retention. Munir Ashley M.D. I have been assigned to dictate discharge summary on this account and I was not involved in the patient's management. Abimbola Pacheco N.P. DR: KRISTINE JOB#: [id number] CC: AMY
== END 2016-12-09 16:53 | disposition home health service (06) | DRG 190 ==
LOC: ENRESERVDT → ENRESERVTM → EDBD 20:18 → EMR 20:40 → 2E 20:48 → EDBEDREQ 21:30 → 2E 12-05 23:08 → 4E 12-07 15:56
DX: J44.0 Chronic obstructive pulmonary disease with (acute) lower respiratory infection (principal); I50.33 Acute on chronic diastolic (congestive) heart failure; J96.01 Acute respiratory failure with hypoxia; E87.3 Alkalosis; N39.0 Urinary tract infection, site not specified; K86.89 Other specified diseases of pancreas; I47.1 Supraventricular tachycardia; N31.9 Neuromuscular dysfunction of bladder, unspecified; J44.1 Chronic obstructive pulmonary disease with (acute) exacerbation; J20.9 Acute bronchitis, unspecified; E78.5 Hyperlipidemia, unspecified; G47.00 Insomnia, unspecified; E05.00 Thyrotoxicosis with diffuse goiter without thyrotoxic crisis or storm; R33.9 Retention of urine, unspecified; I35.0 Nonrheumatic aortic (valve) stenosis; N41.1 Chronic prostatitis; N40.1 Benign prostatic hyperplasia with lower urinary tract symptoms; R33.8 Other retention of urine; Z87.891 Personal history of nicotine dependence; I11.0 Hypertensive heart disease with heart failure
CPT/HCPCS: 36415; 36600; 71010; 71020; 80048; 80053; 81003; 82550; 82553; 82803; 82962; 83605; 83735; 83880; 84439; 84443; 84480; 84484; 85007; 85025; 85379; 86710; 87040; 93005; 93306; 93970; 94640; 94664; 94760; J7620

== ENCOUNTER 2016-12-10 00:43 | Emergency (ER) | payer MEDICARE, OTHER ==
[~2016-12-10] VITALS: Ht 180.3 cm; Wt 79.4 kg
[~2016-12-10 00:43] MED LIST changes: +BYSTOLIC10 MG ORAL; +LEVAQUIN500 MG ORAL; +PROPYLTHIOURACI50 MG PO
[2016-12-10 00:53] VITALS: BP 140/63
--- NOTE | 2016-12-10 01:22 | Emergency Room Report ---
History of Present Illness General Chief Complaint: Male Urogenital Problems Source: Patient Present Illness HPI 81 YO M recently [place] [facility] [place] (9 hours prior at 4pm) after admission for COPD exacerbation and urinary retention. Patient is on chronic home O2, former smoker. States breathing is "fine", feels better. Denies chest pain, SOB, cough. Had soler placed during admission for known BPH but was removed on discharge. Patient told to come back to [facility] if no urination within 6 hours of discharge, which is why they are here. Denies abd pain, nausea/ vomiting. Allergies: Coded Allergies: No Known Allergies (Unverified , 09/26/12) Patient History Past Medical History: other - COPD, BPH Past Surgical History: none Pertinent Family History: none Social History: Denies: alcohol use, drug use, smoking Immunizations: UTD Reviewed Nursing Documentation: PMH: Agreed, PSxH: Agreed Nursing Documentation-PM Past Medical History: No History, Except For Hx Cardiac Problems: No Hx Asthma: No Hx COPD: Yes Hx Cancer: No Hx Gastrointestinal Problems: No Hx Neurological Problems: No Review of Systems All Other Systems: negative except mentioned in HPI Physical Exam Vital Signs Date Time Temp Pulse Resp B/P Pulse Ox O2 Delivery O2 Flow Rate FiO2 12/10/16 00:44 98.1 95 14 123/60 95 Nasal Cannula 4.0 Sp02 EP Interpretation: reviewed, normal General Appearance: normal inspection, well appearing, no apparent distress, alert, GCS 15, non-toxic Head: normocephalic, atraumatic Eyes: bilateral eye EOMI, bilateral eye PERRL ENT: normal ENT inspection, hearing grossly normal, normal voice Neck: normal inspection, full range of motion, supple, no bony tend Respiratory: normal inspection, lungs clear, normal breath sounds, no respiratory distress, no retraction, no accessory muscle use, no wheezing Cardiovascular #1: regular rate, rhythm, no edema Gastrointestinal: normal inspection, normal bowel sounds, non tender, soft, no guarding, no hernia Genitourinary: no CVA tenderness, other - bedside sono: massively distended bladder full of urine. Very large prostate at periphery Musculoskeletal: normal inspection, back normal, normal range of motion, Jayden' s Sign negative Neurologic: normal inspection, alert, oriented x3, responsive, [employer] tech III-XII nml as tested, motor strength/tone normal, speech normal Psychiatric: normal inspection, judgement/insight normal, mood/affect normal Skin: normal inspection, normal color, no rash Medical Decision Making Diagnostic Impression: Primary Impression: BPH (benign prostatic hypertrophy) with urinary retention ER Course Soler re-placed for urinary retention without complication in ED Encouraged continued flomax as recommended in Urology Cx note Advised Urology followup as scheduled DC home Last Vital Signs Date Time Temp Pulse Resp B/P Pulse Ox O2 Delivery O2 Flow Rate FiO2 12/10/16 00:44 98.1 95 14 123/60 95 Nasal Cannula 4.0 Status: improved Disposition: HOME, SELF-CARE STEVEN REARDON M.D. Dec 10, 2016 01:22
[2016-12-10 02:53] VITALS: BP 142/99
[2016-12-10 03:20] VITALS: BP 142/99
== END 2016-12-10 03:20 | disposition home or self-care (01) ==
LOC: EDBD 00:43 → EDUNIT# 00:43 → EMR 01:20
DX: N40.0 Benign prostatic hyperplasia without lower urinary tract symptoms (principal); R33.9 Retention of urine, unspecified; J44.9 Chronic obstructive pulmonary disease, unspecified
CPT/HCPCS: 51702; 99282

== ENCOUNTER 2016-12-10 12:39 | Inpatient (IN) | payer MEDICARE, OTHER ==
[~2016-12-10] VITALS: Ht 177.8 cm; Wt 59.0 kg
[2016-12-10 13:05] VITALS: BP 151/72
[2016-12-10 13:06] LABS: BASOPHILS % (AUTO) 0.9 % (0.0-2.0); EOSINOPHILS % (AUTO) 0.1 % (0.0-3.0); LYMPHOCYTES % (AUTO) 3.5 % (20.0-45.0); MEAN CORPUSCULAR HEMOGLOBIN 29.8 PG (27.0-31.0); MEAN CORPUSCULAR VOLUME 93 FL (80-99); MEAN PLATELET VOLUME 6.6 FL (6.5-10.1); MONOCYTES % (AUTO) 14.2 % (1.0-10.0); NEUTROPHILS % (AUTO) 81.3 % (45.0-75.0); PLATELET COUNT 164 K/UL (150-450); RED BLOOD COUNT 4.75 M/UL (4.70-6.10); RED CELL DISTRIBUTION WIDTH 12.4 % (11.6-14.8); WHITE BLOOD COUNT 12.7 K/UL (4.8-10.8)
[2016-12-10 13:18] LABS: TROPONIN I < 0.30 ng/mL (<=0.30)
[2016-12-10 13:19] LABS: ALANINE AMINOTRANSFERASE 25 U/L (3-41); ALBUMIN/GLOBULIN RATIO 1.9 (1.0-2.7); ANION GAP 8 (5-15); ASPARTATE AMINO TRANSFERASE 15 U/L (5-40); CALCIUM 8.7 mg/dL (8.6-10.2); CARBON DIOXIDE 34 mEQ/L (20-30); CHLORIDE 99 mEQ/L (98-107); CREATININE 0.7 mg/dL (0.7-1.2); HEMOLYSIS 7; POTASSIUM 4.2 mEQ/L (3.4-4.9); SODIUM 141 mEQ/L (135-145); TOTAL PROTEIN 5.3 g/dL (6.6-8.7)
[2016-12-10 13:22] LABS: INR 1.1 (0.9-1.1); PROTHROMBIN TIME 10.9 SEC (9.30-11.50)
[2016-12-10 13:26] LABS: CKMB 2.1 ng/mL (< 6.7)
[2016-12-10] MEDS ORDERED: Morphine Sulfate 4mg/ml Inj IVP ONE (13:30)
[2016-12-10] MEDS ORDERED: Piperacillin/Tazobactam 3.375 GM in NS 110 ML IVPB ONE (13:30)
[2016-12-10 14:39] LABS: APPEARANCE,URINE CLOUDY; KETONES,URINE NEGATIVE (NEGATIVE); LEUKOCYTE ESTERASE ,URINE NEGATIVE (NEGATIVE); NITRITE,URINE NEGATIVE (NEGATIVE); PH,URINE 7 (4.5-8.0); PROTEIN,URINE NEGATIVE (NEGATIVE); UROBILINOGEN,URINE NORMAL MG/DL (0.0-1.0)
[2016-12-10 14:47] LABS: SQUAMOUS EPITHELIAL CELL,UR FEW /LPF (NONE/OCC)
[2016-12-10 14:48] LABS: AMORPHOUS SEDIMENT,UR MODERATE /LPF; BACTERIA,URINE FEW /HPF
--- NOTE | 2016-12-10 14:51 | Diagnostic Imaging Report ---
Indication: Chest Technique: One view of the chest Comparison: 12/05/2016 Findings: Lungs are hyperinflated. Lungs and pleural spaces remain clear. Heart size is normal. No significant change Impression: COPD changes. No acute process
[2016-12-10 15:00] VITALS: BP 101/42
[2016-12-10 16:49] VITALS: BP 112/56
[2016-12-10] MEDS ORDERED: Zolpidem 5mg tab ORAL PRN (18:00)
[2016-12-10] MEDS ORDERED: Nitroglycerin Subl 0.4mg tab (Bottle Of 25) SL PRN (18:00)
[2016-12-10] MEDS ORDERED: Milk of Magnesia 30ml Ud ORAL PRN (18:00)
[2016-12-10] MEDS ORDERED: Propylthiouracil 50mg tab ORAL SCH (18:00)
[2016-12-10] MEDS ORDERED: LORazepam 0.5mg tab ORAL PRN (18:00)
[2016-12-10] MEDS: DuoNeb 0.5-3(2.5)mg/3ml neb HHN SCH ×2 (19:19→23:20)
[2016-12-10] MEDS ORDERED: Levofloxacin 500mg tab ORAL ONE (20:00)
[2016-12-10] MEDS: Tamsulosin 0.4mg cap ORAL SCH (21:33)
[2016-12-10] MEDS: Solu-MEDROL 125mg Inj IVP SCH (21:33)
[2016-12-10] MEDS: Heparin 5000 units/ml inj SUBQ SCH (21:34)
[2016-12-10] MEDS: Propylthiouracil 50mg tab ORAL SCH (21:43)
--- NOTE | 2016-12-10 23:20 | Consultation ---
DATE OF CONSULTATION: 12/10/2016 REFERRING PHYSICIAN: Nilo Arevalo M.D. REASON FOR CONSULTATION: Chest pain. HISTORY OF PRESENT ILLNESS: This is an 81-year-old [place] gentleman who was just discharged from the hospital yesterday after a course of therapy for chronic obstructive pulmonary disease. He returned to the emergency room today complaining of chest pain and some bleeding from his gastrointestinal tract. His initial troponin level was negative. His electrocardiogram revealed sinus rhythm with right bundle-branch block noted and nonspecific ST changes. A CAT scan of the abdomen obtained revealed severe edema of the esophageal wall, left superficial femoral artery stenosis, and no aortic aneurysm. Chest x-ray revealed hyperinflation. Hospitalization was initiated. PAST MEDICAL HISTORY: Chronic obstructive pulmonary disease, hypertension, hyperlipidemia, and Graves disease. ALLERGIES: None. SOCIAL HISTORY: Prior smoker. MEDICATIONS: Reviewed. REVIEW OF SYSTEMS: Otherwise unremarkable. All points negative and as noted above. Recent thyroid panel revealed euthyroid state on current regimen. PHYSICAL EXAMINATION: VITAL SIGNS: Blood pressure 112/56, pulse 84, respiratory rate 18, and afebrile. HEENT: Oropharynx clear. NECK: Supple. LUNGS: Diminished breath sounds. CARDIAC: Regular rhythm and rate. Normal S1 and S2 with a fourth heart sound. ABDOMEN: Slightly distended, but soft. EXTREMITIES: With good pulses and no edema. LABORATORY DATA: White count 12.7 and hemoglobin 14.1. Potassium 4.2, BUN 41, creatinine 0.7, pro-natriuretic peptide 389, troponin less than 0.3, and albumin 3.5. IMPRESSION: 1. Chest pain, possible acute coronary syndrome, more likely gastrointestinal related. 2. Prerenal azotemia. 3. Chronic obstructive pulmonary disease. 4. Graves disease with hyperthyroidism, on PTU. 5. Esophagitis. 6. Paroxysmal atrial ectopy. PLAN: Proton pump inhibitor . Hold aspirin if any signs of bleeding. Titrate beta-[place] and diltiazem based on clinical parameters. Farhad Esparza M.D. DR: RASHID JOB#: [id number] CC:
[2016-12-11] VITALS: BP 105/57
[2016-12-11] MEDS: DuoNeb 0.5-3(2.5)mg/3ml neb HHN SCH ×6 (03:19→23:00)
[2016-12-11 04:00] VITALS: BP_SYST 105; BP_SYST 110; BP_DIAS 58; BP_DIAS 59
--- NOTE | 2016-12-11 06:24 | Emergency Room Report ---
History of Present Illness General Chief Complaint: Chest Pain Source: Patient, Family Member, EMS Present Illness HPI Patient presents with complaints of chest pain midsternal Family describes patient as having vomiting episode earlier calculation reviewer saw the patient have dark vomitus Patient appears very uncomfortable off for increasing nauseated Began complaining of midsternal chest pain as well There was some radiation towards the back Denies any diarrhea denies any lower abdominal pain Patient was recently discharged after recent hospitalization Allergies: Coded Allergies: No Known Allergies (Unverified , 09/26/12) Patient History Past Medical History: see triage record Pertinent Family History: none Reviewed Nursing Documentation: PMH: Agreed, PSxH: Agreed Nursing Documentation-PMH Hx Cardiac Problems: No Hx Hypertension: Yes - High cholesterol Hx Asthma: No Hx COPD: Yes Hx Cancer: No Hx Gastrointestinal Problems: No Hx Neurological Problems: No Review of Systems All Other Systems: negative except mentioned in HPI Physical Exam Vital Signs Date Time Temp Pulse Resp B/P Pulse Ox O2 Delivery O2 Flow Rate FiO2 12/10/16 12:33 100 20 158/71 92 Nasal Cannula 2.0 12/10/16 13:05 98.0 12/10/16 19:18 32 Sp02 EP Interpretation: reviewed, normal General Appearance: mild distress - Appears uncomfortable and nauseated Head: normocephalic, atraumatic Eyes: bilateral eye EOMI, bilateral eye PERRL ENT: hearing grossly normal, normal pharynx, TMs + canals normal, uvula midline Neck: full range of motion, supple, no meningismus, no bony tend Respiratory: no rhonchi, no respiratory distress, no retraction, no accessory muscle use, crackles - both lower lobes Cardiovascular #1: normal peripheral pulses, regular rate, rhythm, no edema, no gallop, no JVD, no murmur Gastrointestinal: normal bowel sounds, non tender, soft, no mass, no organomegaly, non-distended, no guarding, no hernia, no pulsatile mass, no rebound Genitourinary: no CVA tenderness Musculoskeletal: normal inspection Neurologic: oriented x3, responsive, central office associate III-XII nml as tested, motor strength/ tone normal, sensory intact Psychiatric: mood/affect normal Skin: warm/dry, palpation normal, other - Multiple areas of bruising on the hands and arms Lymphatic: normal inspection, no adenopathy Medical Decision Making Diagnostic Impression: Primary Impression: ACS Additional Impressions: COPD (chronic obstructive pulmonary disease) Esophagitis ER Course Patient is a fairly complex patient with multiple differential to consideration including but not limited to cardiac cardiopulmonary and vascular emergencies Given the patient's chest discomfort along with radiation to the back to his nausea and vomiting I was concerned about aortic dissection as well patient did have CT chest abdomen pelvis Refer to her report for full specifics there was evidence of edema around the distal esophagus in line with esophagitis Patient received further pain medication at this time doing significantly better admitted for further inpatient care Labs Test 12/10/16 12:50 12/10/16 14:14 White Blood Count 12.7 K/UL (4.8-10.8) Red Blood Count 4.75 M/UL (4.70-6.10) Hemoglobin 14.1 G/DL (14.2-18.0) Hematocrit 44.1 % (42.0-52.0) Mean Corpuscular Volume 93 FL (80-99) Mean Corpuscular Hemoglobin 29.8 PG (27.0-31.0) Mean Corpuscular Hemoglobin Concent 32.0 G/DL (32.0-36.0) Red Cell Distribution Width 12.4 % (11.6-14.8) Platelet Count 164 K/UL (150-450) Mean Platelet Volume 6.6 FL (6.5-10.1) Neutrophils (%) (Auto) 81.3 % (45.0-75.0) Lymphocytes (%) (Auto) 3.5 % (20.0-45.0) Monocytes (%) (Auto) 14.2 % (1.0-10.0) Eosinophils (%) (Auto) 0.1 % (0.0-3.0) Basophils (%) (Auto) 0.9 % (0.0-2.0) Prothrombin Time 10.9 SEC (9.30-11.50) Prothromb Time International Ratio 1.1 (0.9-1.1) Activated Partial Thromboplast Time 24 SEC (23-33) Sodium Level 141 mEQ/L (135-145) Potassium Level 4.2 mEQ/L (3.4-4.9) Chloride Level 99 mEQ/L (98-107) Carbon Dioxide Level 34 mEQ/L (20-30) Anion Gap 8 (5-15) Blood Urea Nitrogen 41 mg/dL (7-23) Creatinine 0.7 mg/dL (0.7-1.2) Estimat Glomerular Filtration Rate mL/min (>60) Glucose Level 115 mg/dL (74-106) Calcium Level 8.7 mg/dL (8.6-10.2) Total Bilirubin 0.3 mg/dL (0.0-1.2) Aspartate Amino Transf (AST/SGOT) 15 U/L (5-40) Alanine Aminotransferase (ALT/SGPT) 25 U/L (3-41) Alkaline Phosphatase 56 U/L (40-129) Total Creatine Kinase 30 U/L (38-174) Creatine Kinase MB 2.1 ng/mL (< 6.7) Creatine Kinase MB Relative Index 7.0 Troponin I < 0.30 ng/mL (<=0.30) Pro-B-Type Natriuretic Peptide 389 pg/mL (0-450) Total Protein 5.3 g/dL (6.6-8.7) Albumin 3.5 g/dL (3.5-5.2) Globulin 1.8 g/dL Albumin/Globulin Ratio 1.9 (1.0-2.7) Urine Color Yellow Urine Appearance Cloudy Urine pH 7 (4.5-8.0) Urine Specific [place] 1.010 (1.005-1.035) Urine Protein Negative (NEGATIVE) Urine Glucose (UA) Negative (NEGATIVE) Urine Ketones Negative (NEGATIVE) Urine Occult Blood 3+ (NEGATIVE) Urine Nitrite Negative (NEGATIVE) Urine Bilirubin Negative (NEGATIVE) Urine Urobilinogen Normal MG/DL (0.0-1.0) Urine Leukocyte Esterase Negative (NEGATIVE) Urine RBC 10-15 /HPF (0 - 0) Urine WBC 2-4 /HPF (0 - 0) Urine Squamous Epithelial Cells Few /LPF (NONE/OCC) Urine Amorphous Sediment Moderate /LPF (NONE) Urine Bacteria Few /HPF (NONE) EKG Diagnostic Results Rate: normal Rhythm: NSR ST Segments: other - Nonspecific ST and T-wave changes, mild prolonged QRS, questionable right bundle branch block, Rhythm Strip Diag. Results EP Interpretation: yes Rate: 66 Rhythm: NSR, no PVC's, no ectopy Chest X-Ray Diagnostic Results EP Interpretation: Yes Findings: no consolidation, no effusion, no pneumothorax, other - COPD Number of Views: 1 CT/MRI/US Diagnostic Results CT/MRI/US Diagnostic Results : Impression CT chest abdomen pelvis: Refer to her report for full specifics, edema around the esophagus possible esophagitis Last Vital Signs Date Time Temp Pulse Resp B/P Pulse Ox O2 Delivery O2 Flow Rate FiO2 12/11/16 04:00 84 12/11/16 03:27 16 99 Nasal Cannula 3.0 32 12/11/16 00:00 97.3 105/57 Status: improved Disposition: ADMITTED INPATIENT Condition: Serious Referrals: TAVO SMITH (PCP) ORLY BERMEO D.O. Dec 11, 2016 06:24
[2016-12-11] MEDS: Propylthiouracil 50mg tab ORAL SCH ×3 (07:02→21:52)
[2016-12-11] MEDS: Pancrease Cap ORAL SCH ×3 (07:02→16:47)
[2016-12-11] MEDS: Solu-MEDROL 125mg Inj IVP SCH (07:03)
[2016-12-11 07:28] LABS: MEAN CORPUSCULAR HEMOGLOBIN 30.6 PG (27.0-31.0); MEAN CORPUSCULAR HGB CONC 32.2 G/DL (32.0-36.0); MEAN CORPUSCULAR VOLUME 95 FL (80-99); MEAN PLATELET VOLUME 6.7 FL (6.5-10.1); PLATELET COUNT 142 K/UL (150-450); RED BLOOD COUNT 4.44 M/UL (4.70-6.10); RED CELL DISTRIBUTION WIDTH 12.7 % (11.6-14.8)
[2016-12-11 07:37] LABS: TROPONIN I < 0.30 ng/mL (<=0.30)
[2016-12-11 07:42] LABS: ALANINE AMINOTRANSFERASE 24 U/L (3-41); ALBUMIN/GLOBULIN RATIO 1.7 (1.0-2.7); ANION GAP 13 (5-15); ASPARTATE AMINO TRANSFERASE 13 U/L (5-40); CALCIUM 8.6 mg/dL (8.6-10.2); CARBON DIOXIDE 30 mEQ/L (20-30); CHLORIDE 97 mEQ/L (98-107); CREATININE 0.7 mg/dL (0.7-1.2); HEMOLYSIS 10; POTASSIUM 5.1 mEQ/L (3.4-4.9); SODIUM 140 mEQ/L (135-145)
[2016-12-11 07:55] VITALS: BP 115/64
[2016-12-11] MEDS: Aspirin EC 81mg tab ORAL SCH (08:48)
[2016-12-11] MEDS: Heparin 5000 units/ml inj SUBQ SCH ×2 (08:48→21:00)
[2016-12-11] MEDS: Sinemet 25/100 tab ORAL SCH ×3 (08:48→18:33)
[2016-12-11 10:54] LABS: BAND NEUTROPHILS % (MANUAL) 0 % (0-8); BASOPHILS % (MANUAL) 0 % (0-2); EOSINOPHILS % (MANUAL) 0 % (0-3); LYMPHOCYTES % (MANUAL) 9 % (20-45); NEUTROPHILS % (MANUAL) 90 % (45-75); PLATELET ESTIMATE ADEQUATE; PLATELET MORPHOLOGY NORMAL; TOTAL CELLS COUNTED 100
[2016-12-11 11:16] VITALS: BP 113/56
[2016-12-11] MEDS: Potassium Chloride 10 MEQ in D5 1/2NS 1,000 ML IV SCH ×2 (12:11→12:19)
[2016-12-11] MEDS: D5 1/2NS 1,000 ML IV SCH (12:41)
[2016-12-11 16:00] VITALS: BP 111/90
--- NOTE | 2016-12-11 16:19 | Pulmonology Progress Note ---
Assessment/Plan Assessment/Plan PROBLEM LIST: 1. Chronic obstructive pulmonary disease with acute exacerbation. 2. Hypoxemic respiratory failure 3. Tracheobronchitis. 4. Urinary tract infection. 5. Benign prostatic hyperplasia 6. Hypertension. 7. Hyperlipidemia. 8. Aortic Stenosis 9. History of pancreatic insufficiency. 10. Grave's disease 11. CHF 12. GIB possible 13. chest pain 14. possible esophagitis TREATMENT PLAN: respiratory care GI follow up ? cards noted back on Iv solumedrol CT noted oxygen monitor for change stabilize close follow up impression, plan, and exam edited and reviewed in detail care discussed with RN Subjective Allergies: Coded Allergies: No Known Allergies (Unverified , 09/26/12) Subjective admitted for possible GIB and chest pain respiratory labile but on low flow oxygen Objective Last 24 Hour Vital Signs Date Time Temp Pulse Resp B/P Pulse Ox O2 Delivery O2 Flow Rate FiO2 12/11/16 16:00 97.9 68 20 111/90 91 Nasal Cannula 3.0 12/11/16 13:33 89 113/56 12/11/16 11:35 89 20 99 Nasal Cannula 3.0 12/11/16 11:25 70 20 95 Nasal Cannula 3.0 12/11/16 11:16 96.6 74 20 113/56 97 Nasal Cannula 3.0 12/11/16 08:00 79 12/11/16 07:59 87 18 99 Nasal Cannula 3.0 12/11/16 07:55 97.2 108 20 115/64 98 Nasal Cannula 3.0 12/11/16 07:49 82 18 94 Nasal Cannula 3.0 12/11/16 07:48 94 Nasal Cannula 3.0 12/11/16 07:47 Nasal Cannula 3.0 12/11/16 07:03 83 110/58 12/11/16 04:00 97.0 83 19 110/58 96 Room Air 12/11/16 04:00 84 12/11/16 04:00 97.0 82 20 105/59 99 Room Air 12/11/16 03:27 81 16 99 Nasal Cannula 3.0 32 12/11/16 03:19 77 16 98 Nasal Cannula 3.0 32 12/11/16 00:00 97.3 94 20 105/57 94 Nasal Cannula 2.0 12/10/16 23:28 78 16 98 Nasal Cannula 3.0 32 12/10/16 23:20 78 16 96 Nasal Cannula 3.0 32 12/10/16 20:00 76 12/10/16 19:26 74 18 99 Nasal Cannula 3.0 32 12/10/16 19:19 Nasal Cannula 3.0 32 12/10/16 19:19 97 Nasal Cannula 3.0 32 12/10/16 19:18 75 18 Nasal Cannula 3.0 32 12/10/16 19:18 75 18 97 Nasal Cannula 3.0 32 12/10/16 16:49 97.2 84 18 112/56 92 Nasal Cannula 3.0 Intake and Output 12/10/16 12/11/16 19:00 07:00 Output Total 30 ml 650 ml Balance -30 ml -650 ml Output Urine Total 30 ml 650 ml Objective WDWN NAD EOMI reduced breath sounds bilaterally with some rhonchi [id number] without MRG NABS nontender no HSM no CCE nonfocal alert and oriented x 2 on oxygen Laboratory Tests 12/11/16 06:20: White Blood Count 9.0, Red Blood Count 4.44L, Hemoglobin 13.6L, Hematocrit 42.3 , Mean Corpuscular Volume 95, Mean Corpuscular Hemoglobin 30.6, Mean Corpuscular Hemoglobin Concent 32.2, Red Cell Distribution Width 12.7, Platelet Count 142L, Mean Platelet Volume 6.7, Neutrophils (%) (Auto) , Lymphocytes (%) ( Auto) , Monocytes (%) (Auto) , Eosinophils (%) (Auto) , Basophils (%) (Auto) , Differential Total Cells Counted 100, Neutrophils % (Manual) 90H, Lymphocytes % (Manual) 9L, Monocytes % (Manual) 1, Eosinophils % (Manual) 0, Basophils % ( Manual) 0, Band Neutrophils 0, Platelet Estimate Adequate, Platelet Morphology Normal, Red Blood Cell Morphology Normal, Sodium Level 140, Potassium Level 5.1H , Chloride Level 97L, Carbon Dioxide Level 30, Anion Gap 13, Blood Urea Nitrogen 46H, Creatinine 0.7, Estimat Glomerular Filtration Rate , Glucose Level 93, Calcium Level 8.6, Total Bilirubin 0.3, Aspartate Amino Transf (AST/ SGOT) 13, Alanine Aminotransferase (ALT/SGPT) 24, Alkaline Phosphatase 55, Troponin I < 0.30, Total Protein 5.0L, Albumin 3.2L, Globulin 1.8, Albumin/ Globulin Ratio 1.7 Current Medications Medications (Trade) Dose Ordered Sig/Larissa Route PRN Reason Start Time Stop Time Status Last Admin Dose Admin Albuterol/ Ipratropium (DuoNeb 0.5-3(2.5)mg/3ml) 3 ml Q4HRT HHN 12/10/16 19:00 12/15/16 18:59 12/11/16 11:00 Amylase/Lipase/ Protease (Pancrease) 1 ea TIAC ORAL 12/11/16 06:30 01/10/17 06:29 12/11/16 12:10 Aspirin (Ecotrin) 81 mg DAILY ORAL 12/11/16 09:00 01/10/17 08:59 12/11/16 08:48 Atorvastatin Calcium (Lipitor) 10 mg BEDTIME ORAL 12/10/16 21:00 01/09/17 20:59 12/10/16 21:33 Carbidopa/Levodopa (Sinemet 25/100) 1 ea THREE TIMES A DAY ORAL 12/11/16 09:00 01/10/17 08:59 12/11/16 13:33 Dextrose/Sodium Chloride (D5 0.45% NS) 1,000 ml @ 75 mls/hr [id number] IV 12/11/16 12:30 01/10/17 12:29 12/11/16 12:41 Diltiazem HCl (Cardizem) 60 mg EVERY 8 HOURS ORAL 12/10/16 22:00 01/09/17 21:59 12/11/16 13:33 Escitalopram Oxalate (Lexapro) 20 mg DAILY ORAL 12/11/16 09:00 01/10/17 08:59 12/11/16 08:48 Finasteride (Proscar) 5 mg DAILY ORAL 12/11/16 09:00 01/10/17 08:59 12/11/16 08:48 Heparin Sodium (Porcine) (Heparin 5000 units/ml) 5,000 units EVERY 12 HOURS SUBQ 12/10/16 21:00 01/09/17 20:59 12/10/16 21:34 Levofloxacin (Levaquin) 250 mg Q24H ORAL 12/11/16 18:00 12/18/16 17:59 Lorazepam (Ativan) 0.5 mg TIDPRN PRN ORAL For Anxiety 12/10/16 18:00 12/17/16 17:59 Magnesium Hydroxide (Mom) 30 ml DAILYPRN PRN ORAL Constipation 12/10/16 18:00 01/09/17 17:59 Methylprednisolone Sodium Succinate 60 mg 60 mg EVERY 12 HOURS IVP 12/11/16 21:00 01/10/17 20:59 Montelukast Sodium (Singulair) 10 mg QPM ORAL 12/11/16 16:30 01/10/17 16:29 Nebivolol (Bystolic) 10 mg DAILY ORAL 12/11/16 09:00 01/10/17 08:59 12/11/16 08:47 Nicotine (Nicoderm) 1 patch Q24H TDERMAL 12/11/16 20:00 01/10/17 19:59 Nitroglycerin (Ntg) 0.4 mg Q5M PRN SL Prn Chest Pain 12/10/16 18:00 01/09/17 17:59 Pantoprazole (Protonix) 40 mg DAILY ORAL 12/11/16 09:00 01/10/17 08:59 12/11/16 08:48 Propylthiouracil (Ptu) 50 mg Q8HR ORAL 12/10/16 22:00 01/09/17 21:59 12/11/16 13:33 Tamsulosin HCl (Flomax) 0.4 mg BEDTIME ORAL 12/10/16 21:00 01/09/17 20:59 12/10/16 21:33 Zolpidem Tartrate (Ambien) 5 mg HSPRN PRN ORAL Insomnia 12/10/16 18:00 01/09/17 17:59 TAVO SMITH Dec 11, 2016 16:19
[2016-12-11] MEDS: Montelukast 10mg tablet ORAL SCH (16:47)
--- NOTE | 2016-12-11 19:19 | History and Physical Report ---
DATE OF ADMISSION: 12/10/2016 CHIEF COMPLAINT: Chest pain. HISTORY OF PRESENT ILLNESS: The patient is a very pleasant 81-year-old male. He has a history of COPD, hypertension, BPH, urinary retention, and Parkinson disease. He was recently admitted for COPD exacerbation and bronchitis. He was discharged just was one day prior to admission, but returned because he developed chest pain and shortness of breath. On evaluation in the emergency room, the patient's initial set of enzymes were unremarkable. EKG showed a right bundle-branch block, which was unchanged from prior EKG. He also had some urinary retention, had a Hatch catheter replaced. He is now admitted for further evaluation and care. The patient denies any fevers or chills. He has had nonproductive cough. He denies any nausea or vomiting. PAST MEDICAL HISTORY: As above. PAST SURGICAL HISTORY: None. MEDICATIONS: Current medications, reconciled and reviewed. ALLERGIES: None. SOCIAL HISTORY: There is no known history of tobacco, ethanol, or drugs. FAMILY HISTORY: None. REVIEW OF SYSTEMS: General: No fever or chills. HEENT: No headaches or visual changes. Cardiopulmonary: Positive chest pain and shortness of breath. Gastrointestinal: No nausea or vomiting. Genitourinary: No urgency or frequency. Musculoskeletal: No joint pain or swelling. Neurological: No evidence of seizures. PHYSICAL EXAMINATION: GENERAL: The patient is well developed male, no apparent distress. He is thin and frail, but awake and alert. VITAL SIGNS: Temperature 97.2 degrees, pulse 108, respirations 20, and blood pressure 115/64. HEENT: His pupils are equal, round, and light. Sclerae are anicteric. Oropharynx is clear. NECK: Supple. HEART: Regular rate and rhythm. LUNGS: Clear. ABDOMEN: Soft, nontender and nondistended. EXTREMITIES: Without clubbing, cyanosis, or edema. LABORATORY AND DIAGNOSTIC DATA: Chest x-ray was clear. White count 12, hemoglobin 14, hematocrit 44, and platelets of 164,000. Sodium 141 and potassium 4.2. Troponin was negative x2. ASSESSMENT: This is a pleasant male with complaints of chest pain. 1. Chest pain, rule out acute coronary syndrome. 2. Chronic obstructive pulmonary disease. 3. Parkinson disease. 4. Hypertension. 5. Anxiety. PLAN: Antiplatelet therapy, resume oral antibiotics, replace Hatch, intravenous steroids, respiratory treatments, PT/OT evaluation and consider acute rehabilitation when stable for discharge. Nilo Arevalo M.D. DR: SOLO JOB#: [id number] CC:
--- NOTE | 2016-12-11 19:23 | General Progress Note ---
Assessment/Plan Assessment/Plan Assessment - Atypical CP - N/V - Hematemesis - Thickened esophageal wall on CT - COPD Recommendations - po diet at tolerated - PPI - Elevate HOB - optimize cardiac and pulmonary status - EGD next week once stable Subjective Allergies: Coded Allergies: No Known Allergies (Unverified , 09/26/12) Objective Last 24 Hour Vital Signs Date Time Temp Pulse Resp B/P Pulse Ox O2 Delivery O2 Flow Rate FiO2 12/11/16 16:00 97.9 68 20 111/90 91 Nasal Cannula 3.0 12/11/16 15:55 77 18 98 Nasal Cannula 3.0 12/11/16 15:45 70 18 95 Nasal Cannula 3.0 12/11/16 13:33 89 113/56 12/11/16 11:35 89 20 99 Nasal Cannula 3.0 12/11/16 11:25 70 20 95 Nasal Cannula 3.0 12/11/16 11:16 96.6 74 20 113/56 97 Nasal Cannula 3.0 12/11/16 08:00 79 12/11/16 07:59 87 18 99 Nasal Cannula 3.0 12/11/16 07:55 97.2 108 20 115/64 98 Nasal Cannula 3.0 12/11/16 07:49 82 18 94 Nasal Cannula 3.0 12/11/16 07:48 94 Nasal Cannula 3.0 12/11/16 07:47 Nasal Cannula 3.0 12/11/16 07:03 83 110/58 12/11/16 04:00 97.0 83 19 110/58 96 Room Air 12/11/16 04:00 84 12/11/16 04:00 97.0 82 20 105/59 99 Room Air 12/11/16 03:27 81 16 99 Nasal Cannula 3.0 32 12/11/16 03:19 77 16 98 Nasal Cannula 3.0 32 12/11/16 00:00 97.3 94 20 105/57 94 Nasal Cannula 2.0 12/10/16 23:28 78 16 98 Nasal Cannula 3.0 32 12/10/16 23:20 78 16 96 Nasal Cannula 3.0 32 12/10/16 20:00 76 12/10/16 19:26 74 18 99 Nasal Cannula 3.0 32 12/10/16 19:19 Nasal Cannula 3.0 32 12/10/16 19:19 97 Nasal Cannula 3.0 32 12/10/16 19:18 75 18 Nasal Cannula 3.0 32 12/10/16 19:18 75 18 97 Nasal Cannula 3.0 32 Intake and Output 12/10/16 12/11/16 19:00 07:00 Output Total 30 ml 650 ml Balance -30 ml -650 ml Output Urine Total 30 ml 650 ml Laboratory Tests 12/11/16 06:20: White Blood Count 9.0, Red Blood Count 4.44L, Hemoglobin 13.6L, Hematocrit 42.3 , Mean Corpuscular Volume 95, Mean Corpuscular Hemoglobin 30.6, Mean Corpuscular Hemoglobin Concent 32.2, Red Cell Distribution Width 12.7, Platelet Count 142L, Mean Platelet Volume 6.7, Neutrophils (%) (Auto) , Lymphocytes (%) ( Auto) , Monocytes (%) (Auto) , Eosinophils (%) (Auto) , Basophils (%) (Auto) , Differential Total Cells Counted 100, Neutrophils % (Manual) 90H, Lymphocytes % (Manual) 9L, Monocytes % (Manual) 1, Eosinophils % (Manual) 0, Basophils % ( Manual) 0, Band Neutrophils 0, Platelet Estimate Adequate, Platelet Morphology Normal, Red Blood Cell Morphology Normal, Sodium Level 140, Potassium Level 5.1H , Chloride Level 97L, Carbon Dioxide Level 30, Anion Gap 13, Blood Urea Nitrogen 46H, Creatinine 0.7, Estimat Glomerular Filtration Rate , Glucose Level 93, Calcium Level 8.6, Total Bilirubin 0.3, Aspartate Amino Transf (AST/ SGOT) 13, Alanine Aminotransferase (ALT/SGPT) 24, Alkaline Phosphatase 55, Troponin I < 0.30, Total Protein 5.0L, Albumin 3.2L, Globulin 1.8, Albumin/ Globulin Ratio 1.7 Height (Feet): 5 Height (Inches): 10.00 Weight (Pounds): 130 ZAIN TINOCOONEL Dec 11, 2016 19:23
[2016-12-11 20:00] VITALS: BP 122/63
[2016-12-11] MEDS ORDERED: Solu-MEDROL 125mg Inj IVP SCH (21:00)
[2016-12-11] MEDS: Tamsulosin 0.4mg cap ORAL SCH (21:51)
[2016-12-12 00:05] VITALS: BP 127/61
[2016-12-12] MEDS: D5 1/2NS 1,000 ML IV SCH ×2 (00:47→14:35)
--- NOTE | 2016-12-12 01:29 | Consultation ---
DATE OF CONSULTATION: 12/11/2016 GASTROLOGY CONSULTATION CONSULTING PHYSICIAN: Beverly Ramirez M.D. CHIEF COMPLAINT: I was asked to see this patient by Dr. Nilo Arevalo for evaluation of chest pain and gastrointestinal bleeding. HISTORY OF PRESENT ILLNESS: The patient is a pleasant 81-year-old [place] man, who is brought into the hospital due to complaints of daily retrosternal chest pain. The patient's states that the patient complains of frequent bouts of heartburn and chest pain and also the patient was found to have episodes of vomiting with some dark material and nausea. The patient was therefore brought to the hospital and is being admitted for hemodialysis for this. The patient has had no recent endoscopy and the wants to proceed with this examination. The patient will be seen by Cardiology and Pulmonary services, and CT scan of the abdomen showed edema of esophageal wall. PAST MEDICAL HISTORY: History of chronic obstructive pulmonary disease, hypertension, hyperlipidemia, and history of Graves disease. ALLERGIES: None. FAMILY HISTORY: Noncontributory. SOCIAL HISTORY: The patient is a prior smoker. His looks after his affairs. He is a [place]. REVIEW OF SYSTEMS: Otherwise negative. PHYSICAL EXAMINATION: GENERAL: This is a debilitated elderly white man, seen in his room. HEENT: Normocephalic and atraumatic. Sclerae anicteric. Oropharynx clear. NECK: Supple. CHEST: Clear to auscultation. CARDIAC: Regular rate. ABDOMEN: Soft. EXTREMITIES: Revealed no edema. LABORATORY DATA: Noted. ASSESSMENT: This patient presents with chest pain, retrosternal discomfort, nausea, vomiting, and abnormal esophagus on CT scan all of which point to significant esophageal disease. The patient should undergo endoscopy to aptly evaluate the upper gastrointestinal tract. In the meantime, he should be placed on a proton pump inhibitor and reflux precautions should be undertaken. The patient will be seen by Cardiology and Pulmonary services in preoperative evaluation and clearance. RECOMMENDATIONS: Per above discussion and per orders written in the chart. The patient will undergo endoscopy in the next few days. Thank you for asking me to participate in the care of this patient. Beverly Ramirez M.D. DR: SALEEM JOB#: [id number] CC:
[2016-12-12] MEDS: DuoNeb 0.5-3(2.5)mg/3ml neb HHN SCH ×6 (02:50→23:38)
[2016-12-12 04:05] VITALS: BP 116/78
[2016-12-12] MEDS: Propylthiouracil 50mg tab ORAL SCH ×3 (05:30→21:13)
[2016-12-12] MEDS: Pancrease Cap ORAL SCH ×3 (05:30→17:03)
--- NOTE | 2016-12-12 07:50 | Pulmonology Progress Note ---
Assessment/Plan Assessment/Plan PROBLEM LIST: 1. Chronic obstructive pulmonary disease with acute exacerbation. 2. Hypoxemic respiratory failure 3. Tracheobronchitis. 4. Urinary tract infection. 5. Benign prostatic hyperplasia 6. Hypertension. 7. Hyperlipidemia. 8. Aortic Stenosis 9. History of pancreatic insufficiency. 10. Grave's disease 11. CHF 12. GIB possible 13. chest pain 14. possible esophagitis TREATMENT PLAN: respiratory care GI follow up noted cards noted and reviewe back on Iv solumedrol; taper CT noted oxygen care monitor for change stabilize close follow up and monitor impression, plan, and exam edited and reviewed in detail care discussed with RN Subjective Allergies: Coded Allergies: No Known Allergies (Unverified , 09/26/12) Subjective cards and gi noted on oxygen Objective Last 24 Hour Vital Signs Date Time Temp Pulse Resp B/P Pulse Ox O2 Delivery O2 Flow Rate FiO2 12/12/16 07:17 Nasal Cannula 12/12/16 07:16 Nasal Cannula 12/12/16 07:16 Nasal Cannula 3.0 32 12/12/16 07:15 94 Nasal Cannula 3.0 32 12/12/16 05:30 68 116/78 12/12/16 04:05 97.0 68 20 116/78 95 Room Air 12/12/16 04:00 65 12/12/16 02:51 Nasal Cannula 3.0 32 12/12/16 02:50 Nasal Cannula 3.0 32 12/12/16 00:05 97.0 71 20 127/61 94 Room Air 12/12/16 00:00 73 12/11/16 22:55 Nasal Cannula 3.0 32 12/11/16 22:55 Nasal Cannula 3.0 32 12/11/16 21:51 72 122/63 12/11/16 20:22 95 Nasal Cannula 3.0 32 12/11/16 20:22 Nasal Cannula 3.0 32 12/11/16 20:00 98.0 72 20 122/63 95 Nasal Cannula 3.0 12/11/16 20:00 73 12/11/16 19:00 Nasal Cannula 3.0 32 12/11/16 19:00 Nasal Cannula 3.0 32 12/11/16 16:00 97.9 68 20 111/90 91 Nasal Cannula 3.0 12/11/16 16:00 67 12/11/16 15:55 77 18 98 Nasal Cannula 3.0 12/11/16 15:45 70 18 95 Nasal Cannula 3.0 12/11/16 13:33 89 113/56 12/11/16 11:35 89 20 99 Nasal Cannula 3.0 12/11/16 11:25 70 20 95 Nasal Cannula 3.0 12/11/16 11:16 96.6 74 20 113/56 97 Nasal Cannula 3.0 12/11/16 08:00 79 12/11/16 07:59 87 18 99 Nasal Cannula 3.0 12/11/16 07:55 97.2 108 20 115/64 98 Nasal Cannula 3.0 Intake and Output 12/11/16 12/12/16 19:00 07:00 Intake Total 775 ml 825 ml Output Total 400 ml 850 ml Balance 375 ml -25 ml Intake Oral 250 ml IV Total 525 ml 825 ml Output Urine Total 400 ml 850 ml Objective WDWN NAD EOMI reduced breath sounds bilaterally with some rhonchi [id number] without MRG NABS nontender no HSM no CCE nonfocal alert and oriented x 2 on oxygen Current Medications Medications (Trade) Dose Ordered Sig/Larissa Route PRN Reason Start Time Stop Time Status Last Admin Dose Admin Albuterol/ Ipratropium (DuoNeb 0.5-3(2.5)mg/3ml) 3 ml Q4HRT HHN 12/10/16 19:00 12/15/16 18:59 12/11/16 15:45 Amylase/Lipase/ Protease (Pancrease) 1 ea TIAC ORAL 12/11/16 06:30 01/10/17 06:29 12/12/16 05:30 Aspirin (Ecotrin) 81 mg DAILY ORAL 12/11/16 09:00 01/10/17 08:59 12/11/16 08:48 Atorvastatin Calcium (Lipitor) 10 mg BEDTIME ORAL 12/10/16 21:00 01/09/17 20:59 12/11/16 21:51 Carbidopa/Levodopa (Sinemet 25/100) 1 ea THREE TIMES A DAY ORAL 12/11/16 09:00 01/10/17 08:59 12/11/16 18:33 Dextrose/Sodium Chloride (D5 0.45% NS) 1,000 ml @ 75 mls/hr [id number] IV 12/11/16 12:30 01/10/17 12:29 12/12/16 00:47 Diltiazem HCl (Cardizem) 60 mg EVERY 8 HOURS ORAL 12/10/16 22:00 01/09/17 21:59 12/12/16 05:30 Escitalopram Oxalate (Lexapro) 20 mg DAILY ORAL 12/11/16 09:00 01/10/17 08:59 12/11/16 08:48 Finasteride (Proscar) 5 mg DAILY ORAL 12/11/16 09:00 01/10/17 08:59 12/11/16 08:48 Heparin Sodium (Porcine) (Heparin 5000 units/ml) 5,000 units EVERY 12 HOURS SUBQ 12/10/16 21:00 01/09/17 20:59 12/10/16 21:34 Levofloxacin (Levaquin) 250 mg Q24H ORAL 12/11/16 18:00 12/18/16 17:59 12/11/16 18:33 Lorazepam (Ativan) 0.5 mg TIDPRN PRN ORAL For Anxiety 12/10/16 18:00 12/17/16 17:59 Magnesium Hydroxide (Mom) 30 ml DAILYPRN PRN ORAL Constipation 12/10/16 18:00 01/09/17 17:59 Methylprednisolone Sodium Succinate 60 mg 60 mg EVERY 12 HOURS IVP 12/11/16 21:00 01/10/17 20:59 12/11/16 21:51 Montelukast Sodium (Singulair) 10 mg QPM ORAL 12/11/16 16:30 01/10/17 16:29 12/11/16 16:47 Nebivolol (Bystolic) 10 mg DAILY ORAL 12/11/16 09:00 01/10/17 08:59 12/11/16 08:47 Nitroglycerin (Ntg) 0.4 mg Q5M PRN SL Prn Chest Pain 12/10/16 18:00 01/09/17 17:59 Pantoprazole (Protonix) 40 mg DAILY ORAL 12/11/16 09:00 01/10/17 08:59 12/11/16 08:48 Propylthiouracil (Ptu) 50 mg Q8HR ORAL 12/10/16 22:00 01/09/17 21:59 12/12/16 05:30 Tamsulosin HCl (Flomax) 0.4 mg BEDTIME ORAL 12/10/16 21:00 01/09/17 20:59 12/11/16 21:51 Zolpidem Tartrate (Ambien) 5 mg HSPRN PRN ORAL Insomnia 12/10/16 18:00 01/09/17 17:59 TAVO SMITH Dec 12, 2016 07:50
[2016-12-12] MEDS ORDERED: Haloperidol 5mg/ml Inj IM ONE (08:15)
[2016-12-12 08:20] VITALS: BP 145/67
--- NOTE | 2016-12-12 08:30 | General Progress Note ---
Assessment/Plan Problem List: (1) GI bleed ICD Codes: K92.2 - Gastrointestinal hemorrhage, unspecified SNOMED: 56532026 (2) Encephalopathy acute ICD Codes: G93.40 - Encephalopathy, unspecified SNOMED: 1681891 (3) Esophagitis ICD Codes: K20.9 - Esophagitis, unspecified SNOMED: 45234604 (4) COPD (chronic obstructive pulmonary disease) ICD Codes: J44.9 - Chronic obstructive pulmonary disease, unspecified SNOMED: 93324318 Status: unchanged, deteriorating Assessment/Plan dc sinemet and iv steroids resp care o2 ppi rx endoscopy per GI Subjective ROS Limited/Unobtainable: Yes Constitutional: Reports: malaise, weakness HEENT: Reports: no symptoms Cardiovascular: Reports: no symptoms Respiratory: Reports: no symptoms Genitourinary: Reports: no symptoms Neurologic/Psychiatric: Reports: emotional problems, pre-existing deficit Endocrine: Reports: no symptoms Hematologic/Lymphatic: Reports: no symptoms Allergies: Coded Allergies: No Known Allergies (Unverified , 09/26/12) All Systems: reviewed and negative except above Subjective agitated this am. trying to pull out lines. trying to get up unassisted. no bleeding. Objective Last 24 Hour Vital Signs Date Time Temp Pulse Resp B/P Pulse Ox O2 Delivery O2 Flow Rate FiO2 12/12/16 08:20 96.6 74 20 145/67 92 Nasal Cannula 3.0 12/12/16 07:17 Nasal Cannula 12/12/16 07:16 Nasal Cannula 12/12/16 07:16 Nasal Cannula 3.0 32 12/12/16 07:15 94 Nasal Cannula 3.0 32 12/12/16 05:30 68 116/78 12/12/16 04:05 97.0 68 20 116/78 95 Room Air 12/12/16 04:00 65 12/12/16 02:51 Nasal Cannula 3.0 32 12/12/16 02:50 Nasal Cannula 3.0 32 12/12/16 00:05 97.0 71 20 127/61 94 Room Air 12/12/16 00:00 73 12/11/16 22:55 Nasal Cannula 3.0 32 12/11/16 22:55 Nasal Cannula 3.0 32 12/11/16 21:51 72 122/63 12/11/16 20:22 95 Nasal Cannula 3.0 32 12/11/16 20:22 Nasal Cannula 3.0 32 12/11/16 20:00 98.0 72 20 122/63 95 Nasal Cannula 3.0 12/11/16 20:00 73 12/11/16 19:00 Nasal Cannula 3.0 32 12/11/16 19:00 Nasal Cannula 3.0 32 12/11/16 16:00 97.9 68 20 111/90 91 Nasal Cannula 3.0 12/11/16 16:00 67 12/11/16 15:55 77 18 98 Nasal Cannula 3.0 12/11/16 15:45 70 18 95 Nasal Cannula 3.0 12/11/16 13:33 89 113/56 12/11/16 11:35 89 20 99 Nasal Cannula 3.0 12/11/16 11:25 70 20 95 Nasal Cannula 3.0 12/11/16 11:16 96.6 74 20 113/56 97 Nasal Cannula 3.0 Intake and Output 12/11/16 12/12/16 19:00 07:00 Intake Total 775 ml 825 ml Output Total 400 ml 850 ml Balance 375 ml -25 ml Intake Oral 250 ml IV Total 525 ml 825 ml Output Urine Total 400 ml 850 ml Height (Feet): 5 Height (Inches): 10.00 Weight (Pounds): 130 General Appearance: WD/WN, alert Neck: supple Cardiovascular: regular rhythm Respiratory/Chest: lungs clear Abdomen: normal bowel sounds, non tender, soft, no organomegaly Neurologic: steel handler II-XII grossly normal, disoriented CRYSTAL FOSTER Dec 12, 2016 08:30
[2016-12-12] MEDS ORDERED: Haloperidol 5mg/ml Inj IM PRN (08:45)
[2016-12-12] MEDS: Solu-MEDROL 125mg Inj IVP SCH (09:36)
[2016-12-12] MEDS: Aspirin EC 81mg tab ORAL SCH (09:36)
[2016-12-12] MEDS: Heparin 5000 units/ml inj SUBQ SCH (09:38)
[2016-12-12 11:27] LABS: FREE T3 1.2 pg/mL (2.3-4.2)
[2016-12-12 11:31] VITALS: BP 138/58
[2016-12-12] MEDS ORDERED: Haloperidol 1mg tab ORAL PRN (14:00)
--- NOTE | 2016-12-12 15:21 | General Progress Note ---
Assessment/Plan Assessment/Plan Assessment - Atypical CP - N/V - Hematemesis - Thickened esophageal wall on CT - COPD Recommendations - po diet at tolerated - PPI - Elevate HOB - optimize cardiac and pulmonary status - EGD next week once stable - likely Tuesday Subjective Allergies: Coded Allergies: No Known Allergies (Unverified , 09/26/12) Subjective No new complaints discussed with family at bedside Objective Last 24 Hour Vital Signs Date Time Temp Pulse Resp B/P Pulse Ox O2 Delivery O2 Flow Rate FiO2 12/12/16 14:29 76 138/58 12/12/16 12:00 74 12/12/16 11:58 76 18 98 Nasal Cannula 3.0 12/12/16 11:45 71 18 Nasal Cannula 3.0 12/12/16 11:31 97.1 72 20 138/58 93 Nasal Cannula 3.0 12/12/16 08:20 96.6 74 20 145/67 92 Nasal Cannula 3.0 12/12/16 08:00 76 12/12/16 07:17 Nasal Cannula 12/12/16 07:16 Nasal Cannula 12/12/16 07:16 Nasal Cannula 3.0 32 12/12/16 07:15 94 Nasal Cannula 3.0 32 12/12/16 05:30 68 116/78 12/12/16 04:05 97.0 68 20 116/78 95 Room Air 12/12/16 04:00 65 12/12/16 02:51 Nasal Cannula 3.0 32 12/12/16 02:50 Nasal Cannula 3.0 32 12/12/16 00:05 97.0 71 20 127/61 94 Room Air 12/12/16 00:00 73 12/11/16 22:55 Nasal Cannula 3.0 32 12/11/16 22:55 Nasal Cannula 3.0 32 12/11/16 21:51 72 122/63 12/11/16 20:22 95 Nasal Cannula 3.0 32 12/11/16 20:22 Nasal Cannula 3.0 32 12/11/16 20:00 98.0 72 20 122/63 95 Nasal Cannula 3.0 12/11/16 20:00 73 12/11/16 19:00 Nasal Cannula 3.0 32 12/11/16 19:00 Nasal Cannula 3.0 32 12/11/16 16:00 97.9 68 20 111/90 91 Nasal Cannula 3.0 12/11/16 16:00 67 12/11/16 15:55 77 18 98 Nasal Cannula 3.0 12/11/16 15:45 70 18 95 Nasal Cannula 3.0 Intake and Output 12/11/16 12/12/16 19:00 07:00 Intake Total 775 ml 900 ml Output Total 400 ml 850 ml Balance 375 ml 50 ml Intake Oral 250 ml IV Total 525 ml 900 ml Output Urine Total 400 ml 850 ml Laboratory Tests 12/12/16 10:15: Free Thyroxine 0.85L, Free Triiodothyronine 1.2L Height (Feet): 5 Height (Inches): 10.00 Weight (Pounds): 130 Objective Elderly WM NCAT supple CTA except occ ronchi RRR Soft NT ND no edema non focal PEE TINOCO Dec 12, 2016 15:21
[2016-12-12 16:05] VITALS: BP 132/67
[2016-12-12] MEDS: Montelukast 10mg tablet ORAL SCH (17:03)
[2016-12-12 20:00] VITALS: BP 115/56
[2016-12-12] MEDS ORDERED: D5 1/2NS 1000ml IV ONE (20:36)
[2016-12-12] MEDS: Tamsulosin 0.4mg cap ORAL SCH (21:13)
--- NOTE | 2016-12-12 21:17 | Cardiology Report ---
APPROVED REPORT EKG Measurement Heart [id number] Normal sinus rhythm Left axis deviation Septal infarct, age undetermined Inferior infarct, age undetermined Abnormal ECG
--- NOTE | 2016-12-12 23:00 | Progress Note ---
DATE: 12/11/2016 CARDIOLOGY PROGRESS NOTE: SUBJECTIVE: The patient has less discomfort in his chest, who has difficulty with meals and an abnormal CT of the abdomen and chest was noted. OBJECTIVE: VITAL SIGNS: The patient has a blood pressure 111/90, pulse 68, respiratory 18 to 20, afebrile, and oxygen saturation on three liters is 91 to 98%. HEENT: Oropharynx clear. No thrush. NECK: Supple with no adenopathy. Jugular venous pressure grossly normal. LUNGS: With coarse breath sounds and rhonchi. No wheezing. Chest wall has reproducible pain. CARDIAC: Regular rhythm and rate. Normal S1, S2 with a fourth heart sound. ABDOMEN: Soft and nontender. EXTREMITIES: Without edema. LABORATORY DATA: White count 9 and hemoglobin 13.6. Sodium 140, potassium 5.1, bicarbonate 30, BUN 46, and creatinine 0.7. Free T4 and free T3 are low. Troponin is negative. IMPRESSION: 1. Dysphagia . 2. Chest pain, noncardiac. 3. Chronic obstructive pulmonary disease exacerbation, improved. 4. Graves disease on Tapazole may need to adjust dosing in view of T3-T4 levels. 5. Hypertension, controlled. PLAN: Await endoscopy. Consider Endocrine evaluation. Cautious use of inhaled bronchodilators. No current role for diuresis. Hold aspirin in view of upcoming endoscopic procedure. Farhad Esparza M.D. DR: Casa JOB#: [id number] CC:
--- NOTE | 2016-12-12 23:29 | Progress Note ---
DATE: 12/12/2016 SUBJECTIVE: The patient has some agitation and confusion, required Haldol early this morning. No shortness of breath. Some congestion and cough. No nausea or vomiting. No complaints of chest pain. OBJECTIVE: VITAL SIGNS: Blood pressure is 138/58, pulse 76, respiratory rate 18, and afebrile. Oxygen saturation is 98% on 3 L nasal cannula. CHEST: No accessory muscle use. Coarse breath sounds and rhonchi. Chest wall with no elicited tenderness. HEART: Regular rhythm and rate. Normal S1 and S2. ABDOMEN: Soft. EXTREMITIES: No edema. IMPRESSION: 1. Noncardiac chest pain. 2. Paroxysmal atrial ectopy, suppressed with diltiazem. 3. Diastolic dysfunction with no signs of acute congestive heart failure. 4. Dysphagia with abnormal esophageal imaging and CT scan. 5. Chronic obstructive pulmonary disease exacerbation, improved. 6. Hypoxia, improving. 7. Graves disease, on propylthiouracil with low thyroid function test. PLAN: Reassess propylthiouracil dose. Stable for endoscopy. Aspirin has been on hold. Continue diltiazem. Maintenance hydration while NPO. Taper oxygen as delicately as able. Continue inhaled bronchodilators. Steroid taper. Farhad Esparza M.D. DR: TANNER JOB#: [id number] CC:
[2016-12-13 00:49] VITALS: BP 132/46
[2016-12-13] MEDS: DuoNeb 0.5-3(2.5)mg/3ml neb HHN SCH ×6 (03:00→23:00)
[2016-12-13 04:02] VITALS: BP 146/80
[2016-12-13] MEDS: D5 1/2NS 1,000 ML IV SCH ×2 (05:28→17:16)
[2016-12-13] MEDS: Pancrease Cap ORAL SCH ×3 (05:29→16:02)
[2016-12-13] MEDS: Propylthiouracil 50mg tab ORAL SCH ×3 (05:30→21:17)
[2016-12-13 08:00] VITALS: BP 134/58
--- NOTE | 2016-12-13 08:36 | General Progress Note ---
Assessment/Plan Problem List: (1) GI bleed ICD Codes: K92.2 - Gastrointestinal hemorrhage, unspecified SNOMED: 58706910 (2) Encephalopathy acute ICD Codes: G93.40 - Encephalopathy, unspecified SNOMED: 3046128 (3) Esophagitis ICD Codes: K20.9 - Esophagitis, unspecified SNOMED: 85172213 (4) COPD (chronic obstructive pulmonary disease) ICD Codes: J44.9 - Chronic obstructive pulmonary disease, unspecified SNOMED: 03720868 Status: stable, progressing Assessment/Plan dc sinemet and iv steroids resp care o2 ppi rx endoscopy per GI pos as tolerated anxiolytics as needed Subjective ROS Limited/Unobtainable: Yes Constitutional: Reports: malaise, weakness HEENT: Reports: no symptoms Cardiovascular: Reports: no symptoms Respiratory: Reports: cough Gastrointestinal/Abdominal: Reports: no symptoms Genitourinary: Reports: no symptoms Neurologic/Psychiatric: Reports: anxiety, pre-existing deficit Endocrine: Reports: no symptoms Hematologic/Lymphatic: Reports: no symptoms Allergies: Coded Allergies: No Known Allergies (Unverified , 09/26/12) All Systems: reviewed and negative except above Subjective less agitated this am. trying to pull out lines. trying to get up unassisted. no bleeding. no melena or brbpr. Objective Last 24 Hour Vital Signs Date Time Temp Pulse Resp B/P Pulse Ox O2 Delivery O2 Flow Rate FiO2 12/13/16 08:00 97.7 86 20 134/58 95 Nasal Cannula 2.0 12/13/16 05:30 79 146/80 12/13/16 04:02 98.1 79 19 146/80 97 Room Air 12/13/16 04:00 84 12/13/16 03:10 78 18 99 Nasal Cannula 3.0 12/13/16 03:00 82 18 94 Nasal Cannula 3.0 12/13/16 00:49 98.8 69 20 132/46 95 Room Air 12/13/16 00:00 74 12/12/16 23:47 89 18 98 Nasal Cannula 3.0 12/12/16 23:37 86 18 95 Nasal Cannula 3.0 12/12/16 21:14 72 115/56 12/12/16 20:00 98.2 72 18 115/56 96 Nasal Cannula 3.0 12/12/16 20:00 69 12/12/16 18:35 82 18 98 Nasal Cannula 3.0 12/12/16 18:32 Nasal Cannula 3.0 32 12/12/16 18:32 95 Nasal Cannula 3.0 32 12/12/16 18:32 80 18 95 Nasal Cannula 3.0 12/12/16 16:05 97.5 73 18 132/67 96 Nasal Cannula 12/12/16 16:00 68 12/12/16 15:35 74 18 98 Nasal Cannula 3.0 12/12/16 15:27 73 18 Nasal Cannula 3.0 12/12/16 14:29 76 138/58 12/12/16 12:00 74 12/12/16 11:58 76 18 98 Nasal Cannula 3.0 12/12/16 11:45 71 18 Nasal Cannula 3.0 12/12/16 11:31 97.1 72 20 138/58 93 Nasal Cannula 3.0 Intake and Output 12/12/16 12/13/16 19:00 07:00 Intake Total 1170 ml 1050 ml Output Total 350 ml 1400 ml Balance 820 ml -350 ml Intake Oral 270 ml 300 ml IV Total 900 ml 750 ml Output Urine Total 350 ml 1400 ml Laboratory Tests 12/12/16 10:15: Free Thyroxine 0.85L, Free Triiodothyronine 1.2L 12/13/16 05:00: Thyroid Stimulating Hormone (TSH) 1.960 Height (Feet): 5 Height (Inches): 10.00 Weight (Pounds): 130 General Appearance: WD/WN, alert, confused EENT: PERRL/EOMI, normal ENT inspection Neck: supple Cardiovascular: regular rhythm Respiratory/Chest: lungs clear, normal breath sounds, no respiratory distress, no accessory muscle use Abdomen: normal bowel sounds, non tender, soft, no organomegaly, no mass Edema: no edema noted Arm (L), no edema noted Arm (R), no edema noted Leg (L), no edema noted Leg (R), no edema noted Pedal (L), no edema noted Pedal (R), no edema noted Generalized CRYSTAL FOSTER Dec 13, 2016 08:35
[2016-12-13 08:42] LABS: LYMPHOCYTES % (AUTO) 2.7 % (20.0-45.0); MEAN CORPUSCULAR HEMOGLOBIN 30.2 PG (27.0-31.0); MEAN CORPUSCULAR HGB CONC 32.7 G/DL (32.0-36.0); MEAN CORPUSCULAR VOLUME 92 FL (80-99); MEAN PLATELET VOLUME 6.8 FL (6.5-10.1); MONOCYTES % (AUTO) 16.8 % (1.0-10.0); NEUTROPHILS % (AUTO) 79.5 % (45.0-75.0); PLATELET COUNT 198 K/UL (150-450); RED BLOOD COUNT 4.33 M/UL (4.70-6.10); RED CELL DISTRIBUTION WIDTH 12.2 % (11.6-14.8); WHITE BLOOD COUNT 10.2 K/UL (4.8-10.8)
[2016-12-13 08:48] LABS: ALANINE AMINOTRANSFERASE 22 U/L (3-41); ALBUMIN/GLOBULIN RATIO 2.1 (1.0-2.7); ANION GAP 15 (5-15); ASPARTATE AMINO TRANSFERASE 14 U/L (5-40); CALCIUM 8.5 mg/dL (8.6-10.2); CARBON DIOXIDE 28 mEQ/L (20-30); CHLORIDE 94 mEQ/L (98-107); CREATININE 0.7 mg/dL (0.7-1.2); HEMOLYSIS 4; POTASSIUM 4.1 mEQ/L (3.4-4.9); SODIUM 137 mEQ/L (135-145); TOTAL PROTEIN 5.1 g/dL (6.6-8.7)
[2016-12-13] MEDS: Solu-MEDROL 125mg Inj IVP SCH (09:28)
[2016-12-13 11:18] VITALS: BP 124/50
--- NOTE | 2016-12-13 11:18 | Pulmonology Progress Note ---
Assessment/Plan Assessment/Plan PROBLEM LIST: 1. Chronic obstructive pulmonary disease with acute exacerbation. 2. Hypoxemic respiratory failure 3. Tracheobronchitis. 4. Urinary tract infection. 5. Benign prostatic hyperplasia 6. Hypertension. 7. Hyperlipidemia. 8. Aortic Stenosis 9. History of pancreatic insufficiency. 10. Grave's disease 11. CHF 12. GIB possible 13. chest pain 14. possible esophagitis TREATMENT PLAN: respiratory care GI follow up noted for endoscopy cards noted and reviewed back on Iv solumedrol; taper to off and monitor oxygen care monitor for change stabilize close follow up and monitor impression, plan, and exam edited and reviewed in detail care discussed with RN Subjective Allergies: Coded Allergies: No Known Allergies (Unverified , 09/26/12) Subjective cards and gi noted for endoscopy Objective Last 24 Hour Vital Signs Date Time Temp Pulse Resp B/P Pulse Ox O2 Delivery O2 Flow Rate FiO2 12/13/16 08:00 97.7 86 20 134/58 95 Nasal Cannula 2.0 12/13/16 07:38 94 12/13/16 07:30 88 20 98 Nasal Cannula 3.0 32 12/13/16 07:16 32 12/13/16 07:16 94 Nasal Cannula 3.0 32 12/13/16 07:16 Nasal Cannula 3.0 32 12/13/16 07:16 87 21 96 Nasal Cannula 3.0 32 12/13/16 05:30 79 146/80 12/13/16 04:02 98.1 79 19 146/80 97 Room Air 12/13/16 04:00 84 12/13/16 03:10 78 18 99 Nasal Cannula 3.0 12/13/16 03:00 82 18 94 Nasal Cannula 3.0 12/13/16 00:49 98.8 69 20 132/46 95 Room Air 12/13/16 00:00 74 12/12/16 23:47 89 18 98 Nasal Cannula 3.0 12/12/16 23:37 86 18 95 Nasal Cannula 3.0 12/12/16 21:14 72 115/56 12/12/16 20:00 98.2 72 18 115/56 96 Nasal Cannula 3.0 12/12/16 20:00 69 12/12/16 18:35 82 18 98 Nasal Cannula 3.0 12/12/16 18:32 Nasal Cannula 3.0 32 12/12/16 18:32 95 Nasal Cannula 3.0 32 12/12/16 18:32 80 18 95 Nasal Cannula 3.0 12/12/16 16:05 97.5 73 18 132/67 96 Nasal Cannula 12/12/16 16:00 68 12/12/16 15:35 74 18 98 Nasal Cannula 3.0 12/12/16 15:27 73 18 Nasal Cannula 3.0 12/12/16 14:29 76 138/58 12/12/16 12:00 74 12/12/16 11:58 76 18 98 Nasal Cannula 3.0 12/12/16 11:45 71 18 Nasal Cannula 3.0 12/12/16 11:31 97.1 72 20 138/58 93 Nasal Cannula 3.0 Intake and Output 12/12/16 12/13/16 19:00 07:00 Intake Total 1170 ml 1050 ml Output Total 350 ml 1400 ml Balance 820 ml -350 ml Intake Oral 270 ml 300 ml IV Total 900 ml 750 ml Output Urine Total 350 ml 1400 ml Objective WDWN NAD EOMI reduced breath sounds bilaterally with some rhonchi [id number] without MRG NABS nontender no HSM no CCE nonfocal alert and oriented x 2 on oxygen Laboratory Tests 12/13/16 05:00: White Blood Count 10.2, Red Blood Count 4.33L, Hemoglobin 13.1L, Hematocrit 40.0L, Mean Corpuscular Volume 92, Mean Corpuscular Hemoglobin 30.2, Mean Corpuscular Hemoglobin Concent 32.7, Red Cell Distribution Width 12.2, Platelet Count 198, Mean Platelet Volume 6.8, Neutrophils (%) (Auto) 79.5H, Lymphocytes ( %) (Auto) 2.7L, Monocytes (%) (Auto) 16.8H, Eosinophils (%) (Auto) 0.0, Basophils (%) (Auto) 1.0, Sodium Level 137, Potassium Level 4.1, Chloride Level 94L, Carbon Dioxide Level 28, Anion Gap 15, Blood Urea Nitrogen 20, Creatinine 0.7, Estimat Glomerular Filtration Rate , Glucose Level 162H, Calcium Level 8.5L , Total Bilirubin 0.4, Aspartate Amino Transf (AST/SGOT) 14, Alanine Aminotransferase (ALT/SGPT) 22, Alkaline Phosphatase 52, Total Protein 5.1L, Albumin 3.5, Globulin 1.6, Albumin/Globulin Ratio 2.1, Thyroid Stimulating Hormone (TSH) 1.960 Current Medications Medications (Trade) Dose Ordered Sig/Larissa Route PRN Reason Start Time Stop Time Status Last Admin Dose Admin Albuterol/ Ipratropium (DuoNeb 0.5-3(2.5)mg/3ml) 3 ml Q4HRT HHN 12/10/16 19:00 12/15/16 18:59 12/13/16 10:50 Amylase/Lipase/ Protease (Pancrease) 1 ea TIAC ORAL 12/11/16 06:30 01/10/17 06:29 12/13/16 05:29 Atorvastatin Calcium (Lipitor) 10 mg BEDTIME ORAL 12/10/16 21:00 01/09/17 20:59 12/12/16 21:12 Dextrose/Sodium Chloride (D5 0.45% NS) 1,000 ml @ 75 mls/hr [id number] IV 12/11/16 12:30 01/10/17 12:29 12/13/16 05:28 Diltiazem HCl (Cardizem) 60 mg EVERY 8 HOURS ORAL 12/10/16 22:00 01/09/17 21:59 12/13/16 05:30 Escitalopram Oxalate (Lexapro) 20 mg DAILY ORAL 12/11/16 09:00 01/10/17 08:59 12/13/16 09:28 Finasteride (Proscar) 5 mg DAILY ORAL 12/11/16 09:00 01/10/17 08:59 12/13/16 09:28 Haloperidol Lactate (Haldol) 1 mg Q6H PRN IM Agitation 12/12/16 08:45 01/11/17 08:44 Levofloxacin (Levaquin) 250 mg Q24H ORAL 12/11/16 18:00 12/18/16 17:59 12/12/16 17:03 Lorazepam (Ativan) 0.5 mg TIDPRN PRN ORAL For Anxiety 12/10/16 18:00 12/17/16 17:59 12/13/16 05:30 Magnesium Hydroxide (Mom) 30 ml DAILYPRN PRN ORAL Constipation 12/10/16 18:00 01/09/17 17:59 Methylprednisolone Sodium Succinate (Solu-MEDROL) 60 mg DAILY IVP 12/12/16 10:00 01/11/17 09:59 12/13/16 09:28 Montelukast Sodium (Singulair) 10 mg QPM ORAL 12/11/16 16:30 01/10/17 16:29 12/12/16 17:03 Nebivolol (Bystolic) 10 mg DAILY ORAL 12/11/16 09:00 01/10/17 08:59 12/13/16 09:28 Nitroglycerin (Ntg) 0.4 mg Q5M PRN SL Prn Chest Pain 12/10/16 18:00 01/09/17 17:59 Pantoprazole (Protonix) 40 mg DAILY ORAL 12/11/16 09:00 01/10/17 08:59 12/13/16 09:27 Propylthiouracil 50 mg 50 mg Q8HR ORAL 12/10/16 22:00 01/09/17 21:59 12/13/16 05:30 Tamsulosin HCl (Flomax) 0.4 mg BEDTIME ORAL 12/10/16 21:00 01/09/17 20:59 12/12/16 21:13 Zolpidem Tartrate (Ambien) 5 mg HSPRN PRN ORAL Insomnia 12/10/16 18:00 01/09/17 17:59 TAVO SMITH Dec 13, 2016 11:18
[2016-12-13 16:00] VITALS: BP 120/85
[2016-12-13] MEDS: Montelukast 10mg tablet ORAL SCH (16:02)
[2016-12-13 20:00] VITALS: BP 139/85
[2016-12-13] MEDS: Tamsulosin 0.4mg cap ORAL SCH (21:16)
--- NOTE | 2016-12-13 22:29 | General Progress Note ---
Assessment/Plan Assessment/Plan Assessment - Atypical CP - N/V - Hematemesis - Thickened esophageal wall on CT - COPD Recommendations - po diet at tolerated - PPI - Elevate HOB - optimize cardiac and pulmonary status - EGD Tuesday Subjective Allergies: Coded Allergies: No Known Allergies (Unverified , 09/26/12) Subjective No new complaints discussed with family at bedside eating better Objective Last 24 Hour Vital Signs Date Time Temp Pulse Resp B/P Pulse Ox O2 Delivery O2 Flow Rate FiO2 12/13/16 21:16 84 120/85 12/13/16 20:00 97.0 85 21 139/85 95 Nasal Cannula 5.0 12/13/16 19:31 84 20 100 Nasal Cannula 3.0 32 12/13/16 19:29 80 20 97 Nasal Cannula 3.0 32 12/13/16 19:29 Nasal Cannula 3.0 32 12/13/16 19:29 97 Nasal Cannula 3.0 32 12/13/16 16:00 80 12/13/16 16:00 97.9 84 20 120/85 95 Nasal Cannula 5.0 12/13/16 15:05 86 20 100 Nasal Cannula 2.0 32 12/13/16 15:05 89 19 100 Nasal Cannula 2.0 32 12/13/16 15:05 32 12/13/16 13:52 81 124/50 12/13/16 11:50 78 12/13/16 11:18 96.9 82 20 124/50 100 Nasal Cannula 2.0 12/13/16 11:03 88 21 97 Nasal Cannula 2.0 32 12/13/16 10:50 32 12/13/16 10:50 85 19 96 Nasal Cannula 2.0 32 12/13/16 08:00 97.7 86 20 134/58 95 Nasal Cannula 2.0 12/13/16 07:38 94 12/13/16 07:30 88 20 98 Nasal Cannula 3.0 32 12/13/16 07:16 32 12/13/16 07:16 94 Nasal Cannula 3.0 32 12/13/16 07:16 Nasal Cannula 3.0 32 12/13/16 07:16 87 21 96 Nasal Cannula 3.0 32 12/13/16 05:30 79 146/80 12/13/16 04:02 98.1 79 19 146/80 97 Room Air 12/13/16 04:00 84 12/13/16 03:10 78 18 99 Nasal Cannula 3.0 12/13/16 03:00 82 18 94 Nasal Cannula 3.0 12/13/16 00:49 98.8 69 20 132/46 95 Room Air 12/13/16 00:00 74 12/12/16 23:47 89 18 98 Nasal Cannula 3.0 12/12/16 23:37 86 18 95 Nasal Cannula 3.0 Intake and Output 12/12/16 12/13/16 18:59 06:59 Intake Total 1170 ml 1125 ml Output Total 350 ml 1400 ml Balance 820 ml -275 ml Intake Oral 270 ml 300 ml IV Total 900 ml 825 ml Output Urine Total 350 ml 1400 ml Laboratory Tests 12/13/16 05:00: White Blood Count 10.2, Red Blood Count 4.33L, Hemoglobin 13.1L, Hematocrit 40.0L, Mean Corpuscular Volume 92, Mean Corpuscular Hemoglobin 30.2, Mean Corpuscular Hemoglobin Concent 32.7, Red Cell Distribution Width 12.2, Platelet Count 198, Mean Platelet Volume 6.8, Neutrophils (%) (Auto) 79.5H, Lymphocytes ( %) (Auto) 2.7L, Monocytes (%) (Auto) 16.8H, Eosinophils (%) (Auto) 0.0, Basophils (%) (Auto) 1.0, Sodium Level 137, Potassium Level 4.1, Chloride Level 94L, Carbon Dioxide Level 28, Anion Gap 15, Blood Urea Nitrogen 20, Creatinine 0.7, Estimat Glomerular Filtration Rate , Glucose Level 162H, Calcium Level 8.5L , Total Bilirubin 0.4, Aspartate Amino Transf (AST/SGOT) 14, Alanine Aminotransferase (ALT/SGPT) 22, Alkaline Phosphatase 52, Total Protein 5.1L, Albumin 3.5, Globulin 1.6, Albumin/Globulin Ratio 2.1, Thyroid Stimulating Hormone (TSH) 1.960 Height (Feet): 5 Height (Inches): 10.00 Weight (Pounds): 130 Objective Elderly WM NCAT supple CTA except occ ronchi RRR Soft NT ND no edema non focal PEE TINOCO Dec 13, 2016 22:29
[2016-12-14] VITALS (9 sets, daily range): BP systolic 96–149; BP diastolic 42–74
--- NOTE | 2016-12-14 00:59 | Progress Note ---
DATE: 12/13/2016 CARDIOLOGY PROGRESS NOTE SUBJECTIVE: The patient has confusion and agitation at times. He has intermittent requirements of BiPAP support. Overall, his respiratory parameters have improved. He has not had any new bleeding signs. OBJECTIVE: VITALS: Blood pressure 134/58, pulse 86, and respirations 20. NECK: Supple. LUNGS: With coarse breath sounds. CARDIAC: Regular rhythm and rate. Normal S1 and S2. ABDOMEN: Soft. EXTREMITIES: No edema. IMPRESSION: 1. Esophagitis. 2. Encephalopathy. 3. Chronic obstructive pulmonary disease. 4. Paroxysmal atrial ectopy. 5. Noncardiac chest pain. PLAN: 1. Steroids discontinued. 2. Monitor hemoglobin. 3. Respiratory hygiene. 4. Diagnostic endoscopy pending. Farhad Esparza M.D. DR: SLIM JOB#: [id number] CC:
[2016-12-14] MEDS: DuoNeb 0.5-3(2.5)mg/3ml neb HHN SCH ×5 (03:55→20:57)
--- NOTE | 2016-12-14 05:54 | General Progress Note ---
Assessment/Plan Problem List: (1) GI bleed ICD Codes: K92.2 - Gastrointestinal hemorrhage, unspecified SNOMED: 72545277 (2) Encephalopathy acute ICD Codes: G93.40 - Encephalopathy, unspecified SNOMED: 7229192 (3) Esophagitis ICD Codes: K20.9 - Esophagitis, unspecified SNOMED: 60521996 (4) COPD (chronic obstructive pulmonary disease) ICD Codes: J44.9 - Chronic obstructive pulmonary disease, unspecified SNOMED: 64208862 Status: stable, progressing Assessment/Plan steroids resp care o2 ppi rx endoscopy per GI pos as tolerated anxiolytics as needed Subjective ROS Limited/Unobtainable: No Constitutional: Reports: malaise, weakness HEENT: Reports: no symptoms Cardiovascular: Reports: no symptoms Respiratory: Reports: shortness of breath Gastrointestinal/Abdominal: Reports: vomiting Genitourinary: Reports: no symptoms Neurologic/Psychiatric: Reports: pre-existing deficit, tremors Endocrine: Reports: no symptoms Hematologic/Lymphatic: Reports: no symptoms Allergies: Coded Allergies: No Known Allergies (Unverified , 09/26/12) All Systems: reviewed and negative except above Subjective less agitated this am.no melena or brbpr. gi noted, Objective Last 24 Hour Vital Signs Date Time Temp Pulse Resp B/P Pulse Ox O2 Delivery O2 Flow Rate FiO2 12/14/16 04:00 81 12/14/16 04:00 97.7 80 20 149/74 94 Room Air 12/14/16 03:45 82 20 100 Nasal Cannula 3.0 32 12/14/16 03:30 78 20 95 Nasal Cannula 3.0 32 12/14/16 00:00 97.7 74 16 106/60 93 Nasal Cannula 2.0 12/14/16 00:00 75 12/13/16 23:40 88 20 100 Nasal Cannula 3.0 32 12/13/16 23:39 80 20 96 Nasal Cannula 3.0 32 12/13/16 21:16 84 120/85 12/13/16 20:00 88 12/13/16 20:00 97.0 85 21 139/85 95 Nasal Cannula 5.0 12/13/16 19:31 84 20 100 Nasal Cannula 3.0 32 12/13/16 19:29 80 20 97 Nasal Cannula 3.0 32 12/13/16 19:29 Nasal Cannula 3.0 32 12/13/16 19:29 97 Nasal Cannula 3.0 32 12/13/16 16:00 80 12/13/16 16:00 97.9 84 20 120/85 95 Nasal Cannula 5.0 12/13/16 15:05 86 20 100 Nasal Cannula 2.0 32 12/13/16 15:05 89 19 100 Nasal Cannula 2.0 32 12/13/16 15:05 32 12/13/16 13:52 81 124/50 12/13/16 11:50 78 12/13/16 11:18 96.9 82 20 124/50 100 Nasal Cannula 2.0 12/13/16 11:03 88 21 97 Nasal Cannula 2.0 32 12/13/16 10:50 32 12/13/16 10:50 85 19 96 Nasal Cannula 2.0 32 12/13/16 08:00 97.7 86 20 134/58 95 Nasal Cannula 2.0 12/13/16 07:38 94 12/13/16 07:30 88 20 98 Nasal Cannula 3.0 32 12/13/16 07:16 32 12/13/16 07:16 94 Nasal Cannula 3.0 32 12/13/16 07:16 Nasal Cannula 3.0 32 12/13/16 07:16 87 21 96 Nasal Cannula 3.0 32 Intake and Output 12/13/16 12/14/16 19:00 07:00 Intake Total 1170 ml 925 ml Output Total 300 ml 700 ml Balance 870 ml 225 ml Intake Oral 420 ml 100 ml IV Total 750 ml 825 ml Output Urine Total 300 ml 700 ml Height (Feet): 5 Height (Inches): 10.00 Weight (Pounds): 130 Objective General Appearance: WD/WN, alert, confused EENT: PERRL/EOMI, normal ENT inspection Neck: supple Cardiovascular: regular rhythm Respiratory/Chest: lungs clear, normal breath sounds, no respiratory distress, no accessory muscle use Abdomen: normal bowel sounds, non tender, soft, no organomegaly, no mass Edema: no edema noted Arm (L), no edema noted Arm (R), no edema noted Leg (L), no edema noted Leg (R), no edema noted Pedal (L), no edema noted Pedal (R), no edema noted Generalized CRYSTAL FOSTER Dec 14, 2016 05:54
[2016-12-14] MEDS: Propylthiouracil 50mg tab ORAL SCH ×3 (06:00→21:18)
[2016-12-14] MEDS: Pancrease Cap ORAL SCH ×3 (06:14→16:32)
[2016-12-14] MEDS: D5 1/2NS 1,000 ML IV SCH ×2 (06:15→20:04)
[2016-12-14] MEDS ORDERED: Propofol 10mg/ml 20ml IV ONE (07:00)
[2016-12-14] MEDS ORDERED: Alfentanil 2ml Inj ONE (07:00)
[2016-12-14] MEDS ORDERED: LR 1000ml ONE (07:00)
[2016-12-14] MEDS ORDERED: Midazolam 2mg/2ml Inj ONE (07:00)
[2016-12-14] MEDS ORDERED: Lidocaine 1% MPF 10mg/ml 5ml ONE (07:00)
[2016-12-14] MEDS ORDERED: NS 550ML IV ONE (07:05)
[2016-12-14] MEDS ORDERED: LR 1000ml 1,000 ML IVLG SCH (07:07)
--- NOTE | 2016-12-14 07:07 | Anethesia Preoperative Eval ---
Anesthesia Pre-op PMH/ROS General Date of Evaluation: Dec 14, 2016 Time of Evaluation: 06:56 ASA Score: ASA 4 Mallampati Score Class I : Soft palate, uvula, fauces, pillars visible Class II: Soft palate, uvula, fauces visible Class III: Soft palate, base of uvula visible Class IV: Only hard plate visible Mallampati Classification: Class III Surgeon: James Diagnosis: Abd Pain Surgical Procedure: EGD Anesthesia History: none Family History: no anesthesia problems Allergies: Coded Allergies: No Known Allergies (Unverified , 09/26/12) Medications: see eMAR Past Medical History Cardiovascular: Reports: CAD, HTN, other - HL Pulmonary: Reports: COPD, other - TB, Empyhsema, Home 02 Anesthesia Pre-op Phys. Exam Physician Exam Last Vital Signs Date Time Temp Pulse Resp B/P Pulse Ox O2 Delivery O2 Flow Rate FiO2 12/14/16 04:00 81 12/14/16 04:00 97.7 20 149/74 94 Room Air 12/14/16 03:45 3.0 32 Constitutional: NAD Neurologic: CN 2-12 intact Cardiovascular: RRR Respiratory: CTA Gastrointestinal: S/NT/ND Airway Exam Mallampati Score: Class III MO: limited ROM: limited Teeth: missing Anesthesia Pre-op A/P Risk Assessment & Plan Assessment: ASA 4 Plan: GA Status Change Before Surgery: Mann Waite MD Dec 14, 2016 07:07
--- NOTE | 2016-12-14 07:08 | Pre-Procedure Note/Attestation ---
Pre-Procedure Note/Attestation Complete Prior to Procedure Planned Procedure: not applicable Procedure Narrative: egd Indications for Procedure Pre-Operative Diagnosis: dysphagia, vomiting Attestation I attest that I discussed the nature of the procedure; its benefits; risks and complications; and alternatives (and the risks and benefits of such alternatives ), prior to the procedure, with the patient (or the patient's legal sales representative facility services). I attest that, if there was a reasonable possibility of needing a blood transfusion, the patient (or the patient's legal sales representative facility services) was given the [facility] standardized written summary, pursuant to the [place] Blood Safety Act ([place] Health and Safety Code # 1645, as amended). I attest that I re-evaluated the patient just prior to the surgery and that there has been no change in the patient's H&P, except as documented below: PEE TINOCO Dec 14, 2016 07:08
[2016-12-14] MEDS ORDERED: Oxycodone/Acetaminophen 5-325 ORAL PRN (07:15)
[2016-12-14] MEDS ORDERED: Hydromorphone 0.5mg/0.5ml inj IVP PRN (07:15)
[2016-12-14] MEDS ORDERED: Meperidine 25mg/ml Inj IV PRN (07:15)
[2016-12-14] MEDS ORDERED: Metoclopramide 10mg/2ml Inj IVP PRN (07:15)
[2016-12-14] MEDS ORDERED: Midazolam 2mg/2ml Inj IVP PRN (07:15)
[2016-12-14] MEDS ORDERED: DiphenhydrAMINE 50mg/ml Inj IVP PRN (07:15)
[2016-12-14] MEDS ORDERED: Norco 5mg/325mg tab ORAL PRN (07:15)
[2016-12-14] MEDS ORDERED: Ketorolac 60mg Inj IV PRN (07:15)
[2016-12-14] MEDS ORDERED: Atropine Inj 1mg/10ml Syr IV PRN (07:15)
[2016-12-14] MEDS ORDERED: Norco 7.5mg/325mg tab ORAL PRN (07:15)
[2016-12-14] MEDS ORDERED: fentaNYL 100 mcg/2 mL IV PRN (07:15)
[2016-12-14] MEDS ORDERED: LORazepam Inj 2mg/ml 1ml IV PRN (07:15)
[2016-12-14] MEDS ORDERED: Ketorolac 30mg Inj IV PRN (07:15)
[2016-12-14] MEDS ORDERED: Labetalol 5mg/ml 20ml vial IV PRN (07:15)
--- NOTE | 2016-12-14 07:15 | Immediate Post-Op Evaluation ---
Immediate Post-Op Evalulation Immediate Post-Op Evalulation Procedure: EGD Date of Evaluation: Dec 14, 2016 Time of Evaluation: 07:43 IV Fluids: 100 LR Blood Products: 0 Estimated Blood Loss: 2 Urinary Output: 0 Blood Pressure Systolic: 108 Blood Pressure Diastolic: 51 Pulse Rate: 72 Respiratory Rate: 16 O2 Sat by Pulse Oximetry: 100 Temperature (Fahrenheit): 98.8 Pain Score (1-10): 1 Nausea: No Vomiting: No Complications 0 Patient Status: awake, reacts, patent, none Hydration Status: adequate Mann Yates MD Dec 14, 2016 07:15
--- NOTE | 2016-12-14 07:16 | 48 Hour Post Anesthesia Eval ---
Post Anesthesia Evaluation Procedure: EGD Date of Evaluation: Dec 14, 2016 Time of Evaluation: 09:53 Blood Pressure Systolic: 134 0: 65 Pulse Rate: 74 Respiratory Rate: 18 Temperature (Fahrenheit): 98.8 O2 Sat by Pulse Oximetry: 96 Airway: patent Nausea: No Vomiting: No Pain Intensity: 1 Hydration Status: adequate Cardiopulmonary Status: Stable Mental Status/LOC: patient returned to baseline Follow-up Care/Observations: 0 Post-Anesthesia Complications: 0 Follow-up care needed: N/A Mann Yates MD Dec 14, 2016 07:16
--- NOTE | 2016-12-14 07:27 | General Progress Note ---
Assessment/Plan Assessment/Plan Assessment - Atypical CP - N/V - Hematemesis - Thickened esophageal wall on CT - COPD - hypothyroid on PTU Recommendations - EGD today - elevate HOB - ? reduce PTU EGD ADDENDUM Findings: GERD with erosions - continue PPI Kaylyn esophagitis - Rx Nystatin Subjective Allergies: Coded Allergies: No Known Allergies (Unverified , 09/26/12) Subjective No new problems NPO for EGD TFT noted - low T3 T4 Objective Last 24 Hour Vital Signs Date Time Temp Pulse Resp B/P Pulse Ox O2 Delivery O2 Flow Rate FiO2 12/14/16 04:00 81 12/14/16 04:00 97.7 80 20 149/74 94 Room Air 12/14/16 03:45 82 20 100 Nasal Cannula 3.0 32 12/14/16 03:30 78 20 95 Nasal Cannula 3.0 32 12/14/16 00:00 97.7 74 16 106/60 93 Nasal Cannula 2.0 12/14/16 00:00 75 12/13/16 23:40 88 20 100 Nasal Cannula 3.0 32 12/13/16 23:39 80 20 96 Nasal Cannula 3.0 32 12/13/16 21:16 84 120/85 12/13/16 20:00 88 12/13/16 20:00 97.0 85 21 139/85 95 Nasal Cannula 5.0 12/13/16 19:31 84 20 100 Nasal Cannula 3.0 32 12/13/16 19:29 80 20 97 Nasal Cannula 3.0 32 12/13/16 19:29 Nasal Cannula 3.0 32 12/13/16 19:29 97 Nasal Cannula 3.0 32 12/13/16 16:00 80 12/13/16 16:00 97.9 84 20 120/85 95 Nasal Cannula 5.0 12/13/16 15:05 86 20 100 Nasal Cannula 2.0 32 12/13/16 15:05 89 19 100 Nasal Cannula 2.0 32 12/13/16 15:05 32 12/13/16 13:52 81 124/50 12/13/16 11:50 78 12/13/16 11:18 96.9 82 20 124/50 100 Nasal Cannula 2.0 12/13/16 11:03 88 21 97 Nasal Cannula 2.0 32 12/13/16 10:50 32 12/13/16 10:50 85 19 96 Nasal Cannula 2.0 32 12/13/16 08:00 97.7 86 20 134/58 95 Nasal Cannula 2.0 12/13/16 07:38 94 12/13/16 07:30 88 20 98 Nasal Cannula 3.0 32 Intake and Output 12/13/16 12/14/16 19:00 07:00 Intake Total 1170 ml 997 ml Output Total 300 ml 1000 ml Balance 870 ml -3 ml Intake Oral 420 ml 100 ml IV Total 750 ml 897 ml Output Urine Total 300 ml 1000 ml Height (Feet): 5 Height (Inches): 10.00 Weight (Pounds): 130 Objective Elderly WM NCAT supple CTA except occ ronchi RRR Soft NT ND no edema non focal PEE TINOCO Dec 14, 2016 07:27
--- NOTE | 2016-12-14 07:31 | Pulmonology Progress Note ---
Assessment/Plan Assessment/Plan PROBLEM LIST: 1. Chronic obstructive pulmonary disease with acute exacerbation. 2. Hypoxemic respiratory failure 3. Tracheobronchitis. 4. Urinary tract infection. 5. Benign prostatic hyperplasia 6. Hypertension. 7. Hyperlipidemia. 8. Aortic Stenosis 9. History of pancreatic insufficiency. 10. Grave's disease 11. CHF 12. GIB possible 13. chest pain 14. possible esophagitis TREATMENT PLAN: respiratory care GI follow up noted reviewed endoscopy cards noted and reviewed back on Iv solumedrol; dc oxygen care monitor for change stabilize close follow up and monitor dc planning impression, plan, and exam edited and reviewed in detail care discussed with RN Subjective Allergies: Coded Allergies: No Known Allergies (Unverified , 09/26/12) Subjective EGD noted reviewed care Objective Last 24 Hour Vital Signs Date Time Temp Pulse Resp B/P Pulse Ox O2 Delivery O2 Flow Rate FiO2 12/14/16 04:00 81 12/14/16 04:00 97.7 80 20 149/74 94 Room Air 12/14/16 03:45 82 20 100 Nasal Cannula 3.0 32 12/14/16 03:30 78 20 95 Nasal Cannula 3.0 32 12/14/16 00:00 97.7 74 16 106/60 93 Nasal Cannula 2.0 12/14/16 00:00 75 12/13/16 23:40 88 20 100 Nasal Cannula 3.0 32 12/13/16 23:39 80 20 96 Nasal Cannula 3.0 32 12/13/16 21:16 84 120/85 12/13/16 20:00 88 12/13/16 20:00 97.0 85 21 139/85 95 Nasal Cannula 5.0 12/13/16 19:31 84 20 100 Nasal Cannula 3.0 32 12/13/16 19:29 80 20 97 Nasal Cannula 3.0 32 12/13/16 19:29 Nasal Cannula 3.0 32 12/13/16 19:29 97 Nasal Cannula 3.0 32 12/13/16 16:00 80 12/13/16 16:00 97.9 84 20 120/85 95 Nasal Cannula 5.0 12/13/16 15:05 86 20 100 Nasal Cannula 2.0 32 12/13/16 15:05 89 19 100 Nasal Cannula 2.0 32 12/13/16 15:05 32 12/13/16 13:52 81 124/50 12/13/16 11:50 78 12/13/16 11:18 96.9 82 20 124/50 100 Nasal Cannula 2.0 12/13/16 11:03 88 21 97 Nasal Cannula 2.0 32 12/13/16 10:50 32 12/13/16 10:50 85 19 96 Nasal Cannula 2.0 32 12/13/16 08:00 97.7 86 20 134/58 95 Nasal Cannula 2.0 12/13/16 07:38 94 Intake and Output 12/13/16 12/14/16 19:00 07:00 Intake Total 1170 ml 997 ml Output Total 300 ml 1000 ml Balance 870 ml -3 ml Intake Oral 420 ml 100 ml IV Total 750 ml 897 ml Output Urine Total 300 ml 1000 ml Objective WDWN NAD EOMI reduced breath sounds bilaterally with some rhonchi [id number] without MRG NABS nontender no HSM no CCE nonfocal alert and oriented x 2 on oxygen and comfortable Current Medications Medications (Trade) Dose Ordered Sig/Larissa Route PRN Reason Start Time Stop Time Status Last Admin Dose Admin Acetaminophen/ Hydrocodone Bitart ([place] 5/325) 1 tab Q1H PRN ORAL Mild Pain (Pain Scale 1-3) 12/14/16 07:15 UNV Acetaminophen/ Hydrocodone Bitart ([place] 7.5/325) 1 ea Q1H PRN ORAL Moderate Pain (Pain Scale 4-6) 12/14/16 07:15 UNV Al Hydroxide/Mg Hydroxide (Mylanta) 15 ml Q1H PRN ORAL gi upset 12/14/16 07:15 UNV Albuterol/ Ipratropium (DuoNeb 0.5-3(2.5)mg/3ml) 3 ml Q4HRT HHN 12/10/16 19:00 12/15/16 18:59 12/14/16 03:55 Amylase/Lipase/ Protease (Pancrease) 1 ea TIAC ORAL 12/11/16 06:30 01/10/17 06:29 12/13/16 11:19 Atorvastatin Calcium (Lipitor) 10 mg BEDTIME ORAL 12/10/16 21:00 01/09/17 20:59 12/13/16 21:16 Atropine Sulfate 0.5 mg 0.5 mg Q5M PRN IV HR <40 12/14/16 07:15 UNV Dextrose/Sodium Chloride (D5 0.45% NS) 1,000 ml @ 75 mls/hr [id number] IV 12/11/16 12:30 01/10/17 12:29 12/14/16 06:15 Diltiazem HCl (Cardizem) 60 mg EVERY 8 HOURS ORAL 12/10/16 22:00 01/09/17 21:59 12/13/16 21:16 Diphenhydramine HCl (Benadryl) 25 mg Q15M PRN IVP Itching 12/14/16 07:15 UNV Escitalopram Oxalate (Lexapro) 20 mg DAILY ORAL 12/11/16 09:00 01/10/17 08:59 12/13/16 09:28 Fentanyl Citrate (Sublimaze 100 mcg/2 mL) 25 mcg Q10M PRN IV Moderate Pain (Pain Scale 4-6) 12/14/16 07:15 UNV Finasteride (Proscar) 5 mg DAILY ORAL 12/11/16 09:00 01/10/17 08:59 12/13/16 09:28 Haloperidol Lactate (Haldol) 1 mg Q6H PRN IM Agitation 12/12/16 08:45 01/11/17 08:44 Hydralazine HCl (Apresoline) 5 mg Q30M PRN IV SBP>160 / DBP>90 12/14/16 07:15 UNV Hydromorphone HCl (Dilaudid) 0.5 mg Q15M PRN IVP Severe Pain (Pain Scale 7-10) 12/14/16 07:15 UNV Ketorolac Tromethamine (Toradol 30mg) 15 mg Q1H PRN IV Moderate Breakthru Pain (5-7) 12/14/16 07:15 UNV Ketorolac Tromethamine (Toradol) 60 mg Q1H PRN IV Severe Breakthru Pain (>7) 12/14/16 07:15 UNV Labetalol HCl (Normodyne) 5 mg Q10M PRN IV SBP>160 / DBP>90 12/14/16 07:15 12/15/16 07:14 UNV Lactated Ringer's (Lactated Ringer's 1000ml) 1,000 ml @ 10 mls/hr Q24H IVLG 12/14/16 07:07 12/14/16 09:06 UNV Levofloxacin (Levaquin) 250 mg Q24H ORAL 12/11/16 18:00 12/18/16 17:59 12/13/16 17:15 Lorazepam (Ativan 2mg/ml 1ml) 1 mg Q15M PRN IV For Anxiety 12/14/16 07:15 UNV Lorazepam (Ativan) 0.5 mg TIDPRN PRN ORAL For Anxiety 12/10/16 18:00 12/17/16 17:59 12/13/16 05:30 Magnesium Hydroxide (Mom) 30 ml DAILYPRN PRN ORAL Constipation 12/10/16 18:00 01/09/17 17:59 Meperidine HCl (Demerol) 25 mg Q5M PRN IV Shivering. May repeat x 1 12/14/16 07:15 UNV Methylprednisolone Sodium Succinate (Solu-MEDROL) 30 mg DAILY IVP 12/14/16 09:00 01/13/17 08:59 Metoclopramide HCl (Reglan) 10 mg Q1H PRN IVP Nausea & Vomiting 12/14/16 07:15 UNV Midazolam HCl (Versed 2mg/2ml vial) 1 mg Q15M PRN IVP For Anxiety 12/14/16 07:15 UNV Montelukast Sodium (Singulair) 10 mg QPM ORAL 12/11/16 16:30 01/10/17 16:29 12/13/16 16:02 Nebivolol (Bystolic) 10 mg DAILY ORAL 12/11/16 09:00 01/10/17 08:59 12/13/16 09:28 Nitroglycerin (Ntg) 0.4 mg Q5M PRN SL Prn Chest Pain 12/10/16 18:00 01/09/17 17:59 Nystatin (Nystatin) 5 ml QID ORAL 12/14/16 09:00 12/21/16 08:59 UNV Ondansetron HCl (Zofran) 4 mg Q1H PRN IVP Nausea & Vomiting 12/14/16 07:15 UNV Oxycodone/ Acetaminophen (Percocet 5-325) 1 tab Q1H PRN ORAL Severe Pain (Pain Scale 7-10) 12/14/16 07:15 UNV Pantoprazole (Protonix) 40 mg DAILY ORAL 12/11/16 09:00 01/10/17 08:59 12/13/16 09:27 Propylthiouracil 50 mg 50 mg Q8HR ORAL 12/10/16 22:00 01/09/17 21:59 12/13/16 21:17 Tamsulosin HCl (Flomax) 0.4 mg BEDTIME ORAL 12/10/16 21:00 01/09/17 20:59 12/13/16 21:16 Zolpidem Tartrate (Ambien) 5 mg HSPRN PRN ORAL Insomnia 12/10/16 18:00 01/09/17 17:59 TAVO SMITH Dec 14, 2016 07:31
[2016-12-14] MEDS ORDERED: Nystatin Susp 500,000 units/5ml ORAL ONE (08:45)
[2016-12-14] MEDS ORDERED: Solu-MEDROL 40mg Inj IVP SCH (09:00)
[2016-12-14 10:45] LABS: ABG PCO2 90.1 mmHg (35.0-45.0)
[2016-12-14 10:46] LABS: ABG ALLEN TEST POSITIVE; ABG BASE EXCESS 3.6
[2016-12-14] MEDS: Solu-MEDROL 125mg Inj IVP SCH ×2 (11:34→20:07)
--- NOTE | 2016-12-14 12:51 | Diagnostic Imaging Report ---
Indications: Shortness of breath Technique: Portable AP chest Findings: Comparison: 12/10/2016 Lungs are symmetrically hyperinflated with flattening of the hemidiaphragms. No new pulmonary parenchymal or pleural abnormalities are demonstrated. Cardiac mediastinal silhouette stable. IMPRESSION: Findings compatible with COPD, unchanged No evidence of acute disease, unchanged
[2016-12-14] MEDS: Nystatin Susp 500,000 units/5ml ORAL SCH ×3 (13:00→21:18)
[2016-12-14] MEDS: Montelukast 10mg tablet ORAL SCH (16:32)
[2016-12-14] MEDS ORDERED: D5 1/2NS 1000ml IV ONE (18:07)
[2016-12-14] MEDS: Tamsulosin 0.4mg cap ORAL SCH (21:18)
[2016-12-15] MEDS: DuoNeb 0.5-3(2.5)mg/3ml neb HHN SCH ×5 (00:01→15:45)
[2016-12-15 00:09] VITALS: BP 101/46
[2016-12-15 04:02] VITALS: BP 164/98
--- NOTE | 2016-12-15 05:09 | Progress Note ---
DATE: 12/14/2016 CARDIOLOGY PROGRESS NOTE SUBJECTIVE: No recurring chest pain. Endoscopy completed today. Findings notable for GERD with erosions and Kaylyn esophagitis. OBJECTIVE: VITAL SIGNS: Blood pressure is 149/74, pulse rate 80, and respiratory rate 20, and afebrile. Oxygen saturation 94% on room air. NECK: Supple. LUNGS: Clear. CARDIAC: Regular. Normal S1, S2. ABDOMEN: Slightly distended. EXTREMITIES: No edema. LABORATORY DATA: Labs are reviewed. IMPRESSION: 1. Noncardiac chest pain, likely due to gastrointestinal findings. 2. Gastroesophageal reflux disease. 3. History of Graves disease. 4. Degenerative aortic valve disease with stenosis. 5. Hypertensive heart disease with controlled blood pressure. 6. Chronic diastolic congestive heart failure. 7. Chronic obstructive pulmonary disease. PLAN: 1. GI regimen reviewed. 2. Taper steroids. 3. Nasal oxygen as needed. 4. Avoid anti-platelet therapy for now. 5. Consider endocrine evaluation. 6. decrease in PTU dosing. Farhad Esparza M.D. DR: ZAC JOB#: [id number] CC:
[2016-12-15] MEDS: Pancrease Cap ORAL SCH ×3 (06:11→17:24)
[2016-12-15 07:57] VITALS: BP 146/93
[2016-12-15 08:02] LABS: MEAN CORPUSCULAR HGB CONC 31.5 G/DL (32.0-36.0); MEAN CORPUSCULAR VOLUME 95 FL (80-99); MEAN PLATELET VOLUME 6.5 FL (6.5-10.1); PLATELET COUNT 155 K/UL (150-450); RED BLOOD COUNT 4.24 M/UL (4.70-6.10); RED CELL DISTRIBUTION WIDTH 12.1 % (11.6-14.8); WHITE BLOOD COUNT 13.1 K/UL (4.8-10.8)
[2016-12-15 08:11] LABS: ALANINE AMINOTRANSFERASE 39 U/L (3-41); ANION GAP 8 (5-15); ASPARTATE AMINO TRANSFERASE 23 U/L (5-40); CALCIUM 8.4 mg/dL (8.6-10.2); CARBON DIOXIDE 36 mEQ/L (20-30); CHLORIDE 95 mEQ/L (98-107); CREATININE 0.6 mg/dL (0.7-1.2); HEMOLYSIS 7; POTASSIUM 3.7 mEQ/L (3.4-4.9); SODIUM 139 mEQ/L (135-145); TOTAL PROTEIN 5.1 g/dL (6.6-8.7)
[2016-12-15] MEDS: Nystatin Susp 500,000 units/5ml ORAL SCH ×4 (08:36→21:37)
[2016-12-15] MEDS: Solu-MEDROL 125mg Inj IVP SCH ×2 (08:36→21:36)
[2016-12-15] MEDS: Propylthiouracil 50mg tab ORAL SCH ×2 (08:37→21:37)
--- NOTE | 2016-12-15 09:33 | Pulmonology Progress Note ---
Assessment/Plan Assessment/Plan PROBLEM LIST: 1. Chronic obstructive pulmonary disease with acute exacerbation. 2. Hypoxemic respiratory failure 3. Tracheobronchitis. 4. Urinary tract infection. 5. Benign prostatic hyperplasia 6. Hypertension. 7. Hyperlipidemia. 8. Aortic Stenosis 9. History of pancreatic insufficiency. 10. Grave's disease 11. CHF 12. GIB possible 13. chest pain 14. possible esophagitis TREATMENT PLAN: respiratory care resumed solumedrol reviewed endoscopy cards noted and reviewed repeat ABG with co2 retention; however, patient is awake and comfortable oxygen care monitor for change stabilize for now close follow up and monitor dc planning on hold impression, plan, and exam edited and reviewed in detail care discussed with RN Subjective Allergies: Coded Allergies: No Known Allergies (Unverified , 09/26/12) Subjective had more shortness of breath ABG not reported no distress Objective Last 24 Hour Vital Signs Date Time Temp Pulse Resp B/P Pulse Ox O2 Delivery O2 Flow Rate FiO2 12/15/16 07:57 96.2 83 20 146/93 98 Nasal Cannula 5.0 12/15/16 07:35 79 23 98 Nasal Cannula 5.0 12/15/16 07:33 Nasal Cannula 5.0 12/15/16 07:25 77 20 96 Nasal Cannula 5.0 12/15/16 07:24 96 Nasal Cannula 55.0 12/15/16 06:11 88 139/65 12/15/16 04:02 97.7 104 22 164/98 99 Nasal Cannula 3.0 12/15/16 04:00 114 12/15/16 03:32 102 20 98 Nasal Cannula 3.0 32 12/15/16 03:31 97 20 96 Nasal Cannula 3.0 32 12/15/16 00:09 97.8 71 21 101/46 97 Nasal Cannula 3.0 12/15/16 00:00 73 12/14/16 23:45 70 20 98 Nasal Cannula 3.0 32 12/14/16 23:30 65 20 98 Nasal Cannula 3.0 32 12/14/16 21:18 78 115/58 12/14/16 20:00 65 12/14/16 20:00 97.0 78 19 115/58 Nasal Cannula 2.0 99 12/14/16 19:45 78 20 98 Nasal Cannula 3.0 32 12/14/16 19:30 Nasal Cannula 3.0 32 12/14/16 19:30 72 20 97 Nasal Cannula 3.0 32 12/14/16 19:30 97 Nasal Cannula 3.0 32 12/14/16 16:00 98.1 72 18 96/42 Nasal Cannula 2.0 98 12/14/16 16:00 72 12/14/16 15:34 81 24 95 Nasal Cannula 5.0 12/14/16 15:24 85 24 95 Nasal Cannula 5.0 12/14/16 14:30 91 120/68 12/14/16 12:00 96.4 96 23 120/68 98 Venturi Mask 50 12/14/16 12:00 91 12/14/16 11:11 Venturi Mask 12.0 50 12/14/16 11:10 Venturi Mask 50 12/14/16 09:59 105 25 96 Venturi Mask 12.0 50 12/14/16 09:42 102 25 89 Venturi Mask 12.0 50 Intake and Output 12/14/16 12/15/16 18:59 06:59 Intake Total 1120 ml 375 ml Output Total 560 ml 800 ml Balance 560 ml -425 ml Intake Oral 120 ml IV Total 1000 ml 375 ml Output Urine Total 560 ml 800 ml Estimated Blood Loss 0 ml Objective WDWN NAD EOMI reduced breath sounds bilaterally no rhonchi or wheeze [id number] without MRG NABS nontender no HSM no CCE nonfocal alert and oriented x 2 on oxygen and comfortable Laboratory Tests 12/14/16 10:20: Arterial Blood pH 7.205*L, Arterial Blood Partial Pressure CO2 90.1*H, Arterial Blood Partial Pressure O2 132.7H, Arterial Blood HCO3 34.8H, Arterial Blood Oxygen Saturation 97.7, Arterial Blood Base Excess 3.6, Maxi Test Positive 12/15/16 06:30: White Blood Count 13.1H, Red Blood Count 4.24L, Hemoglobin 12.7L, Hematocrit 40.4L, Mean Corpuscular Volume 95, Mean Corpuscular Hemoglobin 30.0, Mean Corpuscular Hemoglobin Concent 31.5L, Red Cell Distribution Width 12.1, Platelet Count 155, Mean Platelet Volume 6.5, Neutrophils (%) (Auto) , Lymphocytes (%) (Auto) , Monocytes (%) (Auto) , Eosinophils (%) (Auto) , Basophils (%) (Auto) , Neutrophils % (Manual) [Pending], Lymphocytes % (Manual) [Pending], Platelet Estimate [Pending], Platelet Morphology [Pending], Sodium Level 139, Potassium Level 3.7, Chloride Level 95L, Carbon Dioxide Level 36H, Anion Gap 8, Blood Urea Nitrogen 18, Creatinine 0.6L, Estimat Glomerular Filtration Rate , Glucose Level 167H, Calcium Level 8.4L, Magnesium Level 2.0, Total Bilirubin 0.4, Aspartate Amino Transf (AST/SGOT) 23, Alanine Aminotransferase (ALT/SGPT) 39, Alkaline Phosphatase 60, Total Protein 5.1L, Albumin 3.4L, Globulin 1.7, Albumin/Globulin Ratio 2.0 Current Medications Medications (Trade) Dose Ordered Sig/Larissa Route PRN Reason Start Time Stop Time Status Last Admin Dose Admin Albuterol/ Ipratropium (DuoNeb 0.5-3(2.5)mg/3ml) 3 ml Q4HRT HHN 12/10/16 19:00 12/15/16 18:59 12/15/16 07:30 Amylase/Lipase/ Protease (Pancrease) 1 ea TIAC ORAL 12/11/16 06:30 01/10/17 06:29 12/15/16 06:11 Atorvastatin Calcium (Lipitor) 10 mg BEDTIME ORAL 12/10/16 21:00 01/09/17 20:59 12/14/16 21:18 Diltiazem HCl (Cardizem) 60 mg EVERY 8 HOURS ORAL 12/10/16 22:00 01/09/17 21:59 12/15/16 06:11 Escitalopram Oxalate (Lexapro) 20 mg DAILY ORAL 12/11/16 09:00 01/10/17 08:59 12/15/16 08:35 Finasteride (Proscar) 5 mg DAILY ORAL 12/11/16 09:00 01/10/17 08:59 12/15/16 08:35 Haloperidol Lactate (Haldol) 1 mg Q6H PRN IM Agitation 12/12/16 08:45 01/11/17 08:44 Levofloxacin (Levaquin) 250 mg Q24H ORAL 12/11/16 18:00 12/18/16 17:59 12/14/16 17:41 Lorazepam (Ativan) 0.5 mg TIDPRN PRN ORAL For Anxiety 12/10/16 18:00 12/17/16 17:59 12/13/16 05:30 Magnesium Hydroxide (Mom) 30 ml DAILYPRN PRN ORAL Constipation 12/10/16 18:00 01/09/17 17:59 Methylprednisolone Sodium Succinate (Solu-MEDROL) 60 mg EVERY 12 HOURS IVP 12/14/16 12:00 01/13/17 11:59 12/15/16 08:36 Montelukast Sodium (Singulair) 10 mg QPM ORAL 12/11/16 16:30 01/10/17 16:29 12/14/16 16:32 Nebivolol (Bystolic) 10 mg DAILY ORAL 12/11/16 09:00 01/10/17 08:59 12/15/16 08:37 Nitroglycerin (Ntg) 0.4 mg Q5M PRN SL Prn Chest Pain 12/10/16 18:00 01/09/17 17:59 Nystatin (Nystatin) 5 ml QHS ORAL 12/14/16 21:00 12/21/16 20:59 12/14/16 21:18 Nystatin (Nystatin) 5 ml TIPC ORAL 12/14/16 13:00 12/21/16 12:59 12/15/16 08:36 Pantoprazole (Protonix) 40 mg DAILY ORAL 12/11/16 09:00 01/10/17 08:59 12/15/16 08:36 Propylthiouracil (Ptu) 50 mg Q12HR ORAL 12/15/16 09:00 01/14/17 08:59 12/15/16 08:37 Tamsulosin HCl (Flomax) 0.4 mg BEDTIME ORAL 12/10/16 21:00 01/09/17 20:59 12/14/16 21:18 Zolpidem Tartrate (Ambien) 5 mg HSPRN PRN ORAL Insomnia 12/10/16 18:00 01/09/17 17:59 TAVO SMITH Dec 15, 2016 09:33
[2016-12-15 10:32] LABS: ABG BASE EXCESS 7.4; ABG PCO2 68.3 mmHg (35.0-45.0)
[2016-12-15 10:33] LABS: ABG ALLEN TEST POSITIVE
[2016-12-15 10:45] LABS: BAND NEUTROPHILS % (MANUAL) 0 % (0-8); BASOPHILS % (MANUAL) 0 % (0-2); EOSINOPHILS % (MANUAL) 0 % (0-3); LYMPHOCYTES % (MANUAL) 1 % (20-45); NEUTROPHILS % (MANUAL) 94 % (45-75); PLATELET ESTIMATE ADEQUATE; PLATELET MORPHOLOGY NORMAL; TOTAL CELLS COUNTED 100
--- NOTE | 2016-12-15 11:02 | Diagnostic Imaging Report ---
Indication: SOB Technique: One view of the chest Comparison: 12/14/2016 Findings: Hyperinflation is again demonstrated. No new infiltrates. Heart size is normal. Findings are unchanged Impression: Unchanged, over one day, findings as above.
[2016-12-15 11:29] VITALS: BP 101/52
--- NOTE | 2016-12-15 13:23 | General Progress Note ---
Assessment/Plan Problem List: (1) GI bleed ICD Codes: K92.2 - Gastrointestinal hemorrhage, unspecified SNOMED: 75949516 (2) Encephalopathy acute ICD Codes: G93.40 - Encephalopathy, unspecified SNOMED: 5695671 (3) Esophagitis ICD Codes: K20.9 - Esophagitis, unspecified SNOMED: 46123991 (4) COPD (chronic obstructive pulmonary disease) ICD Codes: J44.9 - Chronic obstructive pulmonary disease, unspecified SNOMED: 71628671 Status: stable, progressing Assessment/Plan steroids resp care o2 ppi rx pos as tolerated anxiolytics as needed consider aru or snf Subjective ROS Limited/Unobtainable: No Constitutional: Reports: malaise, weakness HEENT: Reports: no symptoms Cardiovascular: Reports: no symptoms Respiratory: Reports: cough, shortness of breath Gastrointestinal/Abdominal: Reports: no symptoms Genitourinary: Reports: no symptoms Neurologic/Psychiatric: Reports: pre-existing deficit Endocrine: Reports: no symptoms Hematologic/Lymphatic: Reports: no symptoms Allergies: Coded Allergies: No Known Allergies (Unverified , 09/26/12) All Systems: reviewed and negative except above Subjective had LEHR CUTTER for resp distress yesterday. better this am. still with complaints of sob. Objective Last 24 Hour Vital Signs Date Time Temp Pulse Resp B/P Pulse Ox O2 Delivery O2 Flow Rate FiO2 12/15/16 11:53 78 23 98 Nasal Cannula 5.0 12/15/16 11:45 75 20 96 Nasal Cannula 5.0 12/15/16 11:29 97.2 70 22 101/52 95 Nasal Cannula 4.0 12/15/16 08:00 83 12/15/16 07:57 96.2 83 20 146/93 98 Nasal Cannula 5.0 12/15/16 07:35 79 23 98 Nasal Cannula 5.0 12/15/16 07:33 Nasal Cannula 5.0 12/15/16 07:25 77 20 96 Nasal Cannula 5.0 12/15/16 07:24 96 Nasal Cannula 55.0 12/15/16 06:11 88 139/65 12/15/16 04:02 97.7 104 22 164/98 99 Nasal Cannula 3.0 12/15/16 04:00 114 12/15/16 03:32 102 20 98 Nasal Cannula 3.0 32 12/15/16 03:31 97 20 96 Nasal Cannula 3.0 32 12/15/16 00:09 97.8 71 21 101/46 97 Nasal Cannula 3.0 12/15/16 00:00 73 12/14/16 23:45 70 20 98 Nasal Cannula 3.0 32 12/14/16 23:30 65 20 98 Nasal Cannula 3.0 32 12/14/16 21:18 78 115/58 12/14/16 20:00 65 12/14/16 20:00 97.0 78 19 115/58 Nasal Cannula 2.0 99 12/14/16 19:45 78 20 98 Nasal Cannula 3.0 32 12/14/16 19:30 Nasal Cannula 3.0 32 12/14/16 19:30 72 20 97 Nasal Cannula 3.0 32 12/14/16 19:30 97 Nasal Cannula 3.0 32 12/14/16 16:00 98.1 72 18 96/42 Nasal Cannula 2.0 98 12/14/16 16:00 72 12/14/16 15:34 81 24 95 Nasal Cannula 5.0 12/14/16 15:24 85 24 95 Nasal Cannula 5.0 12/14/16 14:30 91 120/68 Intake and Output 12/14/16 12/15/16 19:00 07:00 Intake Total 1120 ml 300 ml Output Total 560 ml 800 ml Balance 560 ml -500 ml Intake Oral 120 ml IV Total 1000 ml 300 ml Output Urine Total 560 ml 800 ml Estimated Blood Loss 0 ml Laboratory Tests 12/15/16 06:30: White Blood Count 13.1H, Red Blood Count 4.24L, Hemoglobin 12.7L, Hematocrit 40.4L, Mean Corpuscular Volume 95, Mean Corpuscular Hemoglobin 30.0, Mean Corpuscular Hemoglobin Concent 31.5L, Red Cell Distribution Width 12.1, Platelet Count 155, Mean Platelet Volume 6.5, Neutrophils (%) (Auto) , Lymphocytes (%) (Auto) , Monocytes (%) (Auto) , Eosinophils (%) (Auto) , Basophils (%) (Auto) , Differential Total Cells Counted 100, Neutrophils % ( Manual) 94H, Lymphocytes % (Manual) 1L, Monocytes % (Manual) 5, Eosinophils % ( Manual) 0, Basophils % (Manual) 0, Band Neutrophils 0, Platelet Estimate Adequate, Platelet Morphology Normal, Red Blood Cell Morphology Normal, Sodium Level 139, Potassium Level 3.7, Chloride Level 95L, Carbon Dioxide Level 36H, Anion Gap 8, Blood Urea Nitrogen 18, Creatinine 0.6L, Estimat Glomerular Filtration Rate , Glucose Level 167H, Calcium Level 8.4L, Magnesium Level 2.0, Total Bilirubin 0.4, Aspartate Amino Transf (AST/SGOT) 23, Alanine Aminotransferase (ALT/SGPT) 39, Alkaline Phosphatase 60, Total Protein 5.1L, Albumin 3.4L, Globulin 1.7, Albumin/Globulin Ratio 2.0 12/15/16 10:10: Arterial Blood pH 7.337L, Arterial Blood Partial Pressure CO2 68.3*H, Arterial Blood Partial Pressure O2 94.7, Arterial Blood HCO3 35.8H, Arterial Blood Oxygen Saturation 96.6, Arterial Blood Base Excess 7.4, Maxi Test Positive Height (Feet): 5 Height (Inches): 10.00 Weight (Pounds): 130 Objective General Appearance: WD/WN, alert, confused EENT: PERRL/EOMI, normal ENT inspection Neck: supple Cardiovascular: regular rhythm Respiratory/Chest: lungs clear, normal breath sounds, no respiratory distress, no accessory muscle use Abdomen: normal bowel sounds, non tender, soft, no organomegaly, no mass Edema: no edema noted Arm (L), no edema noted Arm (R), no edema noted Leg (L), no edema noted Leg (R), no edema noted Pedal (L), no edema noted Pedal (R), no edema noted Generalized CRYSTAL FOSTER Dec 15, 2016 13:23
[2016-12-15] MEDS ORDERED: Sterile Water Irrig 1000ml IRRIG ONE (15:15)
[2016-12-15 16:00] VITALS: BP 109/60
[2016-12-15] MEDS: Montelukast 10mg tablet ORAL SCH (17:24)
[2016-12-15 20:00] VITALS: BP 112/63
[2016-12-15] MEDS: Tamsulosin 0.4mg cap ORAL SCH (21:38)
--- NOTE | 2016-12-15 22:26 | General Progress Note ---
Assessment/Plan Assessment/Plan Assessment - Atypical CP - COPD - hypothyroid on PTU - GERD - matthieu esophagitis Recommendations - push po - elevate HOB - PPI - Nystatin Subjective Allergies: Coded Allergies: No Known Allergies (Unverified , 09/26/12) Subjective No new problems confused Objective Last 24 Hour Vital Signs Date Time Temp Pulse Resp B/P Pulse Ox O2 Delivery O2 Flow Rate FiO2 12/15/16 21:37 79 124/56 12/15/16 20:00 97.7 68 18 112/63 Nasal Cannula 2.0 96 12/15/16 19:59 73 22 98 Nasal Cannula 5.0 12/15/16 19:55 Nasal Cannula 5.0 40 12/15/16 19:54 96 Nasal Cannula 5.0 40 12/15/16 19:49 57 22 96 Nasal Cannula 5.0 32 12/15/16 19:00 69 20 Nasal Cannula 5.0 40 12/15/16 16:00 97.9 84 18 109/60 Nasal Cannula 12/15/16 15:50 76 23 98 Nasal Cannula 5.0 12/15/16 15:40 78 20 96 Nasal Cannula 5.0 12/15/16 13:24 78 101/52 12/15/16 12:00 81 12/15/16 11:53 78 23 98 Nasal Cannula 5.0 12/15/16 11:45 75 20 96 Nasal Cannula 5.0 12/15/16 11:29 97.2 70 22 101/52 95 Nasal Cannula 4.0 12/15/16 08:00 83 12/15/16 07:57 96.2 83 20 146/93 98 Nasal Cannula 5.0 12/15/16 07:35 79 23 98 Nasal Cannula 5.0 12/15/16 07:33 Nasal Cannula 5.0 12/15/16 07:25 77 20 96 Nasal Cannula 5.0 12/15/16 07:24 96 Nasal Cannula 55.0 12/15/16 06:11 88 139/65 12/15/16 04:02 97.7 104 22 164/98 99 Nasal Cannula 3.0 12/15/16 04:00 114 12/15/16 03:32 102 20 98 Nasal Cannula 3.0 32 12/15/16 03:31 97 20 96 Nasal Cannula 3.0 32 12/15/16 00:09 97.8 71 21 101/46 97 Nasal Cannula 3.0 12/15/16 00:00 73 12/14/16 23:45 70 20 98 Nasal Cannula 3.0 32 12/14/16 23:30 65 20 98 Nasal Cannula 3.0 32 Intake and Output 12/14/16 12/15/16 19:00 07:00 Intake Total 1120 ml 300 ml Output Total 560 ml 800 ml Balance 560 ml -500 ml Intake Oral 120 ml IV Total 1000 ml 300 ml Output Urine Total 560 ml 800 ml Estimated Blood Loss 0 ml Laboratory Tests 12/15/16 06:30: White Blood Count 13.1H, Red Blood Count 4.24L, Hemoglobin 12.7L, Hematocrit 40.4L, Mean Corpuscular Volume 95, Mean Corpuscular Hemoglobin 30.0, Mean Corpuscular Hemoglobin Concent 31.5L, Red Cell Distribution Width 12.1, Platelet Count 155, Mean Platelet Volume 6.5, Neutrophils (%) (Auto) , Lymphocytes (%) (Auto) , Monocytes (%) (Auto) , Eosinophils (%) (Auto) , Basophils (%) (Auto) , Differential Total Cells Counted 100, Neutrophils % ( Manual) 94H, Lymphocytes % (Manual) 1L, Monocytes % (Manual) 5, Eosinophils % ( Manual) 0, Basophils % (Manual) 0, Band Neutrophils 0, Platelet Estimate Adequate, Platelet Morphology Normal, Red Blood Cell Morphology Normal, Sodium Level 139, Potassium Level 3.7, Chloride Level 95L, Carbon Dioxide Level 36H, Anion Gap 8, Blood Urea Nitrogen 18, Creatinine 0.6L, Estimat Glomerular Filtration Rate , Glucose Level 167H, Calcium Level 8.4L, Magnesium Level 2.0, Total Bilirubin 0.4, Aspartate Amino Transf (AST/SGOT) 23, Alanine Aminotransferase (ALT/SGPT) 39, Alkaline Phosphatase 60, Total Protein 5.1L, Albumin 3.4L, Globulin 1.7, Albumin/Globulin Ratio 2.0 12/15/16 10:10: Arterial Blood pH 7.337L, Arterial Blood Partial Pressure CO2 68.3*H, Arterial Blood Partial Pressure O2 94.7, Arterial Blood HCO3 35.8H, Arterial Blood Oxygen Saturation 96.6, Arterial Blood Base Excess 7.4, Maxi Test Positive Height (Feet): 5 Height (Inches): 10.00 Weight (Pounds): 130 Objective Elderly WM NCAT supple CTA except occ ronchi RRR Soft NT ND no edema non focal PEE TINOCO Dec 15, 2016 22:26
[2016-12-16 00:01] VITALS: BP 125/59
[2016-12-16] MEDS ORDERED: DuoNeb 0.5-3(2.5)mg/3ml neb HHN ONE (00:15)
--- NOTE | 2016-12-16 01:50 | Progress Note ---
CARDIOLOGY PROGRESS NOTE SUBJECTIVE: The patient had an episode of respiratory distress yesterday requiring rapid response. He improved with respiratory therapy and BiPAP support. He is now back to his baseline. OBJECTIVE: VITAL SIGNS: Blood pressure 101/52, pulse 70, respirations 22, afebrile, and oxygen saturation on 4 to 5 liters is now 95%. LUNGS: Bilateral breath sounds with rhonchi. HEART: Regular rhythm and rate. Normal S1 and S2. ABDOMEN: Soft. EXTREMITIES: With dependent edema. LABORATORY DATA: White count 13 and hemoglobin 12.7. Sodium 139, potassium 3.7, bicarbonate 36, BUN 18, creatinine 0.6, albumin 3.4, glucose 167, and magnesium 2.0. IMPRESSION: 1. Chronic obstructive pulmonary disease exacerbation. 2. Paroxysmal bronchospasm. 3. Hypoxia, status post respiratory failure. 4. Graves disease with low thyroid levels, status post decrease dose of propylthiouracil yesterday. 5. Degenerative aortic valve disease with stenosis. 6. Acute and chronic respiratory acidosis. PLAN: 1. Bronchodilators. 2. Respiratory hygiene. 3. Steroid taper. 4. Monitor volume status. Titrate his antithyroid regimen. 5. Avoid tight blood pressure control and hypovolemia in this clinical setting due to aortic stenosis and risk for syncope. Farhad Esparza M.D. DR: Shan JOB#: [id number] CC:
[2016-12-16] MEDS: DuoNeb 0.5-3(2.5)mg/3ml neb HHN SCH ×6 (03:08→23:09)
[2016-12-16 04:01] VITALS: BP 135/59
[2016-12-16] MEDS: Pancrease Cap ORAL SCH ×3 (06:07→17:09)
[2016-12-16 07:35] VITALS: BP 116/53
--- NOTE | 2016-12-16 08:16 | Pulmonology Progress Note ---
Assessment/Plan Assessment/Plan PROBLEM LIST: 1. Chronic obstructive pulmonary disease with acute exacerbation. 2. Hypoxemic respiratory failure 3. Tracheobronchitis. 4. Urinary tract infection. 5. Benign prostatic hyperplasia 6. Hypertension. 7. Hyperlipidemia. 8. Aortic Stenosis 9. History of pancreatic insufficiency. 10. Grave's disease 11. CHF 12. GIB possible 13. chest pain 14. possible esophagitis TREATMENT PLAN: respiratory care on solumedrol cards noted and reviewed ABG better oxygen care monitor for change stabilize for now close follow up and monitor dc planning on hold pending improvement impression, plan, and exam edited and reviewed in detail care discussed with RN Subjective Allergies: Coded Allergies: No Known Allergies (Unverified , 09/26/12) Subjective improved shortness of breath ABG noted and improved no distress Objective Last 24 Hour Vital Signs Date Time Temp Pulse Resp B/P Pulse Ox O2 Delivery O2 Flow Rate FiO2 12/16/16 07:49 67 18 96 Nasal Cannula 2.0 28 12/16/16 07:49 67 18 96 Nasal Cannula 2.0 28 12/16/16 07:35 98.6 74 20 116/53 92 Nasal Cannula 2.0 12/16/16 07:34 Nasal Cannula 5.0 40 12/16/16 07:34 97 Nasal Cannula 5.0 40 12/16/16 06:07 78 126/48 12/16/16 04:01 98.3 94 19 135/59 98 Nasal Cannula 2.0 12/16/16 04:00 90 12/16/16 03:19 67 20 96 Nasal Cannula 2.0 28 12/16/16 03:09 72 20 92 Nasal Cannula 2.0 28 12/16/16 00:29 72 20 97 Nasal Cannula 2.0 28 12/16/16 00:19 67 22 93 Nasal Cannula 5.0 40 12/16/16 00:01 98.1 79 20 125/59 93 Nasal Cannula 12/16/16 00:00 73 12/15/16 23:49 Nasal Cannula 12/15/16 23:48 Nasal Cannula 12/15/16 21:37 79 124/56 12/15/16 20:00 97.7 68 18 112/63 Nasal Cannula 2.0 96 12/15/16 20:00 82 12/15/16 19:59 73 22 98 Nasal Cannula 5.0 12/15/16 19:55 Nasal Cannula 5.0 40 12/15/16 19:54 96 Nasal Cannula 5.0 40 12/15/16 19:49 57 22 96 Nasal Cannula 5.0 32 12/15/16 19:00 69 20 Nasal Cannula 5.0 40 12/15/16 16:00 87 12/15/16 16:00 97.9 84 18 109/60 Nasal Cannula 12/15/16 15:50 76 23 98 Nasal Cannula 5.0 12/15/16 15:40 78 20 96 Nasal Cannula 5.0 12/15/16 13:24 78 101/52 12/15/16 12:00 81 12/15/16 11:53 78 23 98 Nasal Cannula 5.0 12/15/16 11:45 75 20 96 Nasal Cannula 5.0 12/15/16 11:29 97.2 70 22 101/52 95 Nasal Cannula 4.0 Intake and Output 12/15/16 12/16/16 19:00 07:00 Intake Total 120 ml Output Total 1500 ml 800 ml Balance -1380 ml -800 ml Intake Oral 120 ml Output Urine Total 1500 ml 800 ml Objective WDWN NAD EOMI reduced breath sounds bilaterally no rhonchi or wheeze [id number] without MRG NABS nontender no HSM no CCE nonfocal alert and oriented on oxygen and comfortable at present Laboratory Tests 12/15/16 10:10: Arterial Blood pH 7.337L, Arterial Blood Partial Pressure CO2 68.3*H, Arterial Blood Partial Pressure O2 94.7, Arterial Blood HCO3 35.8H, Arterial Blood Oxygen Saturation 96.6, Arterial Blood Base Excess 7.4, Maxi Test Positive Current Medications Medications (Trade) Dose Ordered Sig/Larissa Route PRN Reason Start Time Stop Time Status Last Admin Dose Admin Albuterol/ Ipratropium (DuoNeb 0.5-3(2.5)mg/3ml) 3 ml Q4HRT HHN 12/16/16 03:00 12/21/16 02:59 12/16/16 07:49 Amylase/Lipase/ Protease (Pancrease) 1 ea TIAC ORAL 12/11/16 06:30 01/10/17 06:29 12/16/16 06:07 Atorvastatin Calcium (Lipitor) 10 mg BEDTIME ORAL 12/10/16 21:00 01/09/17 20:59 12/16/16 00:07 Clonidine HCl (Catapres) 0.1 mg Q4H PRN ORAL for SBP >160 12/15/16 21:15 01/14/17 21:14 Diltiazem HCl (Cardizem) 60 mg EVERY 8 HOURS ORAL 12/10/16 22:00 01/09/17 21:59 12/16/16 06:07 Escitalopram Oxalate (Lexapro) 20 mg DAILY ORAL 12/11/16 09:00 01/10/17 08:59 12/15/16 08:35 Finasteride (Proscar) 5 mg DAILY ORAL 12/11/16 09:00 01/10/17 08:59 12/15/16 08:35 Haloperidol Lactate (Haldol) 1 mg Q6H PRN IM Agitation 12/12/16 08:45 01/11/17 08:44 Levofloxacin (Levaquin) 250 mg Q24H ORAL 12/11/16 18:00 12/17/16 23:59 12/15/16 17:25 Lorazepam (Ativan) 0.5 mg TIDPRN PRN ORAL For Anxiety 12/10/16 18:00 12/17/16 17:59 12/13/16 05:30 Magnesium Hydroxide (Mom) 30 ml DAILYPRN PRN ORAL Constipation 12/10/16 18:00 01/09/17 17:59 Methylprednisolone Sodium Succinate (Solu-MEDROL) 60 mg EVERY 12 HOURS IVP 12/14/16 12:00 01/13/17 11:59 12/15/16 21:36 Montelukast Sodium (Singulair) 10 mg QPM ORAL 12/11/16 16:30 01/10/17 16:29 12/15/16 17:24 Nebivolol (Bystolic) 10 mg DAILY ORAL 12/11/16 09:00 01/10/17 08:59 12/15/16 08:37 Nitroglycerin (Ntg) 0.4 mg Q5M PRN SL Prn Chest Pain 12/10/16 18:00 01/09/17 17:59 Nystatin (Nystatin) 5 ml QHS ORAL 12/14/16 21:00 12/21/16 20:59 12/15/16 21:37 Nystatin (Nystatin) 5 ml TIPC ORAL 12/14/16 13:00 12/21/16 12:59 12/15/16 17:24 Pantoprazole (Protonix) 40 mg DAILY ORAL 12/11/16 09:00 01/10/17 08:59 12/15/16 08:36 Propylthiouracil (Ptu) 50 mg Q12HR ORAL 12/15/16 09:00 01/14/17 08:59 12/15/16 21:37 Tamsulosin HCl (Flomax) 0.4 mg BEDTIME ORAL 12/10/16 21:00 01/09/17 20:59 12/15/16 21:38 Zolpidem Tartrate (Ambien) 5 mg HSPRN PRN ORAL Insomnia 12/10/16 18:00 01/09/17 17:59 TAVO SMITH Dec 16, 2016 08:16
[2016-12-16] MEDS: Propylthiouracil 50mg tab ORAL SCH ×2 (08:37→22:02)
[2016-12-16] MEDS: Solu-MEDROL 125mg Inj IVP SCH ×2 (08:38→22:01)
[2016-12-16] MEDS: Nystatin Susp 500,000 units/5ml ORAL SCH ×4 (08:38→22:04)
[2016-12-16 09:06] LABS: ABG ALLEN TEST POSITIVE; ABG BASE EXCESS 13.8; ABG PCO2 56.7 mmHg (35.0-45.0)
--- NOTE | 2016-12-16 09:14 | General Progress Note ---
Assessment/Plan Problem List: (1) GI bleed ICD Codes: K92.2 - Gastrointestinal hemorrhage, unspecified SNOMED: 37928386 (2) Encephalopathy acute ICD Codes: G93.40 - Encephalopathy, unspecified SNOMED: 2709506 (3) Esophagitis ICD Codes: K20.9 - Esophagitis, unspecified SNOMED: 69007833 (4) COPD (chronic obstructive pulmonary disease) ICD Codes: J44.9 - Chronic obstructive pulmonary disease, unspecified SNOMED: 44053703 Status: stable, not improved Assessment/Plan iv steroids resp care o2 ppi rx pos as tolerated anxiolytics as needed consider aru or snf Subjective ROS Limited/Unobtainable: No Constitutional: Reports: malaise, weakness HEENT: Reports: no symptoms Cardiovascular: Reports: no symptoms Respiratory: Reports: cough, shortness of breath, sputum Gastrointestinal/Abdominal: Reports: no symptoms Genitourinary: Reports: no symptoms Neurologic/Psychiatric: Reports: no symptoms Endocrine: Reports: no symptoms Hematologic/Lymphatic: Reports: no symptoms Allergies: Coded Allergies: No Known Allergies (Unverified , 09/26/12) All Systems: reviewed and negative except above Subjective remains sob. doesnt really feel any better. desaturates into the 50s of o2. no chest pain . Objective Last 24 Hour Vital Signs Date Time Temp Pulse Resp B/P Pulse Ox O2 Delivery O2 Flow Rate FiO2 12/16/16 07:49 67 18 96 Nasal Cannula 2.0 28 12/16/16 07:49 67 18 96 Nasal Cannula 2.0 28 12/16/16 07:35 98.6 74 20 116/53 92 Nasal Cannula 2.0 12/16/16 07:34 Nasal Cannula 5.0 40 12/16/16 07:34 97 Nasal Cannula 5.0 40 12/16/16 06:07 78 126/48 12/16/16 04:01 98.3 94 19 135/59 98 Nasal Cannula 2.0 12/16/16 04:00 90 12/16/16 03:19 67 20 96 Nasal Cannula 2.0 28 12/16/16 03:09 72 20 92 Nasal Cannula 2.0 28 12/16/16 00:29 72 20 97 Nasal Cannula 2.0 28 12/16/16 00:19 67 22 93 Nasal Cannula 5.0 40 12/16/16 00:01 98.1 79 20 125/59 93 Nasal Cannula 12/16/16 00:00 73 12/15/16 23:49 Nasal Cannula 12/15/16 23:48 Nasal Cannula 12/15/16 21:37 79 124/56 12/15/16 20:00 97.7 68 18 112/63 Nasal Cannula 2.0 96 12/15/16 20:00 82 12/15/16 19:59 73 22 98 Nasal Cannula 5.0 12/15/16 19:55 Nasal Cannula 5.0 40 12/15/16 19:54 96 Nasal Cannula 5.0 40 12/15/16 19:49 57 22 96 Nasal Cannula 5.0 32 12/15/16 19:00 69 20 Nasal Cannula 5.0 40 12/15/16 16:00 87 12/15/16 16:00 97.9 84 18 109/60 Nasal Cannula 12/15/16 15:50 76 23 98 Nasal Cannula 5.0 12/15/16 15:40 78 20 96 Nasal Cannula 5.0 12/15/16 13:24 78 101/52 12/15/16 12:00 81 12/15/16 11:53 78 23 98 Nasal Cannula 5.0 12/15/16 11:45 75 20 96 Nasal Cannula 5.0 12/15/16 11:29 97.2 70 22 101/52 95 Nasal Cannula 4.0 Intake and Output 12/15/16 12/16/16 19:00 07:00 Intake Total 120 ml Output Total 1500 ml 800 ml Balance -1380 ml -800 ml Intake Oral 120 ml Output Urine Total 1500 ml 800 ml Laboratory Tests 12/15/16 10:10: Arterial Blood pH 7.337L, Arterial Blood Partial Pressure CO2 68.3*H, Arterial Blood Partial Pressure O2 94.7, Arterial Blood HCO3 35.8H, Arterial Blood Oxygen Saturation 96.6, Arterial Blood Base Excess 7.4, Maxi Test Positive 12/16/16 08:56: Arterial Blood pH 7.466H, Arterial Blood Partial Pressure CO2 56.7*H, Arterial Blood Partial Pressure O2 60.9L, Arterial Blood HCO3 40.0H, Arterial Blood Oxygen Saturation 90.7L, Arterial Blood Base Excess 13.8, Maxi Test Positive Height (Feet): 5 Height (Inches): 10.00 Weight (Pounds): 130 Objective General Appearance: WD/WN, alert, confused EENT: PERRL/EOMI, normal ENT inspection Neck: supple Cardiovascular: regular rhythm Respiratory/Chest: lungs clear, normal breath sounds, no respiratory distress, no accessory muscle use Abdomen: normal bowel sounds, non tender, soft, no organomegaly, no mass Edema: no edema noted Arm (L), no edema noted Arm (R), no edema noted Leg (L), no edema noted Leg (R), no edema noted Pedal (L), no edema noted Pedal (R), no edema noted Generalized CRYSTAL FOSTER Dec 16, 2016 09:14
--- NOTE | 2016-12-16 10:09 | General Progress Note ---
Assessment/Plan Assessment/Plan Assessment - Atypical CP - COPD - hypothyroid on PTU - GERD - matthieu esophagitis Recommendations - push po - elevate HOB - PPI - Nystatin Subjective Allergies: Coded Allergies: No Known Allergies (Unverified , 09/26/12) Subjective No new problems confused Tolerating PO Objective Last 24 Hour Vital Signs Date Time Temp Pulse Resp B/P Pulse Ox O2 Delivery O2 Flow Rate FiO2 12/16/16 07:49 67 18 96 Nasal Cannula 2.0 28 12/16/16 07:49 67 18 96 Nasal Cannula 2.0 28 12/16/16 07:35 98.6 74 20 116/53 92 Nasal Cannula 2.0 12/16/16 07:34 Nasal Cannula 5.0 40 12/16/16 07:34 97 Nasal Cannula 5.0 40 12/16/16 06:07 78 126/48 12/16/16 04:01 98.3 94 19 135/59 98 Nasal Cannula 2.0 12/16/16 04:00 90 12/16/16 03:19 67 20 96 Nasal Cannula 2.0 28 12/16/16 03:09 72 20 92 Nasal Cannula 2.0 28 12/16/16 00:29 72 20 97 Nasal Cannula 2.0 28 12/16/16 00:19 67 22 93 Nasal Cannula 5.0 40 12/16/16 00:01 98.1 79 20 125/59 93 Nasal Cannula 12/16/16 00:00 73 12/15/16 23:49 Nasal Cannula 12/15/16 23:48 Nasal Cannula 12/15/16 21:37 79 124/56 12/15/16 20:00 97.7 68 18 112/63 Nasal Cannula 2.0 96 12/15/16 20:00 82 12/15/16 19:59 73 22 98 Nasal Cannula 5.0 12/15/16 19:55 Nasal Cannula 5.0 40 12/15/16 19:54 96 Nasal Cannula 5.0 40 12/15/16 19:49 57 22 96 Nasal Cannula 5.0 32 12/15/16 19:00 69 20 Nasal Cannula 5.0 40 12/15/16 16:00 87 12/15/16 16:00 97.9 84 18 109/60 Nasal Cannula 12/15/16 15:50 76 23 98 Nasal Cannula 5.0 12/15/16 15:40 78 20 96 Nasal Cannula 5.0 12/15/16 13:24 78 101/52 12/15/16 12:00 81 12/15/16 11:53 78 23 98 Nasal Cannula 5.0 12/15/16 11:45 75 20 96 Nasal Cannula 5.0 12/15/16 11:29 97.2 70 22 101/52 95 Nasal Cannula 4.0 Intake and Output 12/15/16 12/16/16 19:00 07:00 Intake Total 120 ml Output Total 1500 ml 800 ml Balance -1380 ml -800 ml Intake Oral 120 ml Output Urine Total 1500 ml 800 ml Laboratory Tests 12/15/16 10:10: Arterial Blood pH 7.337L, Arterial Blood Partial Pressure CO2 68.3*H, Arterial Blood Partial Pressure O2 94.7, Arterial Blood HCO3 35.8H, Arterial Blood Oxygen Saturation 96.6, Arterial Blood Base Excess 7.4, Maxi Test Positive 12/16/16 08:56: Arterial Blood pH 7.466H, Arterial Blood Partial Pressure CO2 56.7*H, Arterial Blood Partial Pressure O2 60.9L, Arterial Blood HCO3 40.0H, Arterial Blood Oxygen Saturation 90.7L, Arterial Blood Base Excess 13.8, Maxi Test Positive Height (Feet): 5 Height (Inches): 10.00 Weight (Pounds): 130 Objective Elderly WM NCAT supple CTA except occ ronchi RRR Soft NT ND no edema non focal PEE TINOCO Dec 16, 2016 10:09
[2016-12-16 11:21] VITALS: BP 135/60
[2016-12-16 16:00] VITALS: BP 110/63
[2016-12-16] MEDS: Montelukast 10mg tablet ORAL SCH (17:09)
[2016-12-16 20:00] VITALS: BP 129/71
[2016-12-16] MEDS: Tamsulosin 0.4mg cap ORAL SCH (22:05)
[2016-12-17] VITALS: BP 139/87
--- NOTE | 2016-12-17 02:29 | Progress Note ---
DATE: 12/16/2016 CARDIOLOGY PROGRESS NOTE: SUBJECTIVE: The patient had episodes of respiratory distress. The patient had some episodes of desaturation and associated bradycardia. The patient remained hemodynamically stable. OBJECTIVE: VITAL SIGNS: Blood pressure is 116/53, pulse rate 74, respiratory rate 20, and afebrile. NECK: Supple. LUNGS: Coarse breath sounds and rhonchi. CARDIAC: Regular rhythm and rate. Normal S1 and S2. ABDOMEN: Soft. EXTREMITIES: No edema. LABORATORY DATA: Arterial blood gas, pH is 7.46, pCO2 57, and pO2 61. IMPRESSION: 1. Chronic obstructive pulmonary disease. 2. Paroxysmal bronchospasm. 3. Acute on chronic respiratory acidosis. 4. Paroxysmal atrial ectopy. 5. Sinus node disease. PLAN: 1. Optimize respiratory parameters as primary. 2. Arrhythmias are secondary to respiratory decompensation. 3. We will continue following closely and adjust respiratory regimen including bronchodilators, steroids, and oxygen delivery. Farhad Esparza M.D. DR: Suzanna JOB#: [id number] CC:
[2016-12-17] MEDS: DuoNeb 0.5-3(2.5)mg/3ml neb HHN SCH ×6 (03:24→23:00)
[2016-12-17 04:07] VITALS: BP 143/79
[2016-12-17] MEDS: Pancrease Cap ORAL SCH ×3 (06:38→17:09)
[2016-12-17 08:10] VITALS: BP 149/75
--- NOTE | 2016-12-17 08:23 | Pulmonology Progress Note ---
Assessment/Plan Assessment/Plan PROBLEM LIST: 1. Chronic obstructive pulmonary disease with acute exacerbation. 2. Hypoxemic respiratory failure 3. Tracheobronchitis. 4. Urinary tract infection. 5. Benign prostatic hyperplasia 6. Hypertension. 7. Hyperlipidemia. 8. Aortic Stenosis 9. History of pancreatic insufficiency. 10. Grave's disease 11. CHF 12. GIB possible 13. chest pain 14. possible esophagitis TREATMENT PLAN: respiratory care on solumedrol; taper cards noted and reviewed ABG noted oxygen care monitor for change stabilize for now close follow up and monitor dc planning next 1-2 days if improved impression, plan, and exam edited and reviewed in detail care discussed with RN Subjective Allergies: Coded Allergies: No Known Allergies (Unverified , 09/26/12) Subjective stable shortness of breath cards noted no distress Objective Last 24 Hour Vital Signs Date Time Temp Pulse Resp B/P Pulse Ox O2 Delivery O2 Flow Rate FiO2 12/17/16 08:10 97.9 98 22 149/75 94 Nasal Cannula 3.0 12/17/16 07:16 82 20 94 Nasal Cannula 3.0 32 12/17/16 07:06 92 Nasal Cannula 3.0 32 12/17/16 07:06 Nasal Cannula 3.0 32 12/17/16 07:06 75 20 95 Nasal Cannula 3.0 32 12/17/16 06:38 98 145/79 12/17/16 04:07 97.0 125 19 143/79 94 Nasal Cannula 3.0 12/17/16 04:00 83 12/17/16 03:36 70 20 96 Nasal Cannula 2.0 28 12/17/16 03:23 76 24 96 Nasal Cannula 3.0 32 12/17/16 00:00 97.9 102 20 139/87 90 Room Air 12/17/16 00:00 95 12/16/16 23:20 73 20 95 Nasal Cannula 3.0 32 12/16/16 23:09 69 20 96 Nasal Cannula 4.0 36 12/16/16 22:05 78 129/71 12/16/16 20:00 81 12/16/16 20:00 97.7 78 18 129/71 Nasal Cannula 12/16/16 19:27 78 18 98 Nasal Cannula 4.0 36 12/16/16 19:13 Nasal Cannula 5.0 40 12/16/16 19:13 71 20 95 Nasal Cannula 5.0 40 12/16/16 19:13 95 Nasal Cannula 5.0 40 12/16/16 16:00 97.9 66 18 110/63 Nasal Cannula 2.0 95 12/16/16 16:00 67 12/16/16 15:23 73 18 97 Nasal Cannula 5.0 40 12/16/16 15:16 69 18 96 Nasal Cannula 5.0 40 12/16/16 13:49 83 135/60 12/16/16 12:00 86 12/16/16 11:21 98.2 83 20 135/60 94 Venturi Mask 12/16/16 10:52 91 20 93 Venturi Mask 10.0 45 12/16/16 10:50 91 20 93 Venturi Mask 10.0 45 Intake and Output 12/16/16 12/17/16 19:00 07:00 Intake Total 465 ml Output Total 250 ml 375 ml Balance 215 ml -375 ml Intake Oral 465 ml Output Urine Total 250 ml 375 ml Objective WDWN NAD EOMI reduced breath sounds bilaterally no rhonchi or wheeze [id number] without MRG NABS nontender no HSM no CCE nonfocal alert on oxygen and comfortable at present Laboratory Tests 12/16/16 08:56: Arterial Blood pH 7.466H, Arterial Blood Partial Pressure CO2 56.7*H, Arterial Blood Partial Pressure O2 60.9L, Arterial Blood HCO3 40.0H, Arterial Blood Oxygen Saturation 90.7L, Arterial Blood Base Excess 13.8, Maxi Test Positive Current Medications Medications (Trade) Dose Ordered Sig/Larissa Route PRN Reason Start Time Stop Time Status Last Admin Dose Admin Albuterol/ Ipratropium (DuoNeb 0.5-3(2.5)mg/3ml) 3 ml Q4HRT HHN 12/16/16 03:00 12/21/16 02:59 12/17/16 07:06 Amylase/Lipase/ Protease (Pancrease) 1 ea TIAC ORAL 12/11/16 06:30 01/10/17 06:29 12/17/16 06:38 Atorvastatin Calcium (Lipitor) 10 mg BEDTIME ORAL 12/10/16 21:00 01/09/17 20:59 12/16/16 22:02 Diltiazem HCl (Cardizem) 60 mg EVERY 8 HOURS ORAL 12/10/16 22:00 01/09/17 21:59 12/17/16 06:38 Escitalopram Oxalate (Lexapro) 20 mg DAILY ORAL 12/11/16 09:00 01/10/17 08:59 12/16/16 08:38 Finasteride (Proscar) 5 mg DAILY ORAL 12/11/16 09:00 01/10/17 08:59 12/16/16 08:38 Haloperidol Lactate (Haldol) 1 mg Q6H PRN IM Agitation 12/12/16 08:45 01/11/17 08:44 12/16/16 09:59 Levofloxacin (Levaquin) 250 mg Q24H ORAL 12/11/16 18:00 12/17/16 23:59 12/16/16 17:09 Lorazepam (Ativan) 0.5 mg TIDPRN PRN ORAL For Anxiety 12/10/16 18:00 12/17/16 17:59 12/13/16 05:30 Magnesium Hydroxide (Mom) 30 ml DAILYPRN PRN ORAL Constipation 12/10/16 18:00 01/09/17 17:59 Methylprednisolone Sodium Succinate (Solu-MEDROL) 60 mg EVERY 12 HOURS IVP 12/14/16 12:00 01/13/17 11:59 12/16/16 22:01 Montelukast Sodium (Singulair) 10 mg QPM ORAL 12/11/16 16:30 01/10/17 16:29 12/16/16 17:09 Nebivolol (Bystolic) 10 mg DAILY ORAL 12/11/16 09:00 01/10/17 08:59 12/16/16 08:37 Nitroglycerin (Ntg) 0.4 mg Q5M PRN SL Prn Chest Pain 12/10/16 18:00 01/09/17 17:59 Nystatin (Nystatin) 5 ml QHS ORAL 12/14/16 21:00 12/21/16 20:59 12/16/16 22:04 Nystatin (Nystatin) 5 ml TIPC ORAL 12/14/16 13:00 12/21/16 12:59 12/16/16 17:09 Pantoprazole (Protonix) 40 mg DAILY ORAL 12/11/16 09:00 01/10/17 08:59 12/16/16 08:38 Propylthiouracil (Ptu) 50 mg Q12HR ORAL 12/15/16 09:00 01/14/17 08:59 12/16/16 22:02 Tamsulosin HCl (Flomax) 0.4 mg BEDTIME ORAL 12/10/16 21:00 01/09/17 20:59 12/16/16 22:05 Zolpidem Tartrate (Ambien) 5 mg HSPRN PRN ORAL Insomnia 12/10/16 18:00 01/09/17 17:59 TAVO SMITH Dec 17, 2016 08:23
--- NOTE | 2016-12-17 08:27 | Endoscopy Procedure Note ---
Endoscopy Procedure Note Indication for Procedure: UGIB Procedures Performed: EGD Operative Findings/Diagnosis: GERD and matthieu esophagitis Specimen: yes Pt Tolerated Procedure Well: Yes Estimated Blood Loss: none Anesthesiologist: present Anesthesia: MAC Implant(s) used?: No 50 yrs or older w/o bx or poly: Not Applicable 10yrs. F/U not recommended: Not Applicable If not recommended, why?: PEE TINOCO Dec 17, 2016 08:27
--- NOTE | 2016-12-17 08:28 | Brief Operative Note ---
Immediate Post Operative Note Operative Note Chief Complaint: UGIB Pre-op Diagnosis: dysphagia, vomiting Procedure: EGD Post-op Diagnosis: GERD and matthieu esophagitis Surgeon: wade Anesthesiologist: see report Anesthesia: MAC Specimen: none Complications: none Condition: stable Estimated Blood Loss: none Drains: none Implant(s) used?: No PEE TINOCO Dec 17, 2016 08:28
[2016-12-17] MEDS: Nystatin Susp 500,000 units/5ml ORAL SCH ×4 (09:03→21:01)
[2016-12-17] MEDS: Propylthiouracil 50mg tab ORAL SCH ×2 (09:04→21:00)
[2016-12-17] MEDS: Solu-MEDROL 125mg Inj IVP SCH (09:04)
--- NOTE | 2016-12-17 10:29 | Operative Note - Dictated ---
GASTROENTEROLOGY PROCEDURE REPORT: DATE OF PROCEDURE: 12/16/2016 SURGEON: Beverly Ramirez M.D. ANESTHESIA: Please see the separate anesthesiologist notes for details. PRE-ENDOSCOPIC DIAGNOSIS: Upper gastrointestinal bleed. POST-ENDOSCOPIC DIAGNOSES: 1. Gastroesophageal reflux disease with reflux erosions lower esophagus. 2. Kaylyn esophageal colonization. PROCEDURE: The procedure, its risks, indications, alternatives, and possible complications were explained to the family and informed consent was obtained. The endoscope was introduced into oropharynx and advanced to the duodenum. The endoscope was then gradually withdrawn and the mucosa examined carefully. Findings were as listed above. The endoscope was removed. The patient was sent to recovery in good condition. COMPLICATIONS: None. RECOMMENDATIONS: 1. Reflux precautions. 2. Proton pump inhibitor. 3. Nystatin. 4. Resume oral diet. 5. Follow laboratory parameters and exam. Thank you for asking me to participate in the care of this patient. Beverly Ramirez M.D. DR: Sulaiman JOB#: [id number] CC:
--- NOTE | 2016-12-17 10:39 | General Progress Note ---
Assessment/Plan Problem List: (1) GI bleed ICD Codes: K92.2 - Gastrointestinal hemorrhage, unspecified SNOMED: 25401530 (2) Encephalopathy acute ICD Codes: G93.40 - Encephalopathy, unspecified SNOMED: 5953631 (3) Esophagitis ICD Codes: K20.9 - Esophagitis, unspecified SNOMED: 33803230 (4) COPD (chronic obstructive pulmonary disease) ICD Codes: J44.9 - Chronic obstructive pulmonary disease, unspecified SNOMED: 94663893 Assessment/Plan iv steroids- wean per pulm resp care o2 ppi rx pos as tolerated anxiolytics as needed consider aru or snf Subjective ROS Limited/Unobtainable: No Constitutional: Reports: malaise, weakness HEENT: Reports: no symptoms Cardiovascular: Reports: no symptoms Respiratory: Reports: cough, shortness of breath, wheezing Gastrointestinal/Abdominal: Reports: no symptoms Genitourinary: Reports: no symptoms Neurologic/Psychiatric: Reports: anxiety Endocrine: Reports: no symptoms Hematologic/Lymphatic: Reports: no symptoms Allergies: Coded Allergies: No Known Allergies (Unverified , 09/26/12) All Systems: reviewed and negative except above Subjective less sob this am. on resp rx, o2 and steroids. . Objective Last 24 Hour Vital Signs Date Time Temp Pulse Resp B/P Pulse Ox O2 Delivery O2 Flow Rate FiO2 12/17/16 08:10 97.9 98 22 149/75 94 Nasal Cannula 3.0 12/17/16 08:00 94 12/17/16 07:16 82 20 94 Nasal Cannula 3.0 32 12/17/16 07:06 92 Nasal Cannula 3.0 32 12/17/16 07:06 Nasal Cannula 3.0 32 12/17/16 07:06 75 20 95 Nasal Cannula 3.0 32 12/17/16 06:38 98 145/79 12/17/16 04:07 97.0 125 19 143/79 94 Nasal Cannula 3.0 12/17/16 04:00 83 12/17/16 03:36 70 20 96 Nasal Cannula 2.0 28 12/17/16 03:23 76 24 96 Nasal Cannula 3.0 32 12/17/16 00:00 97.9 102 20 139/87 90 Room Air 12/17/16 00:00 95 12/16/16 23:20 73 20 95 Nasal Cannula 3.0 32 12/16/16 23:09 69 20 96 Nasal Cannula 4.0 36 12/16/16 22:05 78 129/71 12/16/16 20:00 81 12/16/16 20:00 97.7 78 18 129/71 Nasal Cannula 12/16/16 19:27 78 18 98 Nasal Cannula 4.0 36 12/16/16 19:13 Nasal Cannula 5.0 40 12/16/16 19:13 71 20 95 Nasal Cannula 5.0 40 12/16/16 19:13 95 Nasal Cannula 5.0 40 12/16/16 16:00 97.9 66 18 110/63 Nasal Cannula 2.0 95 12/16/16 16:00 67 12/16/16 15:23 73 18 97 Nasal Cannula 5.0 40 12/16/16 15:16 69 18 96 Nasal Cannula 5.0 40 12/16/16 13:49 83 135/60 12/16/16 12:00 86 12/16/16 11:21 98.2 83 20 135/60 94 Venturi Mask 12/16/16 10:52 91 20 93 Venturi Mask 10.0 45 12/16/16 10:50 91 20 93 Venturi Mask 10.0 45 Intake and Output 12/16/16 12/17/16 19:00 07:00 Intake Total 465 ml Output Total 250 ml 375 ml Balance 215 ml -375 ml Intake Oral 465 ml Output Urine Total 250 ml 375 ml Height (Feet): 5 Height (Inches): 10.00 Weight (Pounds): 130 Objective General Appearance: WD/WN, alert, confused EENT: PERRL/EOMI, normal ENT inspection Neck: supple Cardiovascular: regular rhythm Respiratory/Chest: lungs clear, normal breath sounds, no respiratory distress, no accessory muscle use Abdomen: normal bowel sounds, non tender, soft, no organomegaly, no mass Edema: no edema noted Arm (L), no edema noted Arm (R), no edema noted Leg (L), no edema noted Leg (R), no edema noted Pedal (L), no edema noted Pedal (R), no edema noted Generalized CRYSTAL FOSTER Dec 17, 2016 10:39
[2016-12-17 12:39] VITALS: BP 121/61
--- NOTE | 2016-12-17 15:24 | General Progress Note ---
Assessment/Plan Assessment/Plan Assessment - Atypical CP - COPD - hypothyroid on PTU - GERD - matthieu esophagitis Recommendations - push po - elevate HOB - PPI - Nystatin Subjective Allergies: Coded Allergies: No Known Allergies (Unverified , 09/26/12) Subjective No new problems awake Tolerating PO Objective Last 24 Hour Vital Signs Date Time Temp Pulse Resp B/P Pulse Ox O2 Delivery O2 Flow Rate FiO2 12/17/16 15:07 72 20 94 Nasal Cannula 3.0 32 12/17/16 13:40 84 121/61 12/17/16 12:39 97.5 84 20 121/61 94 Nasal Cannula 3.0 12/17/16 12:00 88 12/17/16 11:07 72 20 93 Nasal Cannula 3.0 32 12/17/16 10:58 68 20 93 Nasal Cannula 3.0 32 12/17/16 08:10 97.9 98 22 149/75 94 Nasal Cannula 3.0 12/17/16 08:00 94 12/17/16 07:16 82 20 94 Nasal Cannula 3.0 32 12/17/16 07:06 92 Nasal Cannula 3.0 32 12/17/16 07:06 Nasal Cannula 3.0 32 12/17/16 07:06 75 20 95 Nasal Cannula 3.0 32 12/17/16 06:38 98 145/79 12/17/16 04:07 97.0 125 19 143/79 94 Nasal Cannula 3.0 12/17/16 04:00 83 12/17/16 03:36 70 20 96 Nasal Cannula 2.0 28 12/17/16 03:23 76 24 96 Nasal Cannula 3.0 32 12/17/16 00:00 97.9 102 20 139/87 90 Room Air 12/17/16 00:00 95 12/16/16 23:20 73 20 95 Nasal Cannula 3.0 32 12/16/16 23:09 69 20 96 Nasal Cannula 4.0 36 12/16/16 22:05 78 129/71 12/16/16 20:00 81 12/16/16 20:00 97.7 78 18 129/71 Nasal Cannula 12/16/16 19:27 78 18 98 Nasal Cannula 4.0 36 12/16/16 19:13 Nasal Cannula 5.0 40 12/16/16 19:13 71 20 95 Nasal Cannula 5.0 40 12/16/16 19:13 95 Nasal Cannula 5.0 40 12/16/16 16:00 97.9 66 18 110/63 Nasal Cannula 2.0 95 12/16/16 16:00 67 12/16/16 15:23 73 18 97 Nasal Cannula 5.0 40 Intake and Output 12/16/16 12/17/16 19:00 07:00 Intake Total 465 ml Output Total 250 ml 375 ml Balance 215 ml -375 ml Intake Oral 465 ml Output Urine Total 250 ml 375 ml Height (Feet): 5 Height (Inches): 10.00 Weight (Pounds): 130 Objective Elderly WM NCAT supple CTA except occ ronchi RRR Soft NT ND no edema non focal PEE TINOCO Dec 17, 2016 15:24
[2016-12-17 16:00] VITALS: BP 103/49
--- NOTE | 2016-12-17 16:46 | Diagnostic Imaging Report ---
Indications: DYSPHAGIA Technique: Patient ingested multiple substances under the supervision of speech pathology. Video fluoroscopic recording performed. Total fluoroscopy time 234 seconds. Total dose area product [id number] mGycm2 Comparison: none Findings: There is deep there is trace penetration of nectar thick liquid barium and honey thick liquid barium. No rick aspiration. Swallowing of barium pur?e demonstrates residual trace pooling in the therefore sinus and vallecula, otherwise uneventful, no aspiration or penetration. Penetration of thin liquid barium. Impression: Positive for penetration of thin, honey thick, nectar thick liquid barium Please refer to speech pathology report for more thorough analysis
[2016-12-17] MEDS: Montelukast 10mg tablet ORAL SCH (17:09)
[2016-12-17 20:00] VITALS: BP 139/62
[2016-12-17] MEDS: Tamsulosin 0.4mg cap ORAL SCH (21:00)
--- NOTE | 2016-12-17 23:39 | Progress Note ---
DATE: 12/17/2016 CARDIOLOGY PROGRESS NOTE SUBJECTIVE: Diet is started and tolerated. No nausea or vomiting. Monitor reveals sinus rhythm and PACs. OBJECTIVE: VITAL SIGNS: Blood pressure 103/49, pulse 73, and respirations 20. LUNGS: Good breath sounds. No wheezing. CARDIAC: Regular rhythm and rate. Normal S1 and S2. ABDOMEN: Soft. EXTREMITIES: No edema. IMPRESSION: 1. Chronic obstructive pulmonary disease. 2. Paroxysmal atrial ectopy. 3. Esophagitis due to Kaylyn. PLAN: 1. Continue proton pump inhibitor. 2. Respiratory hygiene. 3. Beta-angeles therapy without change. 4. Avoid anti-platelet therapy at this time due to acute GI pathology and ongoing steroid taper. Farhad Esparza M.D. DR: CASEY JOB#: [id number] CC:
[2016-12-18] VITALS: BP 139/90
[2016-12-18] MEDS: DuoNeb 0.5-3(2.5)mg/3ml neb HHN SCH ×6 (02:58→22:40)
[2016-12-18 04:00] VITALS: BP 124/58
[2016-12-18] MEDS: Pancrease Cap ORAL SCH ×3 (06:12→17:56)
[2016-12-18 08:15] VITALS: BP 132/88
--- NOTE | 2016-12-18 08:51 | General Progress Note ---
Assessment/Plan Problem List: (1) GI bleed ICD Codes: K92.2 - Gastrointestinal hemorrhage, unspecified SNOMED: 18367893 (2) Encephalopathy acute ICD Codes: G93.40 - Encephalopathy, unspecified SNOMED: 5174157 (3) Esophagitis ICD Codes: K20.9 - Esophagitis, unspecified SNOMED: 19664098 (4) COPD (chronic obstructive pulmonary disease) ICD Codes: J44.9 - Chronic obstructive pulmonary disease, unspecified SNOMED: 95490929 Status: stable Assessment/Plan iv steroids- wean per pulm resp care o2 ppi rx pos as tolerated anxiolytics as needed aspitration precautions follow up pending labs consider aru or snf Subjective ROS Limited/Unobtainable: Yes Constitutional: Reports: malaise, weakness HEENT: Reports: no symptoms Cardiovascular: Reports: no symptoms Respiratory: Reports: cough, shortness of breath, wheezing Gastrointestinal/Abdominal: Reports: no symptoms Genitourinary: Reports: no symptoms Neurologic/Psychiatric: Reports: anxiety Endocrine: Reports: no symptoms Hematologic/Lymphatic: Reports: no symptoms Allergies: Coded Allergies: No Known Allergies (Unverified , 09/26/12) All Systems: reviewed and negative except above Subjective less sob this am. on resp rx, o2 and steroids. remains intermittently confused. on 3l o2 Objective Last 24 Hour Vital Signs Date Time Temp Pulse Resp B/P Pulse Ox O2 Delivery O2 Flow Rate FiO2 12/18/16 08:15 97.7 109 21 132/88 95 Nasal Cannula 2.0 12/18/16 06:12 75 140/62 12/18/16 04:00 97.7 87 18 124/58 96 Nasal Cannula 2.0 12/18/16 04:00 73 12/18/16 03:06 74 18 96 Nasal Cannula 3.0 32 12/18/16 02:58 73 18 96 Nasal Cannula 3.0 32 12/18/16 00:00 97.6 74 18 139/90 96 Nasal Cannula 2.0 12/18/16 00:00 75 12/17/16 23:40 75 18 95 Nasal Cannula 3.0 32 12/17/16 23:30 75 18 95 Nasal Cannula 3.0 32 12/17/16 21:00 78 139/62 12/17/16 20:00 94 12/17/16 20:00 98.0 78 22 139/62 95 Nasal Cannula 2.0 12/17/16 19:34 94 12/17/16 19:03 71 18 96 Nasal Cannula 3.0 32 12/17/16 18:48 Nasal Cannula 3.0 32 12/17/16 18:48 95 Nasal Cannula 3.0 32 12/17/16 18:48 71 18 95 Nasal Cannula 3.0 32 12/17/16 16:00 75 12/17/16 16:00 97.8 73 20 103/49 92 Nasal Cannula 4.0 12/17/16 15:17 75 20 94 Nasal Cannula 3.0 32 12/17/16 15:07 72 20 94 Nasal Cannula 3.0 32 12/17/16 13:40 84 121/61 12/17/16 12:39 97.5 84 20 121/61 94 Nasal Cannula 3.0 12/17/16 12:00 88 12/17/16 11:40 76 18 96 Nasal Cannula 3.0 32 12/17/16 11:07 72 20 93 Nasal Cannula 3.0 32 12/17/16 10:58 68 20 93 Nasal Cannula 3.0 32 Intake and Output 12/17/16 12/18/16 19:00 07:00 Intake Total 240 ml 260 ml Output Total 200 ml 300 ml Balance 40 ml -40 ml Intake Oral 240 ml 260 ml Output Urine Total 200 ml 300 ml Height (Feet): 5 Height (Inches): 10.00 Weight (Pounds): 130 Objective General Appearance: WD/WN, alert, confused EENT: PERRL/EOMI, normal ENT inspection Neck: supple Cardiovascular: regular rhythm Respiratory/Chest: lungs clear, normal breath sounds, no respiratory distress, no accessory muscle use Abdomen: normal bowel sounds, non tender, soft, no organomegaly, no mass Edema: no edema noted Arm (L), no edema noted Arm (R), no edema noted Leg (L), no edema noted Leg (R), no edema noted Pedal (L), no edema noted Pedal (R), no edema noted Generalized CRYSTAL FOSTER Dec 18, 2016 08:51
[2016-12-18] MEDS: Solu-MEDROL 125mg Inj IVP SCH (09:11)
[2016-12-18] MEDS: Propylthiouracil 50mg tab ORAL SCH ×2 (09:11→21:30)
[2016-12-18] MEDS: Nystatin Susp 500,000 units/5ml ORAL SCH ×4 (09:12→21:30)
[2016-12-18 09:27] LABS: MEAN CORPUSCULAR HEMOGLOBIN 30.3 PG (27.0-31.0); MEAN CORPUSCULAR VOLUME 92 FL (80-99); MEAN PLATELET VOLUME 7.1 FL (6.5-10.1); PLATELET COUNT 127 K/UL (150-450); RED CELL DISTRIBUTION WIDTH 12.1 % (11.6-14.8); WHITE BLOOD COUNT 10.1 K/UL (4.8-10.8)
[2016-12-18 09:47] LABS: CALCIUM 8.1 mg/dL (8.6-10.2)
[2016-12-18 09:50] LABS: ALANINE AMINOTRANSFERASE 25 U/L (3-41); ALBUMIN/GLOBULIN RATIO 2.1 (1.0-2.7); ASPARTATE AMINO TRANSFERASE 13 U/L (5-40); CHLORIDE 96 mEQ/L (98-107); CREATININE 0.5 mg/dL (0.7-1.2); HEMOLYSIS 4; POTASSIUM 3.4 mEQ/L (3.4-4.9); SODIUM 142 mEQ/L (135-145); TOTAL PROTEIN 4.1 g/dL (6.6-8.7)
[2016-12-18 09:54] LABS: ANION GAP 5 (5-15)
--- NOTE | 2016-12-18 09:57 | Pulmonology Progress Note ---
Assessment/Plan Assessment/Plan PROBLEM LIST: 1. Chronic obstructive pulmonary disease with acute exacerbation. 2. Hypoxemic respiratory failure 3. Tracheobronchitis. 4. Urinary tract infection. 5. Benign prostatic hyperplasia 6. Hypertension. 7. Hyperlipidemia. 8. Aortic Stenosis 9. History of pancreatic insufficiency. 10. Grave's disease 11. CHF 12. GIB possible 13. chest pain 14. possible esophagitis TREATMENT PLAN: respiratory care on solumedrol 30mg; taper cards noted and reviewed ABG noted oxygen care monitor for change stabilize for now close follow up and monitor dc planning impression, plan, and exam edited and reviewed in detail care discussed with RN Subjective Allergies: Coded Allergies: No Known Allergies (Unverified , 09/26/12) Subjective some shortness of breath cards noted no distress agree with rehab Objective Last 24 Hour Vital Signs Date Time Temp Pulse Resp B/P Pulse Ox O2 Delivery O2 Flow Rate FiO2 12/18/16 08:15 97.7 109 21 132/88 95 Nasal Cannula 2.0 12/18/16 06:12 75 140/62 12/18/16 04:00 97.7 87 18 124/58 96 Nasal Cannula 2.0 12/18/16 04:00 73 12/18/16 03:06 74 18 96 Nasal Cannula 3.0 32 12/18/16 02:58 73 18 96 Nasal Cannula 3.0 32 12/18/16 00:00 97.6 74 18 139/90 96 Nasal Cannula 2.0 12/18/16 00:00 75 12/17/16 23:40 75 18 95 Nasal Cannula 3.0 32 12/17/16 23:30 75 18 95 Nasal Cannula 3.0 32 12/17/16 21:00 78 139/62 12/17/16 20:00 94 12/17/16 20:00 98.0 78 22 139/62 95 Nasal Cannula 2.0 12/17/16 19:34 94 12/17/16 19:03 71 18 96 Nasal Cannula 3.0 32 12/17/16 18:48 Nasal Cannula 3.0 32 12/17/16 18:48 95 Nasal Cannula 3.0 32 12/17/16 18:48 71 18 95 Nasal Cannula 3.0 32 12/17/16 16:00 75 12/17/16 16:00 97.8 73 20 103/49 92 Nasal Cannula 4.0 12/17/16 15:17 75 20 94 Nasal Cannula 3.0 32 12/17/16 15:07 72 20 94 Nasal Cannula 3.0 32 12/17/16 13:40 84 121/61 12/17/16 12:39 97.5 84 20 121/61 94 Nasal Cannula 3.0 12/17/16 12:00 88 12/17/16 11:40 76 18 96 Nasal Cannula 3.0 32 12/17/16 11:07 72 20 93 Nasal Cannula 3.0 32 12/17/16 10:58 68 20 93 Nasal Cannula 3.0 32 Intake and Output 12/17/16 12/18/16 19:00 07:00 Intake Total 240 ml 260 ml Output Total 200 ml 300 ml Balance 40 ml -40 ml Intake Oral 240 ml 260 ml Output Urine Total 200 ml 300 ml Objective WDWN NAD EOMI reduced breath sounds bilaterally no rhonchi or wheeze [id number] without MRG NABS nontender no HSM no CCE nonfocal alert on oxygen Laboratory Tests 12/18/16 09:05: White Blood Count 10.1, Red Blood Count 4.00L, Hemoglobin 12.1L, Hematocrit 36.7L, Mean Corpuscular Volume 92, Mean Corpuscular Hemoglobin 30.3, Mean Corpuscular Hemoglobin Concent 33.0, Red Cell Distribution Width 12.1, Platelet Count 127L, Mean Platelet Volume 7.1, Neutrophils (%) (Auto) , Lymphocytes (%) ( Auto) , Monocytes (%) (Auto) , Eosinophils (%) (Auto) , Basophils (%) (Auto) , Neutrophils % (Manual) [Pending], Lymphocytes % (Manual) [Pending], Platelet Estimate [Pending], Platelet Morphology [Pending], Sodium Level [Pending], Potassium Level [Pending], Chloride Level [Pending], Carbon Dioxide Level [ Pending], Blood Urea Nitrogen [Pending], Creatinine [Pending], Estimat Glomerular Filtration Rate [Pending], Glucose Level [Pending], Calcium Level [ Pending], Total Bilirubin [Pending], Aspartate Amino Transf (AST/SGOT) [Pending] , Alanine Aminotransferase (ALT/SGPT) [Pending], Alkaline Phosphatase [Pending] , Total Protein [Pending], Albumin [Pending], Globulin [Pending] Current Medications Medications (Trade) Dose Ordered Sig/Larissa Route PRN Reason Start Time Stop Time Status Last Admin Dose Admin Albuterol/ Ipratropium (DuoNeb 0.5-3(2.5)mg/3ml) 3 ml Q4HRT HHN 12/16/16 03:00 12/21/16 02:59 12/18/16 02:58 Amylase/Lipase/ Protease (Pancrease) 1 ea TIAC ORAL 12/11/16 06:30 01/10/17 06:29 12/18/16 06:12 Atorvastatin Calcium (Lipitor) 10 mg BEDTIME ORAL 12/10/16 21:00 01/09/17 20:59 12/17/16 21:00 Diltiazem HCl (Cardizem) 60 mg EVERY 8 HOURS ORAL 12/10/16 22:00 01/09/17 21:59 12/18/16 06:12 Escitalopram Oxalate (Lexapro) 20 mg DAILY ORAL 12/11/16 09:00 01/10/17 08:59 12/18/16 09:11 Finasteride (Proscar) 5 mg DAILY ORAL 12/11/16 09:00 01/10/17 08:59 12/18/16 09:11 Haloperidol Lactate (Haldol) 1 mg Q6H PRN IM Agitation 12/12/16 08:45 01/11/17 08:44 12/16/16 09:59 Magnesium Hydroxide (Mom) 30 ml DAILYPRN PRN ORAL Constipation 12/10/16 18:00 01/09/17 17:59 Methylprednisolone Sodium Succinate (Solu-MEDROL) 60 mg DAILY IVP 12/17/16 09:00 01/16/17 08:59 12/18/16 09:11 Montelukast Sodium (Singulair) 10 mg QPM ORAL 12/11/16 16:30 01/10/17 16:29 12/17/16 17:09 Nebivolol (Bystolic) 10 mg DAILY ORAL 12/11/16 09:00 01/10/17 08:59 12/18/16 09:12 Nitroglycerin (Ntg) 0.4 mg Q5M PRN SL Prn Chest Pain 12/10/16 18:00 01/09/17 17:59 Nystatin (Nystatin) 5 ml QHS ORAL 12/14/16 21:00 12/21/16 20:59 12/17/16 21:01 Nystatin (Nystatin) 5 ml TIPC ORAL 12/14/16 13:00 12/21/16 12:59 12/18/16 09:12 Pantoprazole (Protonix) 40 mg DAILY ORAL 12/11/16 09:00 01/10/17 08:59 12/18/16 09:11 Propylthiouracil (Ptu) 50 mg Q12HR ORAL 12/15/16 09:00 01/14/17 08:59 12/18/16 09:11 Tamsulosin HCl (Flomax) 0.4 mg BEDTIME ORAL 12/10/16 21:00 01/09/17 20:59 12/17/16 21:00 Zolpidem Tartrate (Ambien) 5 mg HSPRN PRN ORAL Insomnia 12/10/16 18:00 01/09/17 17:59 TAVO SMITH Dec 18, 2016 09:57
[2016-12-18 10:04] LABS: BAND NEUTROPHILS % (MANUAL) 0 % (0-8); BASOPHILS % (MANUAL) 1 % (0-2); EOSINOPHILS % (MANUAL) 0 % (0-3); LYMPHOCYTES % (MANUAL) 4 % (20-45); NEUTROPHILS % (MANUAL) 84 % (45-75); PLATELET ESTIMATE DECREASED; PLATELET MORPHOLOGY NORMAL; TOTAL CELLS COUNTED 100
[2016-12-18 10:25] LABS: CARBON DIOXIDE 41 mEQ/L (20-30)
[2016-12-18 12:15] VITALS: BP 110/51
[2016-12-18 16:00] VITALS: BP 116/60
[2016-12-18] MEDS: Montelukast 10mg tablet ORAL SCH (17:56)
[2016-12-18 19:00] VITALS: BP 158/75
[2016-12-18] MEDS: Tamsulosin 0.4mg cap ORAL SCH (21:30)
[2016-12-19] VITALS: BP 111/65
[2016-12-19] MEDS: DuoNeb 0.5-3(2.5)mg/3ml neb HHN SCH ×6 (02:48→22:51)
[2016-12-19 04:00] VITALS: BP 146/76
[2016-12-19] MEDS: Pancrease Cap ORAL SCH ×3 (06:15→16:53)
[2016-12-19 08:00] VITALS: BP 102/52
[2016-12-19] MEDS: Nystatin Susp 500,000 units/5ml ORAL SCH ×4 (08:26→20:07)
[2016-12-19] MEDS: Propylthiouracil 50mg tab ORAL SCH ×2 (08:30→20:07)
[2016-12-19] MEDS ORDERED: Solu-MEDROL 40mg Inj IVP SCH (09:00)
--- NOTE | 2016-12-19 10:29 | Pulmonology Progress Note ---
Assessment/Plan Assessment/Plan PROBLEM LIST: 1. Chronic obstructive pulmonary disease with acute exacerbation. 2. Hypoxemic respiratory failure 3. Tracheobronchitis. 4. Urinary tract infection. 5. Benign prostatic hyperplasia 6. Hypertension. 7. Hyperlipidemia. 8. Aortic Stenosis 9. History of pancreatic insufficiency. 10. Grave's disease 11. CHF 12. GIB possible 13. chest pain 14. possible esophagitis TREATMENT PLAN: respiratory care as is on solumedrol 30mg; dc and start prednisone cards noted and reviewed ABG noted oxygen care monitor for change stabilize for now and follow up close follow up and monitor dc planning to rehab or home impression, plan, and exam edited and reviewed in detail care discussed with RN Subjective Allergies: Coded Allergies: No Known Allergies (Unverified , 09/26/12) Subjective baseline shortness of breath cards noted no distress at present agree with rehab Objective Last 24 Hour Vital Signs Date Time Temp Pulse Resp B/P Pulse Ox O2 Delivery O2 Flow Rate FiO2 12/19/16 08:00 60 12/19/16 08:00 98.1 72 18 102/52 92 Nasal Cannula 2.0 12/19/16 06:15 84 146/76 12/19/16 04:00 67 12/19/16 04:00 97.5 84 20 146/76 95 Nasal Cannula 2.0 12/19/16 03:02 65 18 98 Nasal Cannula 2.0 28 12/19/16 02:51 62 20 96 Nasal Cannula 2.0 28 12/19/16 00:00 68 12/19/16 00:00 97.9 68 20 111/65 91 Nasal Cannula 2.0 12/18/16 22:35 58 18 99 Nasal Cannula 3.0 32 12/18/16 22:30 55 18 94 Nasal Cannula 3.0 32 12/18/16 21:31 69 151/75 12/18/16 20:00 70 12/18/16 19:17 Nasal Cannula 3.0 32 12/18/16 19:00 97.7 51 18 158/75 Nasal Cannula 3.0 12/18/16 18:33 96 Nasal Cannula 3.0 32 12/18/16 18:25 65 18 97 Nasal Cannula 3.0 32 12/18/16 18:20 64 18 94 Nasal Cannula 3.0 32 12/18/16 16:00 62 2/18/17 16:00 98.0 46 16 116/60 94 Nasal Cannula 3.0 12/18/16 15:38 71 18 96 Nasal Cannula 3.0 32 12/18/16 15:30 70 18 95 Nasal Cannula 3.0 32 12/18/16 13:53 67 110/51 12/18/16 12:15 98.1 67 21 110/51 97 Nasal Cannula 2.0 12/18/16 12:00 68 12/18/16 11:39 73 18 96 Nasal Cannula 3.0 32 12/18/16 11:30 73 18 94 Nasal Cannula 3.0 32 Intake and Output 12/18/16 12/19/16 19:00 07:00 Intake Total 240 ml 720 ml Output Total 800 ml 850 ml Balance -560 ml -130 ml Intake Oral 240 ml 720 ml Output Urine Total 800 ml 850 ml Objective WDWN NAD EOMI reduced breath sounds bilaterally no rhonchi or wheeze [id number] without MRG NABS nontender no HSM no CCE nonfocal alert on oxygen and comfortable Current Medications Medications (Trade) Dose Ordered Sig/Larissa Route PRN Reason Start Time Stop Time Status Last Admin Dose Admin Albuterol/ Ipratropium (DuoNeb 0.5-3(2.5)mg/3ml) 3 ml Q4HRT HHN 12/16/16 03:00 12/21/16 02:59 12/19/16 07:17 Amylase/Lipase/ Protease (Pancrease) 1 ea TIAC ORAL 12/11/16 06:30 01/10/17 06:29 12/19/16 06:15 Atorvastatin Calcium (Lipitor) 10 mg BEDTIME ORAL 12/10/16 21:00 01/09/17 20:59 12/18/16 21:30 Diltiazem HCl (Cardizem) 60 mg EVERY 8 HOURS ORAL 12/10/16 22:00 01/09/17 21:59 12/19/16 06:15 Escitalopram Oxalate (Lexapro) 20 mg DAILY ORAL 12/11/16 09:00 01/10/17 08:59 12/19/16 08:38 Finasteride (Proscar) 5 mg DAILY ORAL 12/11/16 09:00 01/10/17 08:59 12/19/16 08:30 Haloperidol Lactate (Haldol) 1 mg Q6H PRN IM Agitation 12/12/16 08:45 01/11/17 08:44 12/16/16 09:59 Magnesium Hydroxide (Mom) 30 ml DAILYPRN PRN ORAL Constipation 12/10/16 18:00 01/09/17 17:59 Methylprednisolone Sodium Succinate (Solu-MEDROL) 30 mg DAILY IVP 12/19/16 09:00 01/18/17 08:59 12/19/16 08:32 Montelukast Sodium (Singulair) 10 mg QPM ORAL 12/11/16 16:30 01/10/17 16:29 12/18/16 17:56 Nebivolol (Bystolic) 10 mg DAILY ORAL 12/11/16 09:00 01/10/17 08:59 12/18/16 09:12 Nitroglycerin (Ntg) 0.4 mg Q5M PRN SL Prn Chest Pain 12/10/16 18:00 01/09/17 17:59 Nystatin (Nystatin) 5 ml QHS ORAL 12/14/16 21:00 12/21/16 20:59 12/18/16 21:30 Nystatin (Nystatin) 5 ml TIPC ORAL 12/14/16 13:00 12/21/16 12:59 12/19/16 08:26 Pantoprazole (Protonix) 40 mg DAILY ORAL 12/11/16 09:00 01/10/17 08:59 12/19/16 08:30 Propylthiouracil (Ptu) 50 mg Q12HR ORAL 12/15/16 09:00 01/14/17 08:59 12/19/16 08:30 Tamsulosin HCl (Flomax) 0.4 mg BEDTIME ORAL 12/10/16 21:00 01/09/17 20:59 12/18/16 21:30 Zolpidem Tartrate (Ambien) 5 mg HSPRN PRN ORAL Insomnia 12/10/16 18:00 01/09/17 17:59 TAVO SMITH Dec 19, 2016 10:29
--- NOTE | 2016-12-19 11:04 | General Progress Note ---
Assessment/Plan Problem List: (1) GI bleed ICD Codes: K92.2 - Gastrointestinal hemorrhage, unspecified SNOMED: 24510870 (2) Encephalopathy acute ICD Codes: G93.40 - Encephalopathy, unspecified SNOMED: 1318941 (3) Esophagitis ICD Codes: K20.9 - Esophagitis, unspecified SNOMED: 10496096 (4) COPD (chronic obstructive pulmonary disease) ICD Codes: J44.9 - Chronic obstructive pulmonary disease, unspecified SNOMED: 66891981 Status: stable, progressing Assessment/Plan po steroids- wean per pulm resp care o2 ppi rx pos as tolerated anxiolytics as needed aspitration precautions follow up pending labs consider aru or snf will d/w with family tomorrow Subjective ROS Limited/Unobtainable: No Constitutional: Reports: malaise, weakness HEENT: Reports: no symptoms Cardiovascular: Reports: no symptoms Respiratory: Reports: cough, shortness of breath Gastrointestinal/Abdominal: Reports: no symptoms Genitourinary: Reports: no symptoms Neurologic/Psychiatric: Reports: no symptoms Endocrine: Reports: no symptoms Hematologic/Lymphatic: Reports: anemia Allergies: Coded Allergies: No Known Allergies (Unverified , 09/26/12) All Systems: reviewed and negative except above Subjective less sob this am. on resp rx, o2 and steroids. remains intermittently confused. on 3l o2 pulm noted. slow improvement but getting better Objective Last 24 Hour Vital Signs Date Time Temp Pulse Resp B/P Pulse Ox O2 Delivery O2 Flow Rate FiO2 12/19/16 08:00 60 12/19/16 08:00 98.1 72 18 102/52 92 Nasal Cannula 2.0 12/19/16 07:30 73 19 98 Nasal Cannula 2.0 28 12/19/16 07:17 28 12/19/16 07:17 Nasal Cannula 2.0 28 12/19/16 07:17 68 18 94 Nasal Cannula 2.0 28 12/19/16 07:17 94 Nasal Cannula 2.0 28 12/19/16 06:15 84 146/76 12/19/16 04:00 67 12/19/16 04:00 97.5 84 20 146/76 95 Nasal Cannula 2.0 12/19/16 03:02 65 18 98 Nasal Cannula 2.0 28 12/19/16 02:51 62 20 96 Nasal Cannula 2.0 28 12/19/16 00:00 68 12/19/16 00:00 97.9 68 20 111/65 91 Nasal Cannula 2.0 12/18/16 22:35 58 18 99 Nasal Cannula 3.0 32 12/18/16 22:30 55 18 94 Nasal Cannula 3.0 32 12/18/16 21:31 69 151/75 12/18/16 20:00 70 12/18/16 19:17 Nasal Cannula 3.0 32 12/18/16 19:00 97.7 51 18 158/75 Nasal Cannula 3.0 12/18/16 18:33 96 Nasal Cannula 3.0 32 12/18/16 18:25 65 18 97 Nasal Cannula 3.0 32 12/18/16 18:20 64 18 94 Nasal Cannula 3.0 32 12/18/16 16:00 62 12/18/16 16:00 98.0 46 16 116/60 94 Nasal Cannula 3.0 12/18/16 15:38 71 18 96 Nasal Cannula 3.0 32 12/18/16 15:30 70 18 95 Nasal Cannula 3.0 32 12/18/16 13:53 67 110/51 12/18/16 12:15 98.1 67 21 110/51 97 Nasal Cannula 2.0 12/18/16 12:00 68 12/18/16 11:39 73 18 96 Nasal Cannula 3.0 32 12/18/16 11:30 73 18 94 Nasal Cannula 3.0 32 Intake and Output 12/18/16 12/19/16 19:00 07:00 Intake Total 240 ml 720 ml Output Total 800 ml 850 ml Balance -560 ml -130 ml Intake Oral 240 ml 720 ml Output Urine Total 800 ml 850 ml Height (Feet): 5 Height (Inches): 10.00 Weight (Pounds): 130 Objective General Appearance: WD/WN, alert, confused EENT: PERRL/EOMI, normal ENT inspection Neck: supple Cardiovascular: regular rhythm Respiratory/Chest: lungs clear, normal breath sounds, no respiratory distress, no accessory muscle use Abdomen: normal bowel sounds, non tender, soft, no organomegaly, no mass Edema: no edema noted Arm (L), no edema noted Arm (R), no edema noted Leg (L), no edema noted Leg (R), no edema noted Pedal (L), no edema noted Pedal (R), no edema noted Generalized CRYSTAL FOSTER Dec 19, 2016 11:04
[2016-12-19 12:00] VITALS: BP 122/61
[2016-12-19 16:00] VITALS: BP 109/48
[2016-12-19] MEDS: Montelukast 10mg tablet ORAL SCH (16:53)
[2016-12-19 20:00] VITALS: BP 127/64
[2016-12-19] MEDS: Tamsulosin 0.4mg cap ORAL SCH (20:08)
[2016-12-20] VITALS: BP 107/52
[2016-12-20] MEDS: DuoNeb 0.5-3(2.5)mg/3ml neb HHN SCH ×4 (02:36→15:45)
[2016-12-20 04:00] VITALS: BP 137/58
[2016-12-20] MEDS: Pancrease Cap ORAL SCH ×2 (06:07→12:14)
[2016-12-20 07:07] LABS: BASOPHILS % (AUTO) 1.6 % (0.0-2.0); EOSINOPHILS % (AUTO) 0.1 % (0.0-3.0); LYMPHOCYTES % (AUTO) 3.3 % (20.0-45.0); MEAN CORPUSCULAR HEMOGLOBIN 30.1 PG (27.0-31.0); MEAN CORPUSCULAR HGB CONC 32.4 G/DL (32.0-36.0); MEAN CORPUSCULAR VOLUME 93 FL (80-99); MEAN PLATELET VOLUME 6.7 FL (6.5-10.1); MONOCYTES % (AUTO) 12.6 % (1.0-10.0); NEUTROPHILS % (AUTO) 82.4 % (45.0-75.0); PLATELET COUNT 126 K/UL (150-450); RED BLOOD COUNT 4.35 M/UL (4.70-6.10); RED CELL DISTRIBUTION WIDTH 12.4 % (11.6-14.8); WHITE BLOOD COUNT 15.2 K/UL (4.8-10.8)
[2016-12-20 07:38] LABS: ALANINE AMINOTRANSFERASE 23 U/L (3-41); ALBUMIN/GLOBULIN RATIO 1.8 (1.0-2.7); ASPARTATE AMINO TRANSFERASE 13 U/L (5-40); CALCIUM 8.7 mg/dL (8.6-10.2); CHLORIDE 97 mEQ/L (98-107); CREATININE 0.6 mg/dL (0.7-1.2); HEMOLYSIS 5; POTASSIUM 3.9 mEQ/L (3.4-4.9); SODIUM 144 mEQ/L (135-145); TOTAL PROTEIN 4.8 g/dL (6.6-8.7)
[2016-12-20 07:45] LABS: ANION GAP 7 (5-15); CARBON DIOXIDE 40 mEQ/L (20-30)
--- NOTE | 2016-12-20 07:58 | Pulmonology Progress Note ---
Assessment/Plan Assessment/Plan PROBLEM LIST: 1. Chronic obstructive pulmonary disease with acute exacerbation. 2. Hypoxemic respiratory failure 3. Tracheobronchitis. 4. Urinary tract infection. 5. Benign prostatic hyperplasia 6. Hypertension. 7. Hyperlipidemia. 8. Aortic Stenosis 9. History of pancreatic insufficiency. 10. Grave's disease 11. CHF 12. GIB possible 13. chest pain 14. possible esophagitis TREATMENT PLAN: respiratory care as is medrol dose james ABG noted oxygen care monitor for change stabilize for now and follow up close follow up and monitor dc planning to rehab or home per family decision ?today impression, plan, and exam edited and reviewed in detail care discussed with RN Subjective Allergies: Coded Allergies: No Known Allergies (Unverified , 09/26/12) Subjective no change in shortness of breath cards noted no distress at present agree with rehab Objective Last 24 Hour Vital Signs Date Time Temp Pulse Resp B/P Pulse Ox O2 Delivery O2 Flow Rate FiO2 12/20/16 07:26 32 12/20/16 07:26 69 18 94 Nasal Cannula 2.0 28 12/20/16 07:26 Nasal Cannula 3.0 32 12/20/16 07:26 68 16 96 Nasal Cannula 2.0 28 12/20/16 07:26 94 Nasal Cannula 3.0 32 12/20/16 06:06 73 123/68 12/20/16 04:00 62 12/20/16 04:00 97.0 71 16 137/58 92 Nasal Cannula 2.0 12/20/16 03:03 68 18 97 Nasal Cannula 2.0 28 12/20/16 02:51 64 20 94 Nasal Cannula 3.0 32 12/20/16 02:51 32 12/20/16 00:00 62 12/20/16 00:00 97.0 68 16 107/52 90 Nasal Cannula 2.0 12/19/16 23:00 67 18 98 Nasal Cannula 3.0 32 12/19/16 22:51 68 18 92 Nasal Cannula 3.0 32 12/19/16 22:51 32 12/19/16 22:19 69 127/64 12/19/16 20:00 63 12/19/16 20:00 97.4 69 20 127/64 95 Nasal Cannula 2.0 12/19/16 19:24 65 18 97 Nasal Cannula 3.0 32 2/19/17 19:17 63 18 93 Nasal Cannula 3.0 32 12/19/16 19:17 32 12/19/16 19:17 Nasal Cannula 3.0 32 12/19/16 19:17 94 Nasal Cannula 3.0 32 12/19/16 16:00 71 12/19/16 16:00 97.3 67 18 109/48 96 Nasal Cannula 3.0 12/19/16 15:20 79 20 100 Nasal Cannula 3.0 32 12/19/16 15:03 75 18 94 Nasal Cannula 3.0 32 12/19/16 15:03 32 12/19/16 13:37 78 122/61 12/19/16 12:00 97.9 78 18 122/61 92 Nasal Cannula 2.0 12/19/16 12:00 79 12/19/16 11:55 66 18 100 Nasal Cannula 3.0 32 12/19/16 11:42 64 19 95 Nasal Cannula 3.0 32 12/19/16 11:42 28 12/19/16 08:00 60 12/19/16 08:00 98.1 72 18 102/52 92 Nasal Cannula 2.0 Intake and Output 12/19/16 12/20/16 19:00 07:00 Intake Total 460 ml Output Total 480 ml 1040 ml Balance -20 ml -1040 ml Intake Oral 460 ml Output Urine Total 480 ml 1040 ml Objective WDWN NAD EOMI reduced breath sounds bilaterally no rhonchi or wheeze [id number] without MRG NABS nontender no HSM no CCE nonfocal alert on oxygen and comfortable no distress Laboratory Tests 12/20/16 06:35: White Blood Count 15.2H, Red Blood Count 4.35L, Hemoglobin 13.1L, Hematocrit 40.4L, Mean Corpuscular Volume 93, Mean Corpuscular Hemoglobin 30.1, Mean Corpuscular Hemoglobin Concent 32.4, Red Cell Distribution Width 12.4, Platelet Count 126L, Mean Platelet Volume 6.7, Neutrophils (%) (Auto) 82.4H, Lymphocytes (%) (Auto) 3.3L, Monocytes (%) (Auto) 12.6H, Eosinophils (%) (Auto) 0.1, Basophils (%) (Auto) 1.6, Sodium Level 144, Potassium Level 3.9, Chloride Level 97L, Carbon Dioxide Level 40H, Anion Gap 7, Blood Urea Nitrogen 34H, Creatinine 0.6L, Estimat Glomerular Filtration Rate , Glucose Level 117H, Calcium Level 8.7 , Total Bilirubin 0.6, Aspartate Amino Transf (AST/SGOT) 13, Alanine Aminotransferase (ALT/SGPT) 23, Alkaline Phosphatase 62, Total Protein 4.8L, Albumin 3.1L, Globulin 1.7, Albumin/Globulin Ratio 1.8 Current Medications Medications (Trade) Dose Ordered Sig/Larissa Route PRN Reason Start Time Stop Time Status Last Admin Dose Admin Albuterol/ Ipratropium (DuoNeb 0.5-3(2.5)mg/3ml) 3 ml Q4HRT HHN 12/16/16 03:00 12/21/16 02:59 12/20/16 07:26 Amylase/Lipase/ Protease (Pancrease) 1 ea TIAC ORAL 12/11/16 06:30 01/10/17 06:29 12/20/16 06:07 Atorvastatin Calcium (Lipitor) 10 mg BEDTIME ORAL 12/10/16 21:00 01/09/17 20:59 12/19/16 20:08 Diltiazem HCl (Cardizem) 60 mg EVERY 8 HOURS ORAL 12/10/16 22:00 01/09/17 21:59 12/20/16 06:06 Escitalopram Oxalate (Lexapro) 20 mg DAILY ORAL 12/11/16 09:00 01/10/17 08:59 12/19/16 08:38 Finasteride (Proscar) 5 mg DAILY ORAL 12/11/16 09:00 01/10/17 08:59 12/19/16 08:30 Haloperidol Lactate (Haldol) 1 mg Q6H PRN IM Agitation 12/12/16 08:45 01/11/17 08:44 12/16/16 09:59 Magnesium Hydroxide (Mom) 30 ml DAILYPRN PRN ORAL Constipation 12/10/16 18:00 01/09/17 17:59 Methylprednisolone Sodium Succinate (Solu-MEDROL) 30 mg DAILY IVP 12/19/16 09:00 01/18/17 08:59 12/19/16 08:32 Montelukast Sodium (Singulair) 10 mg QPM ORAL 12/11/16 16:30 01/10/17 16:29 12/19/16 16:53 Nebivolol (Bystolic) 10 mg DAILY ORAL 12/11/16 09:00 01/10/17 08:59 12/18/16 09:12 Nitroglycerin (Ntg) 0.4 mg Q5M PRN SL Prn Chest Pain 12/10/16 18:00 01/09/17 17:59 Nystatin (Nystatin) 5 ml QHS ORAL 12/14/16 21:00 12/21/16 20:59 12/19/16 20:07 Nystatin (Nystatin) 5 ml TIPC ORAL 12/14/16 13:00 12/21/16 12:59 12/19/16 17:40 Pantoprazole (Protonix) 40 mg DAILY ORAL 12/11/16 09:00 01/10/17 08:59 12/19/16 08:30 Propylthiouracil (Ptu) 50 mg Q12HR ORAL 12/15/16 09:00 01/14/17 08:59 12/19/16 20:07 Tamsulosin HCl (Flomax) 0.4 mg BEDTIME ORAL 12/10/16 21:00 01/09/17 20:59 12/19/16 20:08 Zolpidem Tartrate (Ambien) 5 mg HSPRN PRN ORAL Insomnia 12/10/16 18:00 01/09/17 17:59 TAVO SMITH Dec 20, 2016 07:58
--- NOTE | 2016-12-20 08:16 | Diagnostic Imaging Report ---
Clinical Indication:Chest pain Technique: IV administration nonionic contrast. Arterial phase spiral acquisition obtained through the chest, abdomen and pelvis. Multiplanar and 3-D reconstructions were generated. Total dose length product 716 mGycm. CTDIvol(s) 8, 48, 10 mGy Comparison: None Findings: Thoracic aorta and branches: The thoracic ureter is normal in caliber. There is no evidence of thoracic aortic dissection. Normal classic branching anatomy of the great neck vessels. The exam was not protocoled for evaluation of pulmonary embolus. Nonetheless, the pulmonary arteries are fairly well opacified, and there are no filling defects or other findings to suggest acute pulmonary embolus demonstrated. The heart size is normal Abdominal aorta and branches: Normal caliber abdominal aorta. There is mild atherosclerotic plaquing but no significant narrowing. No evidence of dissection. There is mild nonsignificant narrowing of the origin of the celiac axis. Proximal branches of this vessel are widely patent. Patent nonstenotic superior mesenteric artery. Patent nonstenotic inferior mesenteric artery. There are 2 right renal arteries. These are both patent without evidence of significant narrowing. Single left renal artery is also patent without significant stenosis. Bilateral common iliac, external iliac, and common femoral arteries are patent, without significant stenosis. There does appear to be significant narrowing of the proximal left superficial femoral artery. The imaging volume does not extend beyond this. Thoracic nonvascular: There is diffuse and rather severe edema of the esophageal wall, extending essentially the entire length of the thoracic esophagus. This is most notable distally. There is a small sliding-type hiatal hernia also noted. No mediastinal or hilar mass or adenopathy. No pericardial effusion. The thyroid demonstrates multiple nodules and is somewhat enlarged. Largest nodule is in the posterior right lobe, measures 12 mm long axis diameter. No axillary or chest wall mass or adenopathy demonstrated. The lungs are hyperinflated. Bullous changes are seen at the left lung apex. There is a subpleural noncalcified 2 mm nodule in the inferior right upper lobe, image 116 of series 10. There is some reticulation in the posterior right lower lobe with possibly a associated 4 mm nodule, image 110 of series 10. No acute infiltrates. No effusions. No congestion. The bones are unremarkable Abdomen pelvis nonvascular: The liver demonstrates a subcentimeter low-attenuation lesion in segment 2. There is mild ectasia of the central intrahepatic ducts, and the common hepatic duct is mildly dilated, measuring 8 mm in diameter. However, no common biliary ductal dilatation is demonstrated. The gallbladder contains multiple gallstones, but there are no pericholecystic inflammatory changes or wall thickening. The pancreas among spleen, adrenals are unremarkable. The kidneys demonstrate multiple cysts bilaterally. The prostate is enlarged. There is a Hatch catheter within the bladder. Air within the bladder presumably relates to the Hatch catheterization. There is fairly extensive colonic diverticulosis. No evidence of diverticulitis. The appendix is not definitely identified, but there are no findings to suggest acute appendicitis. No small bowel distention. No free or loculated intraperitoneal air or fluid. Impression: Diffuse and severe edema of the esophageal wall, consistent with esophagitis, nonspecific as regards etiology. Small hiatal hernia also noted No evidence of thoracic or abdominal aortic aneurysm or dissection or other acute vascular pathology Evidence of significant stenosis of the left superficial femoral artery origin, incompletely included on the imaging volume Cholelithiasis. Mildly dilated common hepatic and central intrahepatic ducts, without obvious obstructing lesion. Correlate with liver function tests, -- consider further evaluation with MRCP or ERCP if clinically indicated Multiple thyroid nodules, including dominant 12 mm right lower pole thyroid nodule. Consider further evaluation with ultrasonography if clinically indicated COPD changes 2 right lung sub-5 mm nodules, as described. Recommended followup CT scanning at 6-12 months for further evaluation Subcentimeter low-attenuation left lobe liver lesion, too small to characterize. Most likely benign simple cysts or bile hamartomas. No further followup necessary Other findings as noted, including colonic diverticulosis, Hathc catheter, prostatomegaly, bilateral renal cysts The CT scanner at [facility] is accredited by the [employer] and the scans are performed using protocols designed to limit radiation exposure to as low as reasonably achievable to attain images of sufficient resolution adequate for diagnostic evaluation.
[2016-12-20] MEDS ORDERED: PREDNISONE20 MG ORAL (08:41)
[2016-12-20] MEDS ORDERED: HALDOL INJECT5 MG/ML IM (08:41)
[2016-12-20 08:47] VITALS: BP 156/87
[2016-12-20] MEDS: Propylthiouracil 50mg tab ORAL SCH (09:00)
[2016-12-20] MEDS: Nystatin Susp 500,000 units/5ml ORAL SCH ×2 (09:00→13:29)
[2016-12-20] MEDS ORDERED: PredniSONE 20mg tab ORAL SCH (09:00)
--- NOTE | 2016-12-20 09:56 | General Progress Note ---
Assessment/Plan Assessment/Plan Assessment - Atypical CP - COPD / exhacerbation - hypothyroid on PTU - GERD - matthieu esophagitis Recommendations - push po - elevate HOB - PPI - Nystatin Subjective Allergies: Coded Allergies: No Known Allergies (Unverified , 09/26/12) Subjective No new problems awake on FM Objective Last 24 Hour Vital Signs Date Time Temp Pulse Resp B/P Pulse Ox O2 Delivery O2 Flow Rate FiO2 12/20/16 08:47 97.0 84 20 156/87 93 Nasal Cannula 2.0 12/20/16 07:26 32 12/20/16 07:26 69 18 94 Nasal Cannula 2.0 28 12/20/16 07:26 Nasal Cannula 3.0 32 12/20/16 07:26 68 16 96 Nasal Cannula 2.0 28 12/20/16 07:26 94 Nasal Cannula 3.0 32 12/20/16 06:06 73 123/68 12/20/16 04:00 62 12/20/16 04:00 97.0 71 16 137/58 92 Nasal Cannula 2.0 12/20/16 03:03 68 18 97 Nasal Cannula 2.0 28 12/20/16 02:51 64 20 94 Nasal Cannula 3.0 32 12/20/16 02:51 32 12/20/16 00:00 62 12/20/16 00:00 97.0 68 16 107/52 90 Nasal Cannula 2.0 12/19/16 23:00 67 18 98 Nasal Cannula 3.0 32 12/19/16 22:51 68 18 92 Nasal Cannula 3.0 32 12/19/16 22:51 32 12/19/16 22:19 69 127/64 12/19/16 20:00 63 12/19/16 20:00 97.4 69 20 127/64 95 Nasal Cannula 2.0 12/19/16 19:24 65 18 97 Nasal Cannula 3.0 32 12/19/16 19:17 63 18 93 Nasal Cannula 3.0 32 12/19/16 19:17 32 12/19/16 19:17 Nasal Cannula 3.0 32 12/19/16 19:17 94 Nasal Cannula 3.0 32 12/19/16 16:00 71 12/19/16 16:00 97.3 67 18 109/48 96 Nasal Cannula 3.0 12/19/16 15:20 79 20 100 Nasal Cannula 3.0 32 12/19/16 15:03 75 18 94 Nasal Cannula 3.0 32 12/19/16 15:03 32 12/19/16 13:37 78 122/61 12/19/16 12:00 97.9 78 18 122/61 92 Nasal Cannula 2.0 12/19/16 12:00 79 12/19/16 11:55 66 18 100 Nasal Cannula 3.0 32 12/19/16 11:42 64 19 95 Nasal Cannula 3.0 32 12/19/16 11:42 28 Intake and Output 12/19/16 12/20/16 19:00 07:00 Intake Total 460 ml Output Total 480 ml 1040 ml Balance -20 ml -1040 ml Intake Oral 460 ml Output Urine Total 480 ml 1040 ml Laboratory Tests 12/20/16 06:35: White Blood Count 15.2H, Red Blood Count 4.35L, Hemoglobin 13.1L, Hematocrit 40.4L, Mean Corpuscular Volume 93, Mean Corpuscular Hemoglobin 30.1, Mean Corpuscular Hemoglobin Concent 32.4, Red Cell Distribution Width 12.4, Platelet Count 126L, Mean Platelet Volume 6.7, Neutrophils (%) (Auto) 82.4H, Lymphocytes (%) (Auto) 3.3L, Monocytes (%) (Auto) 12.6H, Eosinophils (%) (Auto) 0.1, Basophils (%) (Auto) 1.6, Sodium Level 144, Potassium Level 3.9, Chloride Level 97L, Carbon Dioxide Level 40H, Anion Gap 7, Blood Urea Nitrogen 34H, Creatinine 0.6L, Estimat Glomerular Filtration Rate , Glucose Level 117H, Calcium Level 8.7 , Total Bilirubin 0.6, Aspartate Amino Transf (AST/SGOT) 13, Alanine Aminotransferase (ALT/SGPT) 23, Alkaline Phosphatase 62, Total Protein 4.8L, Albumin 3.1L, Globulin 1.7, Albumin/Globulin Ratio 1.8 Height (Feet): 5 Height (Inches): 10.00 Weight (Pounds): 130 Objective Elderly WM NCAT supple CTA except occ ronchi RRR Soft NT ND no edema non focal ALEJANDRINAPEE Dec 20, 2016 09:56
[2016-12-20 12:32] VITALS: BP 131/94
[2016-12-20 16:00] VITALS: BP 128/90
--- NOTE | 2016-12-21 00:08 | Discharge Summary ---
DATE OF ADMISSION: 12/10/2016 DATE OF DISCHARGE: 12/20/2016 DISCHARGE DIAGNOSES: 1. Respiratory failure. 2. Hematuria. 3. Pneumonia . 4. Delirium/toxic metabolic encephalopathy. 5. Severe chronic obstructive pulmonary disease exacerbation. 6. History of pancreatic insufficiency. 7. Hypertension. 8. Sinus tachycardia. DISCHARGE DIAGNOSES: 1. Respiratory failure. 2. Hematuria. 3. Pneumonia . 4. Delirium/toxic metabolic encephalopathy. 5. Severe chronic obstructive pulmonary disease exacerbation. 6. History of pancreatic insufficiency. 7. Hypertension. 8. Sinus tachycardia. HOSPITAL COURSE: The patient is a very pleasant male admitted with severe COPD exacerbation. He also had hematuria and urinary tract infection. His hospital course was complicated by respiratory failure, because of severe COPD. The patient was treated with intravenous steroids and respiratory treatments. He developed delirium likely multifactorial. He improved gradually on high doses of steroids, which were eventually weaned, but he had severe deconditioning. It was recommended that he go to half-way facility or acute rehabilitation. Family were agreeable to acute rehabilitation, but not a half-way facility. He will be transferred to the acute rehab unit where he will be continued on antibiotics, breathing treatments, and continued on oral steroid taper. DISCHARGE MEDICATIONS: Please see discharge medication list for discharge medications. DIET: Cardiac diet. ACTIVITY: Ad-danette. FOLLOWUP: The patient will be follow up in one day at the acute rehab. Nilo Arevalo M.D. DR: Andreia JOB#: [id number] CC:
--- NOTE | 2016-12-21 01:49 | Progress Note ---
DATE: 12/20/2016 CARDIOLOGY PROGRESS NOTE SUBJECTIVE: The patient feels better. No shortness of breath. Monitored rhythm is sinus. OBJECTIVE: VITAL SIGNS: Blood pressure 123/68, pulse 73, and respirations 16. LUNGS: Bilateral breath sounds. No wheezing. Scattered coarse rhonchi persists. HEART: Regular rhythm and rate. Normal S1 and S2. ABDOMEN: Soft. EXTREMITIES: Trace edema. LABORATORY DATA: White count 15 and hemoglobin 13. Sodium is 144, potassium 3.9, bicarbonate 40, BUN 34, and creatinine 0.6. Albumin is 3.1. IMPRESSION: 1. Esophagitis due to Kaylyn with gastrointestinal bleeding. 2. Paroxysmal atrial ectopy stabilized. 3. Chronic obstructive pulmonary disease with no active bronchospasm. 4. Hypertensive heart disease with controlled blood pressure. 5. Metabolic alkalosis, compensatory. 6. Degenerative aortic valve disease with stenosis clinically compensated. 7. Graves disease on propylthiouracil with adjusted dosing. 8. Chest pain resolved and pleuritic in nature. PLAN: 1. Maintain current cardiovascular regimen. 2. Outpatient followup. 3. No diuretics. 4. No anti-platelet drugs. 5. Will need close follow up. Farhad Esparza M.D. DR: MARIA ESTHER JOB#: [id number] CC:
== END 2016-12-20 17:22 | disposition short-term general hospital (02) | DRG 190 ==
LOC: EDBD 12:39 → EMR 13:15 → 2E 13:26 → EDBEDREQ 13:30 → 2E 18:38
PROC: 0DJ08ZZ Inspection of Upper Intestinal Tract, Via Natural or Artificial Opening Endoscopic (ICD-10-PCS; principal; 2016-12-16)
DX: J44.1 Chronic obstructive pulmonary disease with (acute) exacerbation (principal); J18.9 Pneumonia, unspecified organism; J96.91 Respiratory failure, unspecified with hypoxia; G92 Toxic encephalopathy; I11.0 Hypertensive heart disease with heart failure; E87.2 Acidosis; K92.2 Gastrointestinal hemorrhage, unspecified; B37.81 Candidal esophagitis; I50.32 Chronic diastolic (congestive) heart failure; N39.0 Urinary tract infection, site not specified; K21.0 Gastro-esophageal reflux disease with esophagitis; E05.00 Thyrotoxicosis with diffuse goiter without thyrotoxic crisis or storm; I49.1 Atrial premature depolarization; Z87.891 Personal history of nicotine dependence; I45.10 Unspecified right bundle-branch block; R41.0 Disorientation, unspecified; R00.0 Tachycardia, unspecified; R31.9 Hematuria, unspecified; E78.5 Hyperlipidemia, unspecified; J40 Bronchitis, not specified as acute or chronic; N40.1 Benign prostatic hyperplasia with lower urinary tract symptoms; R33.8 Other retention of urine; I35.0 Nonrheumatic aortic (valve) stenosis; R07.89 Other chest pain; R13.10 Dysphagia, unspecified
CPT/HCPCS: 36415; 36600; 71010; 71275; 72191; 74175; 74230; 80053; 81003; 82550; 82553; 82803; 82962; 83735; 83880; 84439; 84443; 84481; 84484; 85007; 85025; 85610; 85730; 93005; 94003; 94150; 94640; 94664; 94760; J2250; J2405; J3490; J7620